=== PATIENT | male | born 1970 | race American Indian/Alaskan Native ===

== ENCOUNTER 2022-01-25 17:36 | Inpatient (IN) | payer MEDICAID ==
[2022-01-25 19:18] LABS: Basophils # (Auto) 0.1 K/mm3 (0.0-0.1); Basophils % (Auto) 0.8 % (0.0-1.8); Eosinophils # (Auto) 0.1 K/mm3 (0.0-0.4); Hematocrit 30.1 % (35.5-45.6); Hemoglobin 9.5 gm/dl (11.8-15.2); Lymphocytes # (Auto) 1.4 K/mm3 (1.2-5.4); Lymphocytes % (Auto) 15.9 % (13.4-35.0); Mean Corpuscular HGB Conc 32 % (32-34); Mean Corpuscular Volume 82 fl (84-94); Monocytes # (Auto) 0.5 K/mm3 (0.0-0.8); Monocytes % (Auto) 5.2 % (0.0-7.3); Platelet Count 281 K/mm3 (140-440); Red Blood Count 3.69 M/mm3 (3.65-5.03)
[2022-01-25 19:23] LABS: Calcium 8.6 mg/dL (8.4-10.2)
--- NOTE | 2022-01-25 20:51 | Emergency Department Report ---
- General Chief complaint: Weakness Stated complaint: EMERGENCY DIALYSIS TREATMENT PUI?: No Time Seen by Provider: 01/25/22 20:34 Source: patient Mode of arrival: Ambulatory Limitations: No Limitations - History of Present Illness Initial comments: Chief complaint: "I have not had dialysis in 5 days." HPI: This is a 51-year-old male with history of hypertension, insulin-dependent diabetes, CVA, end-stage renal disease on hemodialysis who presents with request for dialysis. He has missed dialysis for the past 8 days. His last dialysis occurred on at [facility]. He came to [place] because he felt that "they were playing with my life." He recently started hemodialysis 1 month ago. He was unable to obtain access to a hemodialysis facility. MD Complaint: generalized weakness (Patient requires hemodialysis) -: days(s) (Last hemodialysis session occurred 8 days ago on last week at [facility] in [place]) Location: other (Request dialysis) Severity scale (0 -10): 0 Consistency: other (Patient requests dialysis) Improves with: other (Dialysis) Worsens with: other (Asymptomatic) Context: recent illness (Started dialysis 1 month ago) Associated Symptoms: denies other symptoms, other (Denies shortness of breath denies chest pain denies fever denies cough) - Related Data Allergies Allergy/AdvReac Type Severity Reaction Status Date / Time No Known Allergies Allergy Verified 01/25/22 20:57 ED Review of Systems ROS: Stated complaint: EMERGENCY DIALYSIS TREATMENT Other details as noted in HPI Comment: All other systems reviewed and negative Constitutional: denies: chills, fever, malaise Respiratory: denies: cough, shortness of breath Cardiovascular: denies: chest pain Gastrointestinal: denies: abdominal pain, nausea, vomiting Neurological: denies: headache Psychiatric: denies: anxiety ED Past Medical Hx - Past Medical History Previous Medical History?: Yes Hx Hypertension: Yes Hx CVA: Yes Hx Diabetes: Yes Hx Renal Disease: Yes (End-stage renal disease on hemodialysis) - Surgical History Past Surgical History?: Yes Additional Surgical History: Open heart surgery for aortic repair, laser surgery for diabetic retinopathy - Family History Family history: hypertension, renal disease - Social History Smoking Status: Never Smoker Substance Use Type: None ED Physical Exam - General Limitations: No Limitations General appearance: alert, in no apparent distress - Head Head exam: Present: atraumatic, normocephalic - Eye Eye exam: Present: normal appearance - ENT ENT exam: Present: mucous membranes moist - Neck Neck exam: Present: normal inspection, full ROM - Respiratory Respiratory exam: Present: normal lung sounds bilaterally, other (Right chest permacath: Bandage clean dry intact). Absent: respiratory distress, wheezes, rales, rhonchi - Cardiovascular Cardiovascular Exam: Present: regular rate, normal rhythm. Absent: systolic murmur, diastolic murmur, rubs, gallop - GI/Abdominal GI/Abdominal exam: Present: soft, normal bowel sounds. Absent: distended, tenderness, guarding, rebound - Rectal Rectal exam: Present: deferred - Extremities Exam Extremities exam: Present: normal inspection - Neurological Exam Neurological exam: Present: alert, oriented X3 - Psychiatric Psychiatric exam: Present: normal affect, normal mood - Skin Skin exam: Present: warm, dry, intact, normal color. Absent: rash ED Course Vital Signs 01/25/22 01/25/22 18:10 20:45 Temperature 98 F Pulse Rate 70 69 Respiratory 16 11 L Rate Blood Pressure 182/128 Blood Pressure 187/126 182/128 [Left] O2 Sat by Pulse 98 100 Oximetry ED Medical Decision Making - Lab Data Result diagrams: 01/25/22 18:54 01/25/22 18:54 - EKG Data -: EKG Interpreted by Me EKG shows normal: sinus rhythm Rate: normal - EKG Data Interpretation: nonspecific ST-T wave glenn 01/25/22 20:50 EKG obtained 1820 EKG interpreted by vt Normal sinus rhythm rate 70 bpm abnormal axis normal intervals no ST elevation nonspecific T wave pattern - Medical Decision Making End-stage renal disease on hemodialysis without access to care. Patient has hyperkalemia 5.8 with significant uremia BUN mild acidosis bicarbonate 18, pseudohyponatremia presents with acute hyper glycemia I have consulted coat joiner lockstitch on-call Dr. Bueno who requested Kayexalate. I have treated patient with sodium bicarbonate, calcium gluconate, regular insulin without dextrose , albuterol. Patient admitted to hospital service in stable condition. Hypertensive urgency addressed with home medications carvedilol and isosorbide Critical care attestation.: If time is entered above; I have spent that time in minutes in the direct care of this critically ill patient, excluding procedure time. ED Disposition Clinical Impression: End stage renal disease on dialysis, Hyperkalemia, Uremia of renal origin, Hypertensive urgency Disposition: 09 ADMITTED INPATIENT Is pt being admited?: Yes Does the pt Need Aspirin: No Condition: Stable
[2022-01-25] MEDS ORDERED: CALCIUM GLUCONATE 1,000 MG in SODIUM CHLORIDE 0.9% 100 ML IV ONE (20:53)
[2022-01-25] MEDS ORDERED: SODIUM BICARB 8.4% 50 MEQ/50 ML SYRINGE IV ONE (20:53)
[2022-01-25] MEDS ORDERED: ALBUTEROL 2.5 MG/3 ML NEBU IH ONE (20:53)
[2022-01-25] MEDS ORDERED: INSULIN REGULAR, HUMAN 100 UNITS/1 ML IV STA (20:54)
[2022-01-25] MEDS ORDERED: SODIUM POLYSTYRENE 15 GM/60 ML ORAL LIQD PO ONE (20:56)
[2022-01-25] MEDS ORDERED: carvediloL 6.25 MG TAB PO ONE (22:15)
[2022-01-25] MEDS ORDERED: carvediloL 6.25 MG TAB PO STA (22:16)
[2022-01-25] MEDS ORDERED: ISOSORBIDE DINITRATE 10 MG TAB PO ONE (22:16)
[2022-01-25] MEDS ORDERED: ONDANSETRON 4 MG/2 ML INJ IV PRN (23:17)
[2022-01-25] MEDS ORDERED: MORPHINE 2 MG/1 ML INJ IV PRN (23:17)
[2022-01-25] MEDS ORDERED: MORPHINE 4 MG/1 ML INJ IV PRN (23:17)
[2022-01-25] MEDS ORDERED: MAGNESIUM HYDROXIDE (MOM) ORAL LIQD UDC PO PRN (23:17)
[2022-01-25] MEDS ORDERED: DEXTROSE 10% *Hypoglycemia IV PRN (23:25)
--- NOTE | 2022-01-25 23:26 | History and Physical Report ---
History of Present Illness Date of examination: 01/25/22 Date of admission: 01/25/2022 Chief complaint: End-stage renal disease requesting dialysis History of present illness: To 1-year-old male with known history of hypertension, CVA, insulin-dependent diabetes mellitus and end-stage renal disease who presents to the emergency room today requesting for dialysis. Patient states he has not had dialysis for the past 8 days. Was having dialysis at [facility] and eventually came to [place] for dialysis. Patient has not been able to get established at the dialysis facility. He denies any complaints today. Work-up in the emergency room today significant findings were that of hyperkalemia of 5.8. BUN of 99 creatinine of 9.2. Patient has had insulin and glucose, sodium bicarb and Kayexalate in the emergency room for the hyperkalemia. Signs Sales Representative on-call has been notified by the ER physician for possible dialysis. Past History Past Medical History: diabetes, dialysis, ESRD, hypertension, stroke Past Surgical History: Other (Open heart surgery for aortic repair, laser surgery for diabetic retinopathy) Social history: no significant social history Family history: hypertension, other (Kidney disease) Medications and Allergies Allergies Allergy/AdvReac Type Severity Reaction Status Date / Time No Known Allergies Allergy Verified 01/25/22 20:57 Active Meds: Active Medications Acetaminophen (Acetaminophen 325 Mg Tab) 650 mg PO Q4H PRN PRN Reason: Pain MILD(1-3)/Fever >100.5/CLARK Dextrose (Dextrose 50% In Water (25gm) 50 Ml Syringe) 50 ml IV Q30MIN PRN; Protocol PRN Reason: Hypoglycemia Heparin Sodium (Porcine) (Heparin 5,000 Unit/1 Ml Vial) 5,000 unit SUB-Q Q8HR [facility] Insulin Human Lispro (Insulin Lispro 100 Unit/Ml) 0 unit SUB-Q [facility]; Pro tocol Magnesium Hydroxide (Magnesium Hydroxide (Mom) Oral Liqd Udc) 30 ml PO Q4H PRN PRN Reason: Constipation Morphine Sulfate (Morphine 2 Mg/1 Ml Inj) 2 mg IV Q4H PRN PRN Reason: Pain, Moderate (4-6) Morphine Sulfate (Morphine 4 Mg/1 Ml Inj) 4 mg IV Q4H PRN PRN Reason: Pain , Severe (7-10) Ondansetron HCl (Ondansetron 4 Mg/2 Ml Inj) 4 mg IV Q8H PRN PRN Reason: Nausea And Vomiting Sodium Chloride (Sodium Chloride 0.9% 10 Ml Flush Syringe) 10 ml IV BID KRISTINA Sodium Chloride (Sodium Chloride 0.9% 10 Ml Flush Syringe) 10 ml IV PRN PRN PRN Reason: LINE FLUSH Review of Systems Constitutional: no fever, no chills Ears, nose, mouth and throat: no nasal congestion, no sore throat Cardiovascular: no chest pain, no palpitations Respiratory: no cough, no shortness of breath Gastrointestinal: no abdominal pain, no nausea, no vomiting, no diarrhea Genitourinary Male: no dysuria, no hematuria, no flank pain, no nocturia Musculoskeletal: no neck pain, no low back pain Integumentary: no rash, no pruritis Neurological: no headaches, no confusion Psychiatric: no anxiety, no depression Endocrine: no polyphagia, no polydipsia, no polyuria, no nocturia Exam - Constitutional Vitals: Temp Pulse Resp BP Pulse Ox 98 F 68 14 184/120 100 01/25/22 18:10 01/25/22 23:01 01/25/22 23:01 01/25/22 23:01 01/25/22 23:01 General appearance: Present: no acute distress, well-nourished - EENT Eyes: Present: PERRL, EOM intact. Absent: scleral icterus ENT: hearing intact, clear oral mucosa, dentition normal - Neck Neck: Present: supple, normal ROM - Respiratory Respiratory effort: normal Respiratory: bilateral: CTA - Cardiovascular Rhythm: regular Heart Sounds: Present: S1 & S2. Absent: gallop, systolic murmur, diastolic murmur, rub, click - Extremities Extremities: no ischemia, pulses intact, pulses symmetrical, No edema, normal temperature, normal color, Full ROM Peripheral Pulses: within normal limits - Abdominal General gastrointestinal: Present: soft, non-tender, non-distended, normal bowel sounds. Absent: mass - Integumentary Integumentary: Present: clear, dry, normal turgor. Absent: rash - Musculoskeletal Musculoskeletal: strength equal bilaterally - Psychiatric Psychiatric: appropriate mood/affect, intact judgment & insight, memory intact, cooperative - Neurologic Neurologic: CNII-XII intact, no focal deficits, moves all extremities Results - Labs CBC & Chem 7: 01/25/22 18:54 01/25/22 18:54 Labs: Abnormal lab results 01/25/22 01/25/22 Range/Units 18:54 18:54 Hgb 9.5 L (11.8-15.2) gm/dl Hct 30.1 L (35.5-45.6) % MCV 82 L (84-94) fl MCH 26 L (28-32) pg RDW 20.0 H (13.2-15.2) % Seg Neutrophils % 77.1 H (40.0-70.0) % Sodium 130 L (137-145) mmol/L Potassium 5.8 H (3.6-5.0) mmol/L Chloride 92.7 L (98-107) mmol/L Carbon Dioxide 18 L (22-30) mmol/L BUN 99 H (9-20) mg/dL Creatinine 9.2 H (0.8-1.3) mg/dL Glucose 429 H (75-100) mg/dL Assessment and Plan - Patient Problems (1) End stage renal disease on dialysis Current Visit: Yes Status: Acute Plan to address problem: Consult placed to nephrology for evaluation for possible dialysis. (2) Diabetes mellitus Current Visit: Yes Status: Acute Plan to address problem: Patient placed on sliding scale insulin. We will monitor Accu-Cheks. (3) Hyperkalemia Current Visit: Yes Status: Acute Plan to address problem: Patient has had insulin and glucose, sodium bicarb and Kayexalate in the emergency room. Will monitor potassium levels. We will also monitor on telemetry. (4) Hypertensive urgency Current Visit: Yes Status: Acute Plan to address problem: Resume routine home medications and monitor vital signs closely. Patient will also be placed on IV hydralazine as needed for optimal blood pressure control. (5) DVT prophylaxis Current Visit: Yes Status: Acute Plan to address problem: Patient placed on subcutaneous heparin. (6) Full code status Current Visit: Yes Status: Acute Plan to address problem: Patient is full code.
[2022-01-26] MEDS ORDERED: HEPARIN 10,000 UNITS/10 ML VIAL IV PRN (00:07)
[2022-01-26] MEDS ORDERED: SODIUM CHLORIDE 0.9% 100 ML IV PRN ×2 (00:07→17:44)
[2022-01-26] MEDS ORDERED: FUROSEMIDE 100 MG/10 ML INJ IV ONE (00:30)
[2022-01-26 05:35] LABS: Basophils # (Auto) 0.1 K/mm3 (0.0-0.1); Basophils % (Auto) 0.9 % (0.0-1.8); Eosinophils # (Auto) 0.1 K/mm3 (0.0-0.4); Eosinophils % (Auto) 1.2 % (0.0-4.3); Hematocrit 26.2 % (35.5-45.6); Hemoglobin 8.5 gm/dl (11.8-15.2); Lymphocytes # (Auto) 1.3 K/mm3 (1.2-5.4); Lymphocytes % (Auto) 15.9 % (13.4-35.0); Mean Corpuscular HGB Conc 32 % (32-34); Mean Corpuscular Volume 80 fl (84-94); Monocytes # (Auto) 0.4 K/mm3 (0.0-0.8); Platelet Count 264 K/mm3 (140-440); Red Blood Count 3.29 M/mm3 (3.65-5.03)
[2022-01-26 05:38] LABS: Red Cell Distribution Width 20.4 % (13.2-15.2)
[2022-01-26] MEDS: HEPARIN 5,000 UNIT/1 ML VIAL SUB-Q SCH ×4 (05:47→22:00)
[2022-01-26 05:56] LABS: Calcium 8.7 mg/dL (8.4-10.2)
[2022-01-26] MEDS: ACETAMINOPHEN 325 MG TAB PO PRN (07:58)
[2022-01-26] MEDS: EPOETIN ALFA-EPBX 10,000 UNIT/1 ML VIAL SUB-Q PRN (10:00)
[2022-01-26] MEDS: INSULIN LISPRO 100 UNIT/ML SUB-Q SCH ×4 (10:03→22:31)
--- NOTE | 2022-01-26 11:03 | Consultation ---
History of Present Illness - Reason for Consult Consult date: 01/26/22 end stage renal disease, hyperkalemia - History of Present Illness The patient is a 51 YO male with history of Hypertension, DM, CVA, Anemia and ESRD on HD who presented to [facility] ED 01/26 for hemodialysis riki. Patient states that he recently moved from [place]. He was started on hemodialysis about a month ago and was last dialyzed on 01/18. He denies any complaints at this time. Work-up in the ED; K 5.8, BUN 99, Bicarb 18 and Creatinine 9.2. Patient received meds for hyperkalemia. Nephrology consulted for ESRD management. Past History Past Medical History: diabetes, dialysis, ESRD, hypertension, stroke Past Surgical History: Other (Open heart surgery for aortic repair, laser surgery for diabetic retinopathy) Social history: no significant social history Family history: hypertension, other (Kidney disease) Medications and Allergies Allergies Allergy/AdvReac Type Severity Reaction Status Date / Time No Known Allergies Allergy Verified 01/25/22 20:57 Home Medications Medication Instructions Recorded Confirmed Last Taken Type Citalopram [Celexa] 40 mg PO DAILY 01/26/22 01/26/22 Unknown History ISOSORBIDE MONOnitrate [Imdur ER] 129 mg PO DAILY 01/26/22 01/26/22 Unknown History Spironolactone [Aldactone] 100 mg PO QDAY 01/26/22 01/26/22 Unknown History carvediloL [Coreg] 25 mg PO BID 01/26/22 01/26/22 Unknown History hydrALAZINE [Apresoline] 50 mg PO Q8HR 01/26/22 01/26/22 Unknown History Active Meds: Active Medications Acetaminophen (Acetaminophen 325 Mg Tab) 650 mg PO Q4H PRN PRN Reason: Pain MILD(1-3)/Fever >100.5/CLARK Last Admin: 01/26/22 07:58 Dose: 650 mg Dextrose (Dextrose 10% *Hypoglycemia) 0 ml IV DIRECT PRN; Protocol PRN Reason: Hypoglycemia Epoetin Jb-epbx (Epoetin Jb-Epbx 10,000 Unit/1 Ml Vial) 10,000 unit SUB-Q EVELINA PRN PRN Reason: hemodialysis Heparin Sodium (Porcine) (Heparin 5,000 Unit/1 Ml Vial) 5,000 unit SUB-Q Q8HR KRISTINA Last Admin: 01/26/22 05:47 Dose: 5,000 unit Heparin Sodium (Porcine) (Heparin 10,000 Units/10 Ml Vial) 3,000 unit IV EVELINA PRN PRN Reason: hemodialysis Sodium Chloride (Nacl 0.9%) 100 mls @ 999 mls/hr IV EVELINA PRN PRN Reason: Hypotension Insulin Human Lispro (Insulin Lispro 100 Unit/Ml) 0 unit SUB-Q ACHS [facility]; Protocol Last Admin: 01/26/22 10:03 Dose: 3 unit Magnesium Hydroxide (Magnesium Hydroxide (Mom) Oral Liqd Udc) 30 ml PO Q4H PRN PRN Reason: Constipation Morphine Sulfate (Morphine 2 Mg/1 Ml Inj) 2 mg IV Q4H PRN PRN Reason: Pain, Moderate (4-6) Morphine Sulfate (Morphine 4 Mg/1 Ml Inj) 4 mg IV Q4H PRN PRN Reason: Pain , Severe (7-10) Ondansetron HCl (Ondansetron 4 Mg/2 Ml Inj) 4 mg IV Q8H PRN PRN Reason: Nausea And Vomiting Sodium Chloride (Sodium Chloride 0.9% 10 Ml Flush Syringe) 10 ml IV BID [facility] Last Admin: 01/26/22 10:03 Dose: 10 ml Sodium Chloride (Sodium Chloride 0.9% 10 Ml Flush Syringe) 10 ml IV PRN PRN PRN Reason: LINE FLUSH Review of Systems All systems: negative Exam - Vital Signs Vital signs: Vital Signs Temp Pulse Resp BP Pulse Ox 98 F 70 16 187/126 98 01/25/22 18:10 01/25/22 18:10 01/25/22 18:10 01/25/22 18:10 01/25/22 18:10 Results - Lab Results 01/26/22 05:12 01/26/22 05:12 Most recent lab results Calcium 8.7 mg/dL (8.4-10.2) 01/26/22 05:12 Assessment and Plan 1. ESRD: Patient is on maintenance hemodialysis. Currently not established with any outpatient HD unit. Meds dosage based on GFR. Hemodialysis: 01/27. 2. FEN: Hyperkalemia, improved, on HD,monitor. Monitor lytes and volume status. 3. Uncontrolled HTN: Volume control thru HD. Continue home meds. Monitor BP. Advised to limit salt and fluid intake. 4. DM-2: Monitor. 5. Anemia, POA: 2/2 ESRD. Epogen with HD as needed. Subjective: Patient was seen and examined at the bedside. General Appearance: General appearance: well-developed, thin built, appears stated age, no distress EENT: ATNC, SAM, hearing intact, vision intact Neck: neck supple, trachea midline Respiratory: ctab Heart: regular, S1S2, no murmur Abdomen: soft, NT, BS heard Integumentary: no rash, warm and dry Neurologic: alert, no focal deficit, no asterixis Ext: no edema noted Hemodialysis access: R IJ tunnel catheter
--- NOTE | 2022-01-26 11:05 | Progress Note ---
Assessment and Plan Assessment and plan: 51-year-old male with known history of hypertension, CVA, insulin-dependent diabetes mellitus and end-stage renal disease who presents to the emergency room requesting for dialysis. 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 The patient was having dialysis at [facility] and eventually came to [place] for dialysis. Patient has not been able to get established at the dialysis facility. Work-up in the emergency room today significant findings were that of hyperkalemia of 5.8. BUN of 99 creatinine of 9.2. Patient received insulin and glucose, sodium bicarb and Kayexalate in the emergency room for the hyperkalemia. ESRD Diabetes mellitus type 2 Hyperkalemia Accelerated hypertension 01/26/2022. Patient to continue with hemodialysis per nephrology recommendation s. Case management consultation to arrange for outpatient hemodialysis. Follow-up BMP History Interval history: No new issues overnight Hospitalist Physical - Constitutional Vitals: Temp Pulse Resp BP Pulse Ox 98.6 F 72 16 182/116 98 01/26/22 08:35 01/26/22 10:00 01/26/22 08:35 01/26/22 08:35 01/26/22 10:00 General appearance: Present: no acute distress, well-nourished - EENT Eyes: Present: PERRL, EOM intact ENT: hearing intact, clear oral mucosa, dentition normal - Neck Neck: Present: supple, normal ROM - Respiratory Respiratory effort: normal Respiratory: bilateral: CTA - Cardiovascular Rhythm: regular Heart Sounds: Present: S1 & S2. Absent: gallop, rub - Extremities Extremities: no ischemia, No edema, Full ROM - Abdominal General gastrointestinal: soft, non-tender, non-distended, normal bowel sounds - Integumentary Integumentary: Present: clear, warm, dry - Neurologic Neurologic: CNII-XII intact, moves all extremities Results - Labs CBC & Chem 7: 01/26/22 05:12 01/26/22 05:12 Labs: Laboratory Last Values WBC 8.3 K/mm3 (4.5-11.0) 01/26/22 05:12 RBC 3.29 M/mm3 (3.65-5.03) L 01/26/22 05:12 Hgb 8.5 gm/dl (11.8-15.2) L 01/26/22 05:12 Hct 26.2 % (35.5-45.6) L 01/26/22 05:12 MCV 80 fl (84-94) L 01/26/22 05:12 MCH 26 pg (28-32) L 01/26/22 05:12 MCHC 32 % (32-34) 01/26/22 05:12 RDW 20.4 % (13.2-15.2) H 01/26/22 05:12 Plt Count 264 K/mm3 (140-440) 01/26/22 05:12 Lymph % (Auto) 15.9 % (13.4-35.0) 01/26/22 05:12 Lewis % (Auto) 5.0 % (0.0-7.3) 01/26/22 05:12 Eos % (Auto) 1.2 % (0.0-4.3) 01/26/22 05:12 Baso % (Auto) 0.9 % (0.0-1.8) 01/26/22 05:12 Lymph # (Auto) 1.3 K/mm3 (1.2-5.4) 01/26/22 05:12 Lewis # (Auto) 0.4 K/mm3 (0.0-0.8) 01/26/22 05:12 Eos # (Auto) 0.1 K/mm3 (0.0-0.4) 01/26/22 05:12 Baso # (Auto) 0.1 K/mm3 (0.0-0.1) 01/26/22 05:12 Seg Neutrophils % 77.0 % (40.0-70.0) H 01/26/22 05:12 Seg Neutrophils # 6.4 K/mm3 (1.8-7.7) 01/26/22 05:12 Sodium 137 mmol/L (137-145) D 01/26/22 05:12 Potassium 4.5 mmol/L (3.6-5.0) D 01/26/22 05:12 Chloride 99.6 mmol/L (98-107) 01/26/22 05:12 Carbon Dioxide 18 mmol/L (22-30) L 01/26/22 05:12 Anion Gap 24 mmol/L 01/26/22 05:12 BUN 101 mg/dL (9-20) H 01/26/22 05:12 Creatinine 9.3 mg/dL (0.8-1.3) H 01/26/22 05:12 Estimated GFR 7 ml/min 01/26/22 05:12 BUN/Creatinine Ratio 11 % 01/26/22 05:12 Glucose 226 mg/dL (75-100) H 01/26/22 05:12 POC Glucose 233 mg/dL (70-105) H 01/26/22 08:30 Calcium 8.7 mg/dL (8.4-10.2) 01/26/22 05:12 He/IV: Voiding Method Urinal Active Medications - Current Medications Current Medications: Generic Name Dose Route Start Last Admin Trade Name Freq PRN Reason Stop Dose Admin Acetaminophen 650 mg 01/25/22 23:17 01/26/22 07:58 Acetaminophen 325 Mg Tab PO 650 mg Q4H PRN Administration Pain MILD(1-3)/Fever >100.5/CLARK Dextrose 0 ml 01/25/22 23:25 Dextrose 10% *Hypoglycemia IV DIRECT PRN Hypoglycemia Protocol Epoetin Jb-epbx 10,000 unit 01/26/22 00:07 Epoetin Jb-Epbx 10,000 Unit/1 Ml Vial SUB-Q EVELINA PRN hemodialysis Heparin Sodium (Porcine) 5,000 unit 01/26/22 06:00 01/26/22 05:47 Heparin 5,000 Unit/1 Ml Vial SUB-Q 5,000 unit Q8HR KRISTINA Administration Heparin Sodium (Porcine) 3,000 unit 01/26/22 00:07 Heparin 10,000 Units/10 Ml Vial IV EVELINA PRN hemodialysis Sodium Chloride 100 mls @ 999 mls/hr 01/26/22 00:07 Nacl 0.9% IV EVELINA PRN Hypotension Insulin Human Lispro 0 unit 01/26/22 07:30 01/26/22 10:03 Insulin Lispro 100 Unit/Ml SUB-Q 3 unit ACHS KRISTINA Administration Protocol Magnesium Hydroxide 30 ml 01/25/22 23:17 Magnesium Hydroxide (Mom) Oral Liqd Udc PO Q4H PRN Constipation Morphine Sulfate 2 mg 01/25/22 23:17 Morphine 2 Mg/1 Ml Inj IV Q4H PRN Pain, Moderate (4-6) Morphine Sulfate 4 mg 01/25/22 23:17 Morphine 4 Mg/1 Ml Inj IV Q4H PRN Pain , Severe (7-10) Ondansetron HCl 4 mg 01/25/22 23:17 Ondansetron 4 Mg/2 Ml Inj IV Q8H PRN Nausea And Vomiting Sodium Chloride 10 ml 01/26/22 10:00 01/26/22 10:03 Sodium Chloride 0.9% 10 Ml Flush Syringe IV 10 ml BID KRISTINA Administration Sodium Chloride 10 ml 01/25/22 23:17 Sodium Chloride 0.9% 10 Ml Flush Syringe IV PRN PRN LINE FLUSH
[2022-01-26 15:34] LABS: Hepatitis B Surface Antigen Non-Reactive (Negative); Hepatitis C Virus Antibody Non-Reactive (NonReactive)
[2022-01-26] MEDS: cloNIDine 0.1 MG TAB PO PRN ×3 (17:45→18:45)
[2022-01-26] MEDS: NIFEdipine XL 90 MG TAB PO SCH (19:51)
[2022-01-26] MEDS: CITALOPRAM 20 MG TAB PO SCH (21:40)
[2022-01-26] MEDS: hydrALAZINE 25 MG TAB PO SCH (21:40)
[2022-01-26] MEDS: SPIRONOLACTONE 50 MG TAB PO SCH (21:41)
[2022-01-26] MEDS: carvediloL 25 MG TAB PO SCH (21:47)
[2022-01-27] MEDS: HEPARIN 5,000 UNIT/1 ML VIAL SUB-Q SCH ×3 (05:02→21:14)
[2022-01-27] MEDS: hydrALAZINE 25 MG TAB PO SCH ×3 (05:03→21:14)
[2022-01-27 05:39] LABS: Basophils % (Auto) 0.5 % (0.0-1.8); Eosinophils # (Auto) 0.1 K/mm3 (0.0-0.4); Eosinophils % (Auto) 0.9 % (0.0-4.3); Hematocrit 27.6 % (35.5-45.6); Hemoglobin 8.8 gm/dl (11.8-15.2); Lymphocytes # (Auto) 1.2 K/mm3 (1.2-5.4); Lymphocytes % (Auto) 14.1 % (13.4-35.0); Mean Corpuscular HGB Conc 32 % (32-34); Mean Corpuscular Volume 81 fl (84-94); Monocytes # (Auto) 0.5 K/mm3 (0.0-0.8); Monocytes % (Auto) 5.3 % (0.0-7.3); Platelet Count 284 K/mm3 (140-440); Red Blood Count 3.42 M/mm3 (3.65-5.03); Red Cell Distribution Width 19.8 % (13.2-15.2)
[2022-01-27 06:00] LABS: Calcium 8.2 mg/dL (8.4-10.2)
[2022-01-27] MEDS: carvediloL 25 MG TAB PO SCH ×2 (08:00→17:16)
[2022-01-27] MEDS: INSULIN LISPRO 100 UNIT/ML SUB-Q SCH ×4 (08:00→21:37)
[2022-01-27] MEDS: ACETAMINOPHEN 325 MG TAB PO PRN (09:23)
[2022-01-27] MEDS: CITALOPRAM 20 MG TAB PO SCH (11:11)
[2022-01-27] MEDS: NIFEdipine XL 90 MG TAB PO SCH (11:11)
[2022-01-27] MEDS: SPIRONOLACTONE 50 MG TAB PO SCH (11:11)
--- NOTE | 2022-01-27 11:16 | Discharge Summary ---
Providers - Providers Date of Admission: 01/25/22 23:17 Date of discharge: 01/27/22 Attending physician: FRANK JOHNSON 01/25/22 22:05 Consult to Physician [CONS] Stat Comment: Consulting Provider: MARCELINA HANSEN Physician Instructions: Reason For Exam: ESRD on HD 01/25/22 23:17 Consult to Dietitian/Nutrition [CONS] Routine Physician Instructions: Reason For Exam: Reason for Consult: Diet education [facility] Reason for admission: Missed hemodialysis Condition: Stable Hospital course: 51 YO male with history of Hypertension, DM, CVA, Anemia and ESRD on HD who presented to [facility] ED 01/26 for hemodialysis. Patient stated that he recently moved from [place]. He was started on hemodialysis about a month ago and was last dialyzed on 01/18. He denied any complaints at this time. Work-up in the ED; K 5.8, BUN 99, Bicarb 18 and Creatinine 9.2. Patient received meds for hyperkalemia. Nephrology consulted for ESRD management. The patient received hemodialysis with stabilization of potassium and volume status. Patient is felt to have received maximal hospital benefit and will be discharged home. Dedicated discharge time 35 minutes Disposition: 01 HOME / SELF CARE / HOMELESS Final Discharge Diagnosis (Prints w/discharge instructions): ESRD with missed HD, hypertension, diabetes mellitus type 2, anemia of chronic disease. Core Measure Documentation - Palliative Care Palliative Care/ Comfort Measures: Not Applicable - Core Measures Any of the following diagnoses?: none Exam - Constitutional Vitals: Temp Pulse Resp BP Pulse Ox 98.4 F 68 16 108/59 100 01/27/22 07:59 01/27/22 07:59 01/27/22 07:59 01/27/22 07:59 01/27/22 07:59 General appearance: Present: no acute distress, well-nourished - EENT Eyes: Present: PERRL ENT: hearing intact, clear oral mucosa - Neck Neck: Present: supple, normal ROM - Respiratory Respiratory effort: normal Respiratory: bilateral: CTA - Cardiovascular Heart Sounds: Present: S1 & S2. Absent: rub, click - Extremities Extremities: pulses symmetrical, No edema Peripheral Pulses: within normal limits - Abdominal General gastrointestinal: Present: soft, non-tender, non-distended, normal bowel sounds Male genitourinary: Present: normal - Integumentary Integumentary: Present: clear, warm, dry - Musculoskeletal Musculoskeletal: gait normal, strength equal bilaterally - Psychiatric Psychiatric: appropriate mood/affect, intact judgment & insight - Neurologic Neurologic: CNII-XII intact, moves all extremities Plan Activity: advance as tolerated Weight Bearing Status: Weight Bear as Tolerated Diet: renal Follow up with: CHAVO HERNANDEZ MD [Primary Care Provider] - 3-5 Days Prescriptions: Spironolactone [Aldactone] 100 mg PO QDAY #30 hydrALAZINE [Apresoline TAB] 50 mg PO Q8HR #90 Citalopram [Celexa] 40 mg PO DAILY #30 carvediloL [Coreg] 25 mg PO BID #60 ISOSORBIDE MONOnitrate [Imdur ER] 129 mg PO DAILY #30 NIFEdipine XL [Procardia Xl] 90 mg PO QDAY #30 tablet
--- NOTE | 2022-01-27 13:35 | Progress Note ---
Assessment and Plan 1. ESRD: Patient is on maintenance hemodialysis. Currently not established with any outpatient HD unit. Meds dosage based on GFR. Hemodialysis: 01/27. 2. FEN: Hyperkalemia, improved, on HD,monitor. Monitor lytes and volume status. 3. Uncontrolled HTN: Volume control thru HD. Continue home meds. Monitor BP, controlled now. Advised to limit salt and fluid intake. 4. DM-2: Monitor. 5. Anemia, POA: 2/2 ESRD. Epogen with HD as needed. Need outpatient HD chair. Subjective: Patient was seen and examined at the bedside. Doing ok. General Appearance: General appearance: well-developed, thin built, appears stated age, no distress EENT: ATNC, SAM, hearing intact, vision intact Neck: neck supple, trachea midline Respiratory: ctab Heart: regular, S1S2, no murmur Abdomen: soft, NT, BS heard Integumentary: no rash, warm and dry Neurologic: alert, no focal deficit, no asterixis Ext: no edema noted Hemodialysis access: R IJ tunnel catheter Subjective Date of service: 01/27/22 Objective - Vital Signs Vital signs: Vital Signs - 12hr 01/27/22 01/27/22 01/27/22 04:42 05:03 07:59 Temperature 98.1 F 98.4 F Pulse Rate 73 68 Respiratory 18 16 Rate Blood Pressure 130/71 130/71 108/59 O2 Sat by Pulse 98 100 Oximetry 01/27/22 11:55 Temperature 98.0 F Pulse Rate 69 Respiratory 16 Rate Blood Pressure 111/62 O2 Sat by Pulse 100 Oximetry - Lab 01/27/22 05:02 01/27/22 05:02 Most recent lab results Calcium 8.2 mg/dL (8.4-10.2) L 01/27/22 05:02 Medications & Allergies - Medications Allergies/Adverse Reactions: Allergies No Known Allergies Allergy (Verified 01/25/22 20:57) Home Medications: Home Medications Medication Instructions Recorded Confirmed Last Taken Type Citalopram [Celexa] 40 mg PO DAILY #30 01/27/22 Unknown Rx ISOSORBIDE MONOnitrate [Imdur ER] 129 mg PO DAILY #30 01/27/22 Unknown Rx NIFEdipine XL [Procardia Xl] 90 mg PO QDAY #30 tablet 01/27/22 Unknown Rx Spironolactone [Aldactone] 100 mg PO QDAY #30 01/27/22 Unknown Rx carvediloL [Coreg] 25 mg PO BID #60 01/27/22 Unknown Rx hydrALAZINE [Apresoline TAB] 50 mg PO Q8HR #90 01/27/22 Unknown Rx Active Medications: Generic Name Dose Route Start Last Admin Trade Name Freq PRN Reason Stop Dose Admin Acetaminophen 650 mg 01/25/22 23:17 01/27/22 09:23 Acetaminophen 325 Mg Tab PO 650 mg Q4H PRN Administration Pain MILD(1-3)/Fever >100.5/CLARK Carvedilol 25 mg 01/26/22 22:00 01/27/22 08:00 Carvedilol 25 Mg Tab PO 25 mg BID@0800,1700 KRISTINA Administration Citalopram Hydrobromide 40 mg 01/26/22 22:00 01/27/22 11:11 Citalopram 20 Mg Tab PO 40 mg QDAY KRISTINA Administration Clonidine HCl 0.1 mg 01/26/22 17:44 01/26/22 18:45 Clonidine 0.1 Mg Tab PO 0.1 mg EVELINA PRN Administration Hypertension Dextrose 0 ml 01/25/22 23:25 Dextrose 10% *Hypoglycemia IV DIRECT PRN Hypoglycemia Protocol Epoetin Jb-epbx 10,000 unit 01/26/22 00:07 Epoetin Jb-Epbx 10,000 Unit/1 Ml Vial SUB-Q EVELINA PRN hemodialysis Heparin Sodium (Porcine) 5,000 unit 01/26/22 06:00 01/27/22 05:02 Heparin 5,000 Unit/1 Ml Vial SUB-Q Not Given Q8HR KRISTINA Heparin Sodium (Porcine) 3,000 unit 01/26/22 00:07 Heparin 10,000 Units/10 Ml Vial IV EVELINA PRN hemodialysis Hydralazine HCl 50 mg 01/26/22 22:00 01/27/22 05:03 Hydralazine 25 Mg Tab PO 50 mg Q8HR KRISTINA Administration Sodium Chloride 100 mls @ 999 mls/hr 01/26/22 17:44 Nacl 0.9% IV EVELINA PRN Hypotension Insulin Human Lispro 0 unit 01/26/22 07:30 01/27/22 12:47 Insulin Lispro 100 Unit/Ml SUB-Q 4 unit ACHS KRISTINA Administration Protocol Isosorbide Mononitrate 120 mg 01/26/22 22:00 01/27/22 11:11 Isosorbide Mononitrate Er 60 Mg Tab PO 120 mg QDAY KRISTINA Administration Magnesium Hydroxide 30 ml 01/25/22 23:17 Magnesium Hydroxide (Mom) Oral Liqd Udc PO Q4H PRN Constipation Morphine Sulfate 2 mg 01/25/22 23:17 Morphine 2 Mg/1 Ml Inj IV Q4H PRN Pain, Moderate (4-6) Morphine Sulfate 4 mg 01/25/22 23:17 Morphine 4 Mg/1 Ml Inj IV Q4H PRN Pain , Severe (7-10) Nifedipine 90 mg 01/26/22 19:00 01/27/22 11:11 Nifedipine Xl 90 Mg Tab PO 90 mg QDAY KRISTINA Administration Ondansetron HCl 4 mg 01/25/22 23:17 Ondansetron 4 Mg/2 Ml Inj IV Q8H PRN Nausea And Vomiting Sodium Chloride 10 ml 01/26/22 10:00 01/27/22 11:12 Sodium Chloride 0.9% 10 Ml Flush Syringe IV 10 ml BID KRISTINA Administration Sodium Chloride 10 ml 01/25/22 23:17 Sodium Chloride 0.9% 10 Ml Flush Syringe IV PRN PRN LINE FLUSH Spironolactone 100 mg 01/26/22 22:00 01/27/22 11:11 Spironolactone 50 Mg Tab PO 100 mg QDAY KRISTINA Administration
[2022-01-28] MEDS: ACETAMINOPHEN 325 MG TAB PO PRN ×2 (03:56→23:40)
[2022-01-28] MEDS: hydrALAZINE 25 MG TAB PO SCH ×3 (06:01→21:40)
[2022-01-28] MEDS: HEPARIN 5,000 UNIT/1 ML VIAL SUB-Q SCH ×3 (06:24→23:36)
--- NOTE | 2022-01-28 08:36 | Electrocardiograph Report ---
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
[2022-01-28] MEDS: INSULIN LISPRO 100 UNIT/ML SUB-Q SCH ×4 (08:46→23:40)
[2022-01-28] MEDS: carvediloL 25 MG TAB PO SCH ×2 (08:47→17:19)
--- NOTE | 2022-01-28 08:54 | Progress Note ---
Assessment and Plan Assessment and plan: 51-year-old male with known history of hypertension, CVA, insulin-dependent diabetes mellitus and end-stage renal disease who presents to the emergency room requesting for dialysis. 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 The patient was having dialysis at [facility] and eventually came to [place] for dialysis. Patient has not been able to get established at the dialysis facility. Work-up in the emergency room today significant findings were that of hyperkalemia of 5.8. BUN of 99 creatinine of 9.2. Patient received insulin and glucose, sodium bicarb and Kayexalate in the emergency room for the hyperkalemia. ESRD Diabetes mellitus type 2 Hyperkalemia Accelerated hypertension 01/26/2022. Patient to continue with hemodialysis per nephrology recommendation s. Case management consultation to arrange for outpatient hemodialysis. Follow-up BMP 01/27/2022. Patient to continue with hemodialysis per nephrology recommendations. Await case management follow-up with regards to outpatient hemodialysis History Interval history: No new issues overnight Hospitalist Physical - Constitutional Vitals: Temp Pulse Resp BP Pulse Ox 97.8 F 77 19 135/75 100 01/28/22 08:34 01/28/22 08:47 01/28/22 03:24 01/28/22 08:34 01/28/22 08:34 General appearance: Present: no acute distress, well-nourished - EENT Eyes: Present: PERRL, EOM intact ENT: hearing intact, clear oral mucosa, dentition normal - Neck Neck: Present: supple, normal ROM - Respiratory Respiratory effort: normal Respiratory: bilateral: CTA - Cardiovascular Rhythm: regular Heart Sounds: Present: S1 & S2. Absent: gallop, rub - Extremities Extremities: no ischemia, No edema, Full ROM - Abdominal General gastrointestinal: soft, non-tender, non-distended, normal bowel sounds - Integumentary Integumentary: Present: clear, warm, dry - Neurologic Neurologic: CNII-XII intact, moves all extremities Results - Labs CBC & Chem 7: 01/27/22 05:02 01/27/22 05:02 Labs: Laboratory Last Values WBC 8.7 K/mm3 (4.5-11.0) 01/27/22 05:02 RBC 3.42 M/mm3 (3.65-5.03) L 01/27/22 05:02 Hgb 8.8 gm/dl (11.8-15.2) L 01/27/22 05:02 Hct 27.6 % (35.5-45.6) L 01/27/22 05:02 MCV 81 fl (84-94) L 01/27/22 05:02 MCH 26 pg (28-32) L 01/27/22 05:02 MCHC 32 % (32-34) 01/27/22 05:02 RDW 19.8 % (13.2-15.2) H 01/27/22 05:02 Plt Count 284 K/mm3 (140-440) 01/27/22 05:02 Lymph % (Auto) 14.1 % (13.4-35.0) 01/27/22 05:02 [place] % (Auto) 5.3 % (0.0-7.3) 01/27/22 05:02 Eos % (Auto) 0.9 % (0.0-4.3) 01/27/22 05:02 Baso % (Auto) 0.5 % (0.0-1.8) 01/27/22 05:02 Lymph # (Auto) 1.2 K/mm3 (1.2-5.4) 01/27/22 05:02 [place] # (Auto) 0.5 K/mm3 (0.0-0.8) 01/27/22 05:02 Eos # (Auto) 0.1 K/mm3 (0.0-0.4) 01/27/22 05:02 Baso # (Auto) 0.0 K/mm3 (0.0-0.1) 01/27/22 05:02 Seg Neutrophils % 79.2 % (40.0-70.0) H 01/27/22 05:02 Seg Neutrophils # 6.9 K/mm3 (1.8-7.7) 01/27/22 05:02 Sodium 134 mmol/L (137-145) L 01/27/22 05:02 Potassium 3.7 mmol/L (3.6-5.0) 01/27/22 05:02 Chloride 96.1 mmol/L (98-107) L 01/27/22 05:02 Carbon Dioxide 23 mmol/L (22-30) 01/27/22 05:02 Anion Gap 19 mmol/L 01/27/22 05:02 BUN 45 mg/dL (9-20) H 01/27/22 05:02 Creatinine 5.3 mg/dL (0.8-1.3) H 01/27/22 05:02 Estimated GFR 14 ml/min 01/27/22 05:02 BUN/Creatinine Ratio 8 % 01/27/22 05:02 Glucose 229 mg/dL (75-100) H 01/27/22 05:02 POC Glucose 169 mg/dL (70-105) H 01/28/22 08:28 Calcium 8.2 mg/dL (8.4-10.2) L 01/27/22 05:02 Hepatitis A IgM Ab Non-reactive (NonReactive) 01/26/22 14:22 Hep Bs Antigen Non-reactive (Negative) 01/26/22 14:22 Hep B Core IgM Ab Non-reactive (NonReactive) 01/26/22 14:22 Hepatitis C Antibody Non-reactive (NonReactive) 01/26/22 14:22 He/IV: Voiding Method Urinal Active Medications - Current Medications Current Medications: Generic Name Dose Route Start Last Admin Trade Name Freq PRN Reason Stop Dose Admin Acetaminophen 650 mg 01/25/22 23:17 01/28/22 03:56 Acetaminophen 325 Mg Tab PO 650 mg Q4H PRN Administration Pain MILD(1-3)/Fever >100.5/CLARK Carvedilol 25 mg 01/26/22 22:00 01/28/22 08:47 Carvedilol 25 Mg Tab PO 25 mg BID@0800,1700 KRISTINA Administration Citalopram Hydrobromide 40 mg 01/26/22 22:00 01/27/22 11:11 Citalopram 20 Mg Tab PO 40 mg QDAY KRISTINA Administration Clonidine HCl 0.1 mg 01/26/22 17:44 01/26/22 18:45 Clonidine 0.1 Mg Tab PO 0.1 mg EVELINA PRN Administration Hypertension Dextrose 0 ml 01/25/22 23:25 Dextrose 10% *Hypoglycemia IV DIRECT PRN Hypoglycemia Protocol Epoetin Jb-epbx 10,000 unit 01/26/22 00:07 Epoetin Jb-Epbx 10,000 Unit/1 Ml Vial SUB-Q EVELINA PRN hemodialysis Heparin Sodium (Porcine) 5,000 unit 01/26/22 06:00 01/28/22 06:24 Heparin 5,000 Unit/1 Ml Vial SUB-Q Not Given Q8HR [facility] Heparin Sodium (Porcine) 3,000 unit 01/26/22 00:07 Heparin 10,000 Units/10 Ml Vial IV EVELINA PRN hemodialysis Hydralazine HCl 50 mg 01/26/22 22:00 01/28/22 06:01 Hydralazine 25 Mg Tab PO 50 mg Q8HR [facility] Administration Sodium Chloride 100 mls @ 999 mls/hr 01/26/22 17:44 Nacl 0.9% IV EVELINA PRN Hypotension Insulin Human Lispro 0 unit 01/26/22 07:30 01/28/22 08:46 Insulin Lispro 100 Unit/Ml SUB-Q 2 unit ACHS [facility] Administration Protocol Isosorbide Mononitrate 120 mg 01/26/22 22:00 01/27/22 11:11 Isosorbide Mononitrate Er 60 Mg Tab PO 120 mg QDAY [facility] Administration Magnesium Hydroxide 30 ml 01/25/22 23:17 Magnesium Hydroxide (Mom) Oral Liqd Udc PO Q4H PRN Constipation Morphine Sulfate 2 mg 01/25/22 23:17 Morphine 2 Mg/1 Ml Inj IV Q4H PRN Pain, Moderate (4-6) Morphine Sulfate 4 mg 01/25/22 23:17 Morphine 4 Mg/1 Ml Inj IV Q4H PRN Pain , Severe (7-10) Nifedipine 90 mg 01/26/22 19:00 01/27/22 11:11 Nifedipine Xl 90 Mg Tab PO 90 mg QDAY [facility] Administration Ondansetron HCl 4 mg 01/25/22 23:17 Ondansetron 4 Mg/2 Ml Inj IV Q8H PRN Nausea And Vomiting Sodium Chloride 10 ml 01/26/22 10:00 01/27/22 21:15 Sodium Chloride 0.9% 10 Ml Flush Syringe IV 10 ml BID KRISTINA Administration Sodium Chloride 10 ml 01/25/22 23:17 Sodium Chloride 0.9% 10 Ml Flush Syringe IV PRN PRN LINE FLUSH Spironolactone 100 mg 01/26/22 22:00 01/27/22 11:11 Spironolactone 50 Mg Tab PO 100 mg QDAY [facility] Administration Nutrition/Malnutrition Assess - Dietary Evaluation Nutrition/Malnutrition Findings: Nutrition Notes Start: 01/27/22 14:53 Freq: Status: Active Protocol: Document 01/27/22 14:53 RS (Rec: 01/27/22 15:06 RS [id number]) Nutrition Notes Need for Assessment generated from: MD Order Initial or Follow up Assessment Current Diagnosis CKD (stage V CKD),Diabetes, Hypertension Other Pertinent Diagnosis CVA Current Diet Cardiac/Consistent CHO diet Labs/Tests Na:134 Cl: 96.1 BUN:45 Cr: 5.3 GLU:229 Ca: 8.2 Pertinent Medications reviewed Subjective/Other Information MD Consult for diet education. Pt does not have outpatient HD facility and must dialyze in hospital. RD provided education on renal diet. RD reviewed importance of HBV protein in relation to medical condition. RD reviewed high/ low potassium foods. RD reviewed sodium/fluid restrictions 2g/1L restriction . RD reviewed foods high in dietary PO4 and advised pt to avoid/limit high PO4 foods. Pt reports good appetite, eating well, and consumes meals BID. No GI or digestive concerns noted. Will sign off. #1 Nutrition Diagnosis Food and nutrition-related knowledge deficit Etiology ESRD renal diet As Evidenced by Signs and Symptoms pt verbalizing not having dialysis diet education before and pt does not belong to an outpatient HD clinic Diagnosis Progress(for reassessment Resolved documentation) Nutrition Intervention Learning Readiness Good Teaching Methods Discussion Anticipated Discharge Needs: Renal diet Revisit per MD consult or patient Sign Off request:
--- NOTE | 2022-01-28 08:55 | Progress Note ---
Assessment and Plan Assessment and plan: 51-year-old male with known history of hypertension, CVA, insulin-dependent diabetes mellitus and end-stage renal disease who presents to the emergency room requesting for dialysis. 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 Patient has not been able to get established at the dialysis facility. Work-up in the emergency room today significant findings were that of hyperkalemia of 5.8. BUN of 99 creatinine of 9.2. Patient received insulin and glucose, sodium bicarb and Kayexalate in the emergency room for the hyperkalemia. ESRD Diabetes mellitus type 2 Hyperkalemia Accelerated hypertension 01/26/2022. Patient to continue with hemodialysis per nephrology recommendation s. Case management consultation to arrange for outpatient hemodialysis. Follow-up BMP 01/27/2022. Patient to continue with hemodialysis per nephrology recommendations. Await case management follow-up with regards to outpatient hemodialysis 01/28/2022. Continue hemodialysis per nephrology recommendations. I discussed with nephrology the need for arrangements around outpatient hemodialysis. Await case management follow-up History Interval history: No new issues overnight Hospitalist Physical - Constitutional Vitals: Temp Pulse Resp BP Pulse Ox 97.8 F 77 19 135/75 100 01/28/22 08:34 01/28/22 08:47 01/28/22 03:24 01/28/22 08:34 01/28/22 08:34 General appearance: Present: no acute distress, well-nourished - EENT Eyes: Present: PERRL, EOM intact ENT: hearing intact, clear oral mucosa, dentition normal - Neck Neck: Present: supple, normal ROM - Respiratory Respiratory effort: normal Respiratory: bilateral: CTA - Cardiovascular Rhythm: regular Heart Sounds: Present: S1 & S2. Absent: gallop, rub - Extremities Extremities: no ischemia, No edema, Full ROM - Abdominal General gastrointestinal: soft, non-tender, non-distended, normal bowel sounds - Integumentary Integumentary: Present: clear, warm, dry - Neurologic Neurologic: CNII-XII intact, moves all extremities Results - Labs CBC & Chem 7: 01/27/22 05:02 01/27/22 05:02 Labs: Laboratory Last Values WBC 8.7 K/mm3 (4.5-11.0) 01/27/22 05:02 RBC 3.42 M/mm3 (3.65-5.03) L 01/27/22 05:02 Hgb 8.8 gm/dl (11.8-15.2) L 01/27/22 05:02 Hct 27.6 % (35.5-45.6) L 01/27/22 05:02 MCV 81 fl (84-94) L 01/27/22 05:02 MCH 26 pg (28-32) L 01/27/22 05:02 MCHC 32 % (32-34) 01/27/22 05:02 RDW 19.8 % (13.2-15.2) H 01/27/22 05:02 Plt Count 284 K/mm3 (140-440) 01/27/22 05:02 Lymph % (Auto) 14.1 % (13.4-35.0) 01/27/22 05:02 [place] % (Auto) 5.3 % (0.0-7.3) 01/27/22 05:02 Eos % (Auto) 0.9 % (0.0-4.3) 01/27/22 05:02 Baso % (Auto) 0.5 % (0.0-1.8) 01/27/22 05:02 Lymph # (Auto) 1.2 K/mm3 (1.2-5.4) 01/27/22 05:02 [place] # (Auto) 0.5 K/mm3 (0.0-0.8) 01/27/22 05:02 Eos # (Auto) 0.1 K/mm3 (0.0-0.4) 01/27/22 05:02 Baso # (Auto) 0.0 K/mm3 (0.0-0.1) 01/27/22 05:02 Seg Neutrophils % 79.2 % (40.0-70.0) H 01/27/22 05:02 Seg Neutrophils # 6.9 K/mm3 (1.8-7.7) 01/27/22 05:02 Sodium 134 mmol/L (137-145) L 01/27/22 05:02 Potassium 3.7 mmol/L (3.6-5.0) 01/27/22 05:02 Chloride 96.1 mmol/L (98-107) L 01/27/22 05:02 Carbon Dioxide 23 mmol/L (22-30) 01/27/22 05:02 Anion Gap 19 mmol/L 01/27/22 05:02 BUN 45 mg/dL (9-20) H 01/27/22 05:02 Creatinine 5.3 mg/dL (0.8-1.3) H 01/27/22 05:02 Estimated GFR 14 ml/min 01/27/22 05:02 BUN/Creatinine Ratio 8 % 01/27/22 05:02 Glucose 229 mg/dL (75-100) H 01/27/22 05:02 POC Glucose 169 mg/dL (70-105) H 01/28/22 08:28 Calcium 8.2 mg/dL (8.4-10.2) L 01/27/22 05:02 Hepatitis A IgM Ab Non-reactive (NonReactive) 01/26/22 14:22 Hep Bs Antigen Non-reactive (Negative) 01/26/22 14:22 Hep B Core IgM Ab Non-reactive (NonReactive) 01/26/22 14:22 Hepatitis C Antibody Non-reactive (NonReactive) 01/26/22 14:22 He/IV: Voiding Method Urinal Active Medications - Current Medications Current Medications: Generic Name Dose Route Start Last Admin Trade Name Freq PRN Reason Stop Dose Admin Acetaminophen 650 mg 01/25/22 23:17 01/28/22 03:56 Acetaminophen 325 Mg Tab PO 650 mg Q4H PRN Administration Pain MILD(1-3)/Fever >100.5/CLARK Carvedilol 25 mg 01/26/22 22:00 01/28/22 08:47 Carvedilol 25 Mg Tab PO 25 mg BID@0800,1700 KRISTINA Administration Citalopram Hydrobromide 40 mg 01/26/22 22:00 01/27/22 11:11 Citalopram 20 Mg Tab PO 40 mg QDAY KRISTINA Administration Clonidine HCl 0.1 mg 01/26/22 17:44 01/26/22 18:45 Clonidine 0.1 Mg Tab PO 0.1 mg EVELINA PRN Administration Hypertension Dextrose 0 ml 01/25/22 23:25 Dextrose 10% *Hypoglycemia IV DIRECT PRN Hypoglycemia Protocol Epoetin Jb-epbx 10,000 unit 01/26/22 00:07 Epoetin Jb-Epbx 10,000 Unit/1 Ml Vial SUB-Q EVELINA PRN hemodialysis Heparin Sodium (Porcine) 5,000 unit 01/26/22 06:00 01/28/22 06:24 Heparin 5,000 Unit/1 Ml Vial SUB-Q Not Given Q8HR [facility] Heparin Sodium (Porcine) 3,000 unit 01/26/22 00:07 Heparin 10,000 Units/10 Ml Vial IV EVELINA PRN hemodialysis Hydralazine HCl 50 mg 01/26/22 22:00 01/28/22 06:01 Hydralazine 25 Mg Tab PO 50 mg Q8HR KRISTINA Administration Sodium Chloride 100 mls @ 999 mls/hr 01/26/22 17:44 Nacl 0.9% IV EVELINA PRN Hypotension Insulin Human Lispro 0 unit 01/26/22 07:30 01/28/22 08:46 Insulin Lispro 100 Unit/Ml SUB-Q 2 unit ACHS KRISTINA Administration Protocol Isosorbide Mononitrate 120 mg 01/26/22 22:00 01/27/22 11:11 Isosorbide Mononitrate Er 60 Mg Tab PO 120 mg QDAY [facility] Administration Magnesium Hydroxide 30 ml 01/25/22 23:17 Magnesium Hydroxide (Mom) Oral Liqd Udc PO Q4H PRN Constipation Morphine Sulfate 2 mg 01/25/22 23:17 Morphine 2 Mg/1 Ml Inj IV Q4H PRN Pain, Moderate (4-6) Morphine Sulfate 4 mg 01/25/22 23:17 Morphine 4 Mg/1 Ml Inj IV Q4H PRN Pain , Severe (7-10) Nifedipine 90 mg 01/26/22 19:00 01/27/22 11:11 Nifedipine Xl 90 Mg Tab PO 90 mg QDAY [facility] Administration Ondansetron HCl 4 mg 01/25/22 23:17 Ondansetron 4 Mg/2 Ml Inj IV Q8H PRN Nausea And Vomiting Sodium Chloride 10 ml 01/26/22 10:00 01/27/22 21:15 Sodium Chloride 0.9% 10 Ml Flush Syringe IV 10 ml BID KRISTINA Administration Sodium Chloride 10 ml 01/25/22 23:17 Sodium Chloride 0.9% 10 Ml Flush Syringe IV PRN PRN LINE FLUSH Spironolactone 100 mg 01/26/22 22:00 01/27/22 11:11 Spironolactone 50 Mg Tab PO 100 mg QDAY KRISTINA Administration Nutrition/Malnutrition Assess - Dietary Evaluation Nutrition/Malnutrition Findings: Nutrition Notes Start: 01/27/22 14:53 Freq: Status: Active Protocol: Document 01/27/22 14:53 RS (Rec: 01/27/22 15:06 RS [id number]) Nutrition Notes Need for Assessment generated from: MD Order Initial or Follow up Assessment Current Diagnosis CKD (stage V CKD),Diabetes, Hypertension Other Pertinent Diagnosis CVA Current Diet Cardiac/Consistent CHO diet Labs/Tests Na:134 Cl: 96.1 BUN:45 Cr: 5.3 GLU:229 Ca: 8.2 Pertinent Medications reviewed Subjective/Other Information MD Consult for diet education. Pt does not have outpatient HD facility and must dialyze in hospital. RD provided education on renal diet. RD reviewed importance of HBV protein in relation to medical condition. RD reviewed high/ low potassium foods. RD reviewed sodium/fluid restrictions 2g/1L restriction . RD reviewed foods high in dietary PO4 and advised pt to avoid/limit high PO4 foods. Pt reports good appetite, eating well, and consumes meals BID. No GI or digestive concerns noted. Will sign off. #1 Nutrition Diagnosis Food and nutrition-related knowledge deficit Etiology ESRD renal diet As Evidenced by Signs and Symptoms pt verbalizing not having dialysis diet education before and pt does not belong to an outpatient HD clinic Diagnosis Progress(for reassessment Resolved documentation) Nutrition Intervention Learning Readiness Good Teaching Methods Discussion Anticipated Discharge Needs: Renal diet Revisit per MD consult or patient Sign Off request:
--- NOTE | 2022-01-28 08:57 | Electrocardiograph Report ---
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
[2022-01-28] MEDS: CITALOPRAM 20 MG TAB PO SCH (09:17)
[2022-01-28] MEDS: NIFEdipine XL 90 MG TAB PO SCH (09:17)
[2022-01-28] MEDS: SPIRONOLACTONE 50 MG TAB PO SCH (09:17)
[2022-01-28] MEDS: EPOETIN ALFA-EPBX 10,000 UNIT/1 ML VIAL SUB-Q PRN (12:15)
--- NOTE | 2022-01-28 14:29 | Progress Note ---
Assessment and Plan 1. ESRD: Patient is on maintenance hemodialysis. Currently not established with any outpatient HD unit. Meds dosage based on GFR. Hemodialysis: 01/26, 01/28. 2. FEN: Hyperkalemia, improved, on HD,monitor. Monitor lytes and volume status. 3. Uncontrolled HTN: Volume control thru HD. Continue home meds. Monitor BP, controlled now. Advised to limit salt and fluid intake. 4. DM-2: Monitor. 5. Anemia, POA: 2/2 ESRD. Epogen with HD as needed. Need outpatient HD chair. Subjective: Patient was seen and examined at the bedside. Doing ok. General Appearance: General appearance: well-developed, thin built, appears stated age, no distress EENT: ATNC, SAM, hearing intact, vision intact Neck: neck supple, trachea midline Respiratory: ctab Heart: regular, S1S2, no murmur Abdomen: soft, NT, BS heard Integumentary: no rash, warm and dry Neurologic: alert, no focal deficit, no asterixis Ext: no edema noted Hemodialysis access: R IJ tunnel catheter Subjective Date of service: 01/28/22 Objective - Vital Signs Vital signs: Vital Signs - 12hr 01/28/22 01/28/22 01/28/22 03:24 04:00 06:01 Temperature 100.0 F H 98.8 F Pulse Rate 77 77 Pulse Rate [ Popliteal] Respiratory 19 Rate Blood Pressure 137/82 137/82 O2 Sat by Pulse 94 Oximetry 01/28/22 01/28/22 01/28/22 08:34 08:47 10:00 Temperature 97.8 F Pulse Rate 77 77 Pulse Rate [ 77 Popliteal] Respiratory Rate Blood Pressure 135/75 O2 Sat by Pulse 100 100 Oximetry 01/28/22 01/28/22 14:00 14:24 Temperature Pulse Rate 96 H 96 H Pulse Rate [ Popliteal] Respiratory Rate Blood Pressure O2 Sat by Pulse Oximetry - Lab 01/27/22 05:02 01/27/22 05:02 Most recent lab results Calcium 8.2 mg/dL (8.4-10.2) L 01/27/22 05:02 Medications & Allergies - Medications Allergies/Adverse Reactions: Allergies No Known Allergies Allergy (Verified 01/25/22 20:57) Home Medications: Home Medications Medication Instructions Recorded Confirmed Last Taken Type Citalopram [Celexa] 40 mg PO DAILY #30 01/27/22 Unknown Rx ISOSORBIDE MONOnitrate [Imdur ER] 129 mg PO DAILY #30 01/27/22 Unknown Rx NIFEdipine XL [Procardia Xl] 90 mg PO QDAY #30 tablet 01/27/22 Unknown Rx Spironolactone [Aldactone] 100 mg PO QDAY #30 01/27/22 Unknown Rx carvediloL [Coreg] 25 mg PO BID #60 01/27/22 Unknown Rx hydrALAZINE [Apresoline TAB] 50 mg PO Q8HR #90 01/27/22 Unknown Rx Active Medications: Generic Name Dose Route Start Last Admin Trade Name Freq PRN Reason Stop Dose Admin Acetaminophen 650 mg 01/25/22 23:17 01/28/22 03:56 Acetaminophen 325 Mg Tab PO 650 mg Q4H PRN Administration Pain MILD(1-3)/Fever >100.5/CLARK Carvedilol 25 mg 01/26/22 22:00 01/28/22 08:47 Carvedilol 25 Mg Tab PO 25 mg BID@0800,1700 KRISTINA Administration Citalopram Hydrobromide 40 mg 01/26/22 22:00 01/28/22 09:17 Citalopram 20 Mg Tab PO Not Given QDAY KRISTINA Clonidine HCl 0.1 mg 01/26/22 17:44 01/26/22 18:45 Clonidine 0.1 Mg Tab PO 0.1 mg EVELINA PRN Administration Hypertension Dextrose 0 ml 01/25/22 23:25 Dextrose 10% *Hypoglycemia IV DIRECT PRN Hypoglycemia Protocol Epoetin Jb-epbx 10,000 unit 01/26/22 00:07 Epoetin Jb-Epbx 10,000 Unit/1 Ml Vial SUB-Q EVELINA PRN hemodialysis Heparin Sodium (Porcine) 5,000 unit 01/26/22 06:00 01/28/22 14:24 Heparin 5,000 Unit/1 Ml Vial SUB-Q Not Given Q8HR KRISTINA Heparin Sodium (Porcine) 3,000 unit 01/26/22 00:07 Heparin 10,000 Units/10 Ml Vial IV EVELINA PRN hemodialysis Hydralazine HCl 50 mg 01/26/22 22:00 01/28/22 14:24 Hydralazine 25 Mg Tab PO 50 mg Q8HR KRISTINA Administration Sodium Chloride 100 mls @ 999 mls/hr 01/26/22 17:44 Nacl 0.9% IV EVELINA PRN Hypotension Insulin Human Lispro 0 unit 01/26/22 07:30 01/28/22 14:15 Insulin Lispro 100 Unit/Ml SUB-Q Not Given [facility] Protocol Isosorbide Mononitrate 120 mg 01/26/22 22:00 01/28/22 09:17 Isosorbide Mononitrate Er 60 Mg Tab PO Not Given QDAY [facility] Magnesium Hydroxide 30 ml 01/25/22 23:17 Magnesium Hydroxide (Mom) Oral Liqd Udc PO Q4H PRN Constipation Morphine Sulfate 2 mg 01/25/22 23:17 Morphine 2 Mg/1 Ml Inj IV Q4H PRN Pain, Moderate (4-6) Morphine Sulfate 4 mg 01/25/22 23:17 Morphine 4 Mg/1 Ml Inj IV Q4H PRN Pain , Severe (7-10) Nifedipine 90 mg 01/26/22 19:00 01/28/22 09:17 Nifedipine Xl 90 Mg Tab PO Not Given QDAY [facility] Ondansetron HCl 4 mg 01/25/22 23:17 Ondansetron 4 Mg/2 Ml Inj IV Q8H PRN Nausea And Vomiting Sodium Chloride 10 ml 01/26/22 10:00 01/28/22 09:18 Sodium Chloride 0.9% 10 Ml Flush Syringe IV 10 ml BID [facility] Administration Sodium Chloride 10 ml 01/25/22 23:17 Sodium Chloride 0.9% 10 Ml Flush Syringe IV PRN PRN LINE FLUSH Spironolactone 100 mg 01/26/22 22:00 01/28/22 09:17 Spironolactone 50 Mg Tab PO Not Given QDAY [facility]
--- NOTE | 2022-01-28 16:42 | XRay Report ---
CHEST 1 VIEW 01/28/2022 2:16 PM INDICATION / CLINICAL INFORMATION: To r/o TB, required for outpatient hemodialysis.. COMPARISON: None available. FINDINGS: SUPPORT DEVICES: Right IJ dialysis catheter has its tip over the distal superior vena cava. HEART / MEDIASTINUM: Mild cardiomegaly status post previous median sternotomy. LUNGS / PLEURA: No significant pulmonary or pleural abnormality. No pneumothorax. ADDITIONAL FINDINGS: No significant additional findings. IMPRESSION: No acute abnormality. Signer Name: Ad Guerrero MD Signed: 01/28/2022 4:38 PM Workstation Name: [id number]
[2022-01-29] MEDS: hydrALAZINE 25 MG TAB PO SCH ×3 (05:03→21:17)
[2022-01-29] MEDS ORDERED: hydrALAZINE 20 MG/1 ML INJ IV ONE ×2 (05:54→10:00)
[2022-01-29] MEDS: HEPARIN 5,000 UNIT/1 ML VIAL SUB-Q SCH ×3 (07:41→21:18)
[2022-01-29] MEDS: INSULIN LISPRO 100 UNIT/ML SUB-Q SCH ×4 (08:48→21:18)
[2022-01-29] MEDS: CITALOPRAM 20 MG TAB PO SCH (09:27)
[2022-01-29] MEDS: carvediloL 25 MG TAB PO SCH ×2 (09:28→17:02)
[2022-01-29] MEDS: SPIRONOLACTONE 50 MG TAB PO SCH (09:28)
[2022-01-29] MEDS: NIFEdipine XL 90 MG TAB PO SCH (09:28)
--- NOTE | 2022-01-29 09:55 | Progress Note ---
Assessment and Plan Assessment and plan: 51-year-old male with known history of hypertension, CVA, insulin-dependent diabetes mellitus and end-stage renal disease who presents to the emergency room requesting for dialysis. Patient stated he had not had dialysis for the past 8 days [employer]. The patient was having dialysis at [place] and eventually came to [place] for dialysis. Patient has not been able to get established at the dialysis facility. Work-up in the emergency room today significant findings were that of hyperkalemia of 5.8. BUN of 99 creatinine of 9.2. Patient received insulin and glucose, sodium bicarb and Kayexalate in the emergency room for the hyperkalemia. ESRD; hemodialysis Nephrology following HD per schedule Outpatient HD chair placement Diabetes mellitus type 2 Accu-Chek sliding scale coverage ADA diet Hyperkalemia; Resolved post dialysis Accelerated hypertension Resume home antihypertensives As needed hydralazine DVT prophylaxis Subcu heparin renal dose DC planning. Per case management, outpatient HD placement Closely monitor the patient and adjust management as needed Plan of care reviewed with the patient and his nurse 01/26/2022. Patient to continue with hemodialysis per nephrology recommendations. Case management consultation to arrange for outpatient hemodialysis. Follow-up BMP 01/27/2022. Patient to continue with hemodialysis per nephrology recommendations. Await case management follow-up with regards to outpatient hemodialysis 01/28/2022. Continue hemodialysis per nephrology recommendations. I discussed with nephrology the need for arrangements around outpatient hemodialysis. Await case management follow-up 01/29/2022; awaiting outpatient HD placement, nephrology recommendations noted and appreciated Possible discharge in 1 to 2 days if stable History Interval history: I have seen and examined the patient at the bedside Patient's chart and medications reviewed End-stage renal disease on hemodialysis Awaiting outpatient HD placement Patient has no new complaints except for general weakness Vital signs noted Hospitalist Physical - Constitutional Vitals: Temp Pulse Resp BP Pulse Ox 96.5 F L 72 16 161/85 100 01/29/22 08:51 01/29/22 08:51 01/29/22 08:51 01/29/22 09:26 01/29/22 08:51 General appearance: Present: no acute distress, well-nourished - EENT Eyes: Present: PERRL, EOM intact - Neck Neck: Present: supple, normal ROM - Respiratory Respiratory effort: normal Respiratory: bilateral: diminished, negative: rales, rhonchi, wheezing - Cardiovascular Rhythm: regular Heart Sounds: Present: S1 & S2 - Extremities Extremities: no ischemia, No edema - Abdominal General gastrointestinal: soft, non-tender, non-distended, normal bowel sounds - Integumentary Integumentary: Present: clear, warm - Psychiatric Psychiatric: appropriate mood/affect, cooperative - Neurologic Neurologic: CNII-XII intact, moves all extremities Results - Labs CBC & Chem 7: 01/27/22 05:02 01/27/22 05:02 Labs: Laboratory Last Values WBC 8.7 K/mm3 (4.5-11.0) 01/27/22 05:02 RBC 3.42 M/mm3 (3.65-5.03) L 01/27/22 05:02 Hgb 8.8 gm/dl (11.8-15.2) L 01/27/22 05:02 Hct 27.6 % (35.5-45.6) L 01/27/22 05:02 MCV 81 fl (84-94) L 01/27/22 05:02 MCH 26 pg (28-32) L 01/27/22 05:02 MCHC 32 % (32-34) 01/27/22 05:02 RDW 19.8 % (13.2-15.2) H 01/27/22 05:02 Plt Count 284 K/mm3 (140-440) 01/27/22 05:02 Lymph % (Auto) 14.1 % (13.4-35.0) 01/27/22 05:02 [place] % (Auto) 5.3 % (0.0-7.3) 01/27/22 05:02 Eos % (Auto) 0.9 % (0.0-4.3) 01/27/22 05:02 Baso % (Auto) 0.5 % (0.0-1.8) 01/27/22 05:02 Lymph # (Auto) 1.2 K/mm3 (1.2-5.4) 01/27/22 05:02 [place] # (Auto) 0.5 K/mm3 (0.0-0.8) 01/27/22 05:02 Eos # (Auto) 0.1 K/mm3 (0.0-0.4) 01/27/22 05:02 Baso # (Auto) 0.0 K/mm3 (0.0-0.1) 01/27/22 05:02 Seg Neutrophils % 79.2 % (40.0-70.0) H 01/27/22 05:02 Seg Neutrophils # 6.9 K/mm3 (1.8-7.7) 01/27/22 05:02 Sodium 134 mmol/L (137-145) L 01/27/22 05:02 Potassium 3.7 mmol/L (3.6-5.0) 01/27/22 05:02 Chloride 96.1 mmol/L (98-107) L 01/27/22 05:02 Carbon Dioxide 23 mmol/L (22-30) 01/27/22 05:02 Anion Gap 19 mmol/L 01/27/22 05:02 BUN 45 mg/dL (9-20) H 01/27/22 05:02 Creatinine 5.3 mg/dL (0.8-1.3) H 01/27/22 05:02 Estimated GFR 14 ml/min 01/27/22 05:02 BUN/Creatinine Ratio 8 % 01/27/22 05:02 Glucose 229 mg/dL (75-100) H 01/27/22 05:02 POC Glucose 232 mg/dL (70-105) H 01/28/22 20:43 Calcium 8.2 mg/dL (8.4-10.2) L 01/27/22 05:02 SARS-CoV-2 (PCR) Negative (Negative) 01/28/22 13:59 Hepatitis A IgM Ab Non-reactive (NonReactive) 01/26/22 14:22 Hep Bs Antigen Non-reactive (Negative) 01/26/22 14:22 Hep B Core IgM Ab Non-reactive (NonReactive) 01/26/22 14:22 Hepatitis C Antibody Non-reactive (NonReactive) 01/26/22 14:22 He/IV: Voiding Method Urinal Active Medications - Current Medications Current Medications: Generic Name Dose Route Start Last Admin Trade Name Freq PRN Reason Stop Dose Admin Acetaminophen 650 mg 01/25/22 23:17 01/28/22 23:40 Acetaminophen 325 Mg Tab PO 650 mg Q4H PRN Administration Pain MILD(1-3)/Fever >100.5/CLARK Carvedilol 25 mg 03/19/22 22:00 01/29/22 09:28 Carvedilol 25 Mg Tab PO 25 mg BID@0800,1700 [facility] Administration Citalopram Hydrobromide 40 mg 01/26/22 22:00 01/29/22 09:27 Citalopram 20 Mg Tab PO 40 mg QDAY KRISTINA Administration Clonidine HCl 0.1 mg 01/26/22 17:44 01/26/22 18:45 Clonidine 0.1 Mg Tab PO 0.1 mg EVELINA PRN Administration Hypertension Dextrose 0 ml 01/25/22 23:25 Dextrose 10% *Hypoglycemia IV DIRECT PRN Hypoglycemia Protocol Epoetin Jb-epbx 10,000 unit 01/26/22 00:07 01/28/22 12:15 Epoetin Jb-Epbx 10,000 Unit/1 Ml Vial SUB-Q 10,000 unit EVELINA PRN Administration hemodialysis Heparin Sodium (Porcine) 5,000 unit 01/26/22 06:00 01/29/22 07:41 Heparin 5,000 Unit/1 Ml Vial SUB-Q Not Given Q8HR [facility] Heparin Sodium (Porcine) 3,000 unit 01/26/22 00:07 Heparin 10,000 Units/10 Ml Vial IV EVELINA PRN hemodialysis Hydralazine HCl 50 mg 01/26/22 22:00 01/29/22 05:03 Hydralazine 25 Mg Tab PO 50 mg Q8HR KRISTINA Administration Hydralazine HCl 10 mg 01/29/22 10:00 01/29/22 09:26 Hydralazine 20 Mg/1 Ml Inj IV 01/29/22 10:01 10 mg ONCE ONE Administration Sodium Chloride 100 mls @ 999 mls/hr 01/26/22 17:44 Nacl 0.9% IV EVELINA PRN Hypotension Insulin Human Lispro 0 unit 01/26/22 07:30 01/29/22 08:48 Insulin Lispro 100 Unit/Ml SUB-Q Not Given ACHS [facility] Protocol Isosorbide Mononitrate 120 mg 01/26/22 22:00 01/29/22 09:28 Isosorbide Mononitrate Er 60 Mg Tab PO Not Given QDAY KRISTINA Magnesium Hydroxide 30 ml 01/25/22 23:17 Magnesium Hydroxide (Mom) Oral Liqd Udc PO Q4H PRN Constipation Morphine Sulfate 2 mg 01/25/22 23:17 Morphine 2 Mg/1 Ml Inj IV Q4H PRN Pain, Moderate (4-6) Morphine Sulfate 4 mg 01/25/22 23:17 Morphine 4 Mg/1 Ml Inj IV Q4H PRN Pain , Severe (7-10) Nifedipine 90 mg 01/26/22 19:00 01/29/22 09:28 Nifedipine Xl 90 Mg Tab PO Not Given QDAY [facility] Ondansetron HCl 4 mg 01/25/22 23:17 Ondansetron 4 Mg/2 Ml Inj IV Q8H PRN Nausea And Vomiting Sodium Chloride 10 ml 01/26/22 10:00 01/29/22 09:28 Sodium Chloride 0.9% 10 Ml Flush Syringe IV 10 ml BID KRISTINA Administration Sodium Chloride 10 ml 01/25/22 23:17 Sodium Chloride 0.9% 10 Ml Flush Syringe IV PRN PRN LINE FLUSH Spironolactone 100 mg 01/26/22 22:00 01/29/22 09:28 Spironolactone 50 Mg Tab PO Not Given QDAY [facility] Nutrition/Malnutrition Assess - Dietary Evaluation Nutrition/Malnutrition Findings: Nutrition Notes Start: 01/27/22 14:53 Freq: Status: Active Protocol: Document 01/27/22 14:53 RS (Rec: 01/27/22 15:06 RS [id number]) Nutrition Notes Need for Assessment generated from: MD Order Initial or Follow up Assessment Current Diagnosis CKD (stage V CKD),Diabetes, Hypertension Other Pertinent Diagnosis CVA Current Diet Cardiac/Consistent CHO diet Labs/Tests Na:134 Cl: 96.1 BUN:45 Cr: 5.3 GLU:229 Ca: 8.2 Pertinent Medications reviewed Subjective/Other Information MD Consult for diet education. Pt does not have outpatient HD facility and must dialyze in hospital. RD provided education on renal diet. RD reviewed importance of HBV protein in relation to medical condition. RD reviewed high/ low potassium foods. RD reviewed sodium/fluid restrictions 2g/1L restriction . RD reviewed foods high in dietary PO4 and advised pt to avoid/limit high PO4 foods. Pt reports good appetite, eating well, and consumes meals BID. No GI or digestive concerns noted. Will sign off. #1 Nutrition Diagnosis Food and nutrition-related knowledge deficit Etiology ESRD renal diet As Evidenced by Signs and Symptoms pt verbalizing not having dialysis diet education before and pt does not belong to an outpatient HD clinic Diagnosis Progress(for reassessment Resolved documentation) Nutrition Intervention Learning Readiness Good Teaching Methods Discussion Anticipated Discharge Needs: Renal diet Revisit per MD consult or patient Sign Off request:
--- NOTE | 2022-01-29 11:40 | Progress Note ---
Assessment and Plan 1. ESRD: Patient is on maintenance hemodialysis. Currently not established with any outpatient HD unit. Meds dosage based on GFR. Hemodialysis: 01/26, 01/28. 2. FEN: Hyperkalemia, improved, on HD,monitor. Monitor lytes and volume status. 3. Uncontrolled HTN: Volume control thru HD. Continue home meds. Monitor BP, better now. Advised to limit salt and fluid intake. 4. DM-2: Monitor. 5. Anemia, POA: 2/2 ESRD. Epogen with HD as needed. Need outpatient HD chair. Subjective: Patient was seen and examined at the bedside. Doing ok. General Appearance: General appearance: well-developed, thin built, appears stated age, no distress EENT: ATNC, SAM, hearing intact, vision intact Neck: neck supple, trachea midline Respiratory: ctab Heart: regular, S1S2, no murmur Abdomen: soft, NT, BS heard Integumentary: no rash, warm and dry Neurologic: alert, no focal deficit, no asterixis Ext: no edema noted Hemodialysis access: R IJ tunnel catheter Subjective Date of service: 01/29/22 Objective - Vital Signs Vital signs: Vital Signs - 12hr 01/29/22 01/29/22 01/29/22 02:00 03:10 05:03 Temperature 98.5 F Pulse Rate 78 70 Pulse Rate [ Radial] Respiratory 16 Rate Blood Pressure 169/105 161/110 O2 Sat by Pulse 99 Oximetry 01/29/22 01/29/22 01/29/22 08:51 09:26 10:00 Temperature 96.5 F L Pulse Rate 72 Pulse Rate [ 70 Radial] Respiratory 16 18 Rate Blood Pressure 161/85 161/85 O2 Sat by Pulse 100 95 Oximetry - Lab 01/27/22 05:02 01/27/22 05:02 Most recent lab results Calcium 8.2 mg/dL (8.4-10.2) L 01/27/22 05:02 Medications & Allergies - Medications Allergies/Adverse Reactions: Allergies No Known Allergies Allergy (Verified 01/25/22 20:57) Home Medications: Home Medications Medication Instructions Recorded Confirmed Last Taken Type Citalopram [Celexa] 40 mg PO DAILY #30 01/27/22 Unknown Rx ISOSORBIDE MONOnitrate [Imdur ER] 129 mg PO DAILY #30 01/27/22 Unknown Rx NIFEdipine XL [Procardia Xl] 90 mg PO QDAY #30 tablet 01/27/22 Unknown Rx Spironolactone [Aldactone] 100 mg PO QDAY #30 01/27/22 Unknown Rx carvediloL [Coreg] 25 mg PO BID #60 01/27/22 Unknown Rx hydrALAZINE [Apresoline TAB] 50 mg PO Q8HR #90 01/27/22 Unknown Rx Active Medications: Generic Name Dose Route Start Last Admin Trade Name Freq PRN Reason Stop Dose Admin Acetaminophen 650 mg 01/25/22 23:17 01/28/22 23:40 Acetaminophen 325 Mg Tab PO 650 mg Q4H PRN Administration Pain MILD(1-3)/Fever >100.5/CLARK Carvedilol 25 mg 01/26/22 22:00 01/29/22 09:28 Carvedilol 25 Mg Tab PO 25 mg BID@0800,1700 KRISTINA Administration Citalopram Hydrobromide 40 mg 01/26/22 22:00 01/29/22 09:27 Citalopram 20 Mg Tab PO 40 mg QDAY KRISTINA Administration Clonidine HCl 0.1 mg 01/26/22 17:44 01/26/22 18:45 Clonidine 0.1 Mg Tab PO 0.1 mg EVELINA PRN Administration Hypertension Dextrose 0 ml 01/25/22 23:25 Dextrose 10% *Hypoglycemia IV DIRECT PRN Hypoglycemia Protocol Epoetin Jb-epbx 10,000 unit 01/26/22 00:07 01/28/22 12:15 Epoetin Jb-Epbx 10,000 Unit/1 Ml Vial SUB-Q 10,000 unit EVELINA PRN Administration hemodialysis Heparin Sodium (Porcine) 5,000 unit 01/26/22 06:00 01/29/22 07:41 Heparin 5,000 Unit/1 Ml Vial SUB-Q Not Given Q8HR KRISTINA Heparin Sodium (Porcine) 3,000 unit 01/26/22 00:07 Heparin 10,000 Units/10 Ml Vial IV EVELINA PRN hemodialysis Hydralazine HCl 50 mg 01/26/22 22:00 01/29/22 05:03 Hydralazine 25 Mg Tab PO 50 mg Q8HR KRISTINA Administration Sodium Chloride 100 mls @ 999 mls/hr 01/26/22 17:44 Nacl 0.9% IV EVELINA PRN Hypotension Insulin Human Lispro 0 unit 01/26/22 07:30 01/29/22 08:48 Insulin Lispro 100 Unit/Ml SUB-Q Not Given [facility] Protocol Isosorbide Mononitrate 120 mg 01/26/22 22:00 01/29/22 09:28 Isosorbide Mononitrate Er 60 Mg Tab PO Not Given QDAY [facility] Magnesium Hydroxide 30 ml 01/25/22 23:17 Magnesium Hydroxide (Mom) Oral Liqd Udc PO Q4H PRN Constipation Morphine Sulfate 2 mg 01/25/22 23:17 Morphine 2 Mg/1 Ml Inj IV Q4H PRN Pain, Moderate (4-6) Morphine Sulfate 4 mg 01/25/22 23:17 Morphine 4 Mg/1 Ml Inj IV Q4H PRN Pain , Severe (7-10) Nifedipine 90 mg 01/26/22 19:00 01/29/22 09:28 Nifedipine Xl 90 Mg Tab PO Not Given QDAY [facility] Ondansetron HCl 4 mg 01/25/22 23:17 Ondansetron 4 Mg/2 Ml Inj IV Q8H PRN Nausea And Vomiting Sodium Chloride 10 ml 01/26/22 10:00 01/29/22 09:28 Sodium Chloride 0.9% 10 Ml Flush Syringe IV 10 ml BID KRISTINA Administration Sodium Chloride 10 ml 01/25/22 23:17 Sodium Chloride 0.9% 10 Ml Flush Syringe IV PRN PRN LINE FLUSH Spironolactone 100 mg 01/26/22 22:00 01/29/22 09:28 Spironolactone 50 Mg Tab PO Not Given QDAY [facility]
[2022-01-30] MEDS ORDERED: hydrALAZINE 20 MG/1 ML INJ IV PRN (06:00)
[2022-01-30] MEDS: hydrALAZINE 25 MG TAB PO SCH ×2 (06:46→16:22)
[2022-01-30] MEDS: HEPARIN 5,000 UNIT/1 ML VIAL SUB-Q SCH ×2 (06:49→16:22)
[2022-01-30] MEDS: INSULIN LISPRO 100 UNIT/ML SUB-Q SCH ×3 (08:35→18:51)
[2022-01-30] MEDS: carvediloL 25 MG TAB PO SCH ×2 (11:00→18:51)
[2022-01-30] MEDS: EPOETIN ALFA-EPBX 10,000 UNIT/1 ML VIAL SUB-Q PRN (12:58)
--- NOTE | 2022-01-30 13:39 | Progress Note ---
Assessment and Plan 1. ESRD: Patient is on maintenance hemodialysis. Currently not established with any outpatient HD unit. Meds dosage based on GFR. Hemodialysis: 01/26, 01/28, 01/30. 2. FEN: Hyperkalemia, improved, on HD,monitor. Monitor lytes and volume status. 3. Uncontrolled HTN: Volume control thru HD. Continue home meds. Monitor BP, better now. Advised to limit salt and fluid intake. 4. DM-2: Monitor. 5. Anemia, POA: 2/2 ESRD. Epogen with HD as needed. Outpatient HD chair at [facility]. Subjective: Patient was seen and examined at the bedside. Doing ok. General Appearance: General appearance: well-developed, thin built, appears stated age, no distress EENT: ATNC, SAM, hearing intact, vision intact Neck: neck supple, trachea midline Respiratory: ctab Heart: regular, S1S2, no murmur Abdomen: soft, NT, BS heard Integumentary: no rash, warm and dry Neurologic: alert, no focal deficit, no asterixis Ext: no edema noted Hemodialysis access: R IJ tunnel catheter Subjective Date of service: 01/30/22 Objective - Vital Signs Vital signs: Vital Signs - 12hr 01/30/22 01/30/22 01/30/22 03:39 04:31 06:46 Temperature 98.6 F Pulse Rate 66 66 69 Respiratory 18 Rate Blood Pressure 184/107 184/107 172/101 O2 Sat by Pulse 95 Oximetry O2 Sat by Pulse Oximetry [ Bilateral Throughout] 01/30/22 01/30/22 01/30/22 08:35 09:50 10:00 Temperature 98.1 F 98.2 F Pulse Rate 68 70 67 Respiratory 18 18 Rate Blood Pressure 166/97 170/87 170/83 O2 Sat by Pulse 97 Oximetry O2 Sat by Pulse 100 Oximetry [ Bilateral Throughout] 01/30/22 01/30/22 01/30/22 10:15 10:30 10:45 Temperature Pulse Rate 98 H 68 69 Respiratory Rate Blood Pressure 164/97 156/91 155/86 O2 Sat by Pulse Oximetry O2 Sat by Pulse Oximetry [ Bilateral Throughout] 01/30/22 01/30/22 01/30/22 11:00 11:15 11:30 Temperature Pulse Rate 70 740 H 70 Respiratory Rate Blood Pressure 160/93 162/98 168/91 O2 Sat by Pulse Oximetry O2 Sat by Pulse Oximetry [ Bilateral Throughout] 01/30/22 01/30/22 01/30/22 11:45 12:00 12:15 Temperature Pulse Rate 68 69 68 Respiratory Rate Blood Pressure 161/96 168/103 177/105 O2 Sat by Pulse Oximetry O2 Sat by Pulse Oximetry [ Bilateral Throughout] 01/30/22 12:30 Temperature Pulse Rate 69 Respiratory Rate Blood Pressure 177/108 O2 Sat by Pulse Oximetry O2 Sat by Pulse Oximetry [ Bilateral Throughout] - Lab 01/27/22 05:02 01/27/22 05:02 Most recent lab results Calcium 8.2 mg/dL (8.4-10.2) L 01/27/22 05:02 Medications & Allergies - Medications Allergies/Adverse Reactions: Allergies No Known Allergies Allergy (Verified 01/25/22 20:57) Home Medications: Home Medications Medication Instructions Recorded Confirmed Last Taken Type Citalopram [Celexa] 40 mg PO DAILY #30 01/27/22 Unknown Rx ISOSORBIDE MONOnitrate [Imdur ER] 129 mg PO DAILY #30 01/27/22 Unknown Rx NIFEdipine XL [Procardia Xl] 90 mg PO QDAY #30 tablet 01/27/22 Unknown Rx Spironolactone [Aldactone] 100 mg PO QDAY #30 01/27/22 Unknown Rx carvediloL [Coreg] 25 mg PO BID #60 01/27/22 Unknown Rx hydrALAZINE [Apresoline TAB] 50 mg PO Q8HR #90 01/27/22 Unknown Rx Active Medications: Generic Name Dose Route Start Last Admin Trade Name Sandra PRN Reason Stop Dose Admin Acetaminophen 650 mg 01/25/22 23:17 01/28/22 23:40 Acetaminophen 325 Mg Tab PO 650 mg Q4H PRN Administration Pain MILD(1-3)/Fever >100.5/CLARK Carvedilol 25 mg 01/26/22 22:00 01/30/22 11:00 Carvedilol 25 Mg Tab PO 25 mg BID@0800,1700 KRISTINA Administration Citalopram Hydrobromide 40 mg 01/26/22 22:00 01/29/22 09:27 Citalopram 20 Mg Tab PO 40 mg QDAY KRISTINA Administration Clonidine HCl 0.1 mg 01/26/22 17:44 01/26/22 18:45 Clonidine 0.1 Mg Tab PO 0.1 mg EVELINA PRN Administration Hypertension Dextrose 0 ml 01/25/22 23:25 Dextrose 10% *Hypoglycemia IV DIRECT PRN Hypoglycemia Protocol Epoetin Jb-epbx 10,000 unit 01/26/22 00:07 01/30/22 12:58 Epoetin Jb-Epbx 10,000 Unit/1 Ml Vial SUB-Q 10,000 unit EVELINA PRN Administration hemodialysis Heparin Sodium (Porcine) 5,000 unit 01/26/22 06:00 01/30/22 06:49 Heparin 5,000 Unit/1 Ml Vial SUB-Q Not Given Q8HR KRISTINA Heparin Sodium (Porcine) 3,000 unit 01/26/22 00:07 Heparin 10,000 Units/10 Ml Vial IV EVELINA PRN hemodialysis Hydralazine HCl 50 mg 01/26/22 22:00 01/30/22 06:46 Hydralazine 25 Mg Tab PO 50 mg Q8HR KRISTINA Administration Hydralazine HCl 10 mg 01/30/22 06:00 01/30/22 04:31 Hydralazine 20 Mg/1 Ml Inj IV 10 mg Q6H PRN Administration Hypertension Sodium Chloride 100 mls @ 999 mls/hr 01/26/22 17:44 Nacl 0.9% IV EVELINA PRN Hypotension Insulin Human Lispro 0 unit 01/26/22 07:30 01/30/22 08:35 Insulin Lispro 100 Unit/Ml SUB-Q 2 unit ACHS KRISTINA Administration Protocol Isosorbide Mononitrate 120 mg 01/26/22 22:00 01/30/22 11:30 Isosorbide Mononitrate Er 60 Mg Tab PO 120 mg QDAY KRISTINA Administration Magnesium Hydroxide 30 ml 01/25/22 23:17 Magnesium Hydroxide (Mom) Oral Liqd Udc PO Q4H PRN Constipation Morphine Sulfate 2 mg 01/25/22 23:17 Morphine 2 Mg/1 Ml Inj IV Q4H PRN Pain, Moderate (4-6) Morphine Sulfate 4 mg 01/25/22 23:17 Morphine 4 Mg/1 Ml Inj IV Q4H PRN Pain , Severe (7-10) Nifedipine 90 mg 01/26/22 19:00 01/29/22 09:28 Nifedipine Xl 90 Mg Tab PO Not Given QDAY [facility] Ondansetron HCl 4 mg 01/25/22 23:17 Ondansetron 4 Mg/2 Ml Inj IV Q8H PRN Nausea And Vomiting Sodium Chloride 10 ml 01/26/22 10:00 01/29/22 21:19 Sodium Chloride 0.9% 10 Ml Flush Syringe IV 10 ml BID KRISTINA Administration Sodium Chloride 10 ml 01/25/22 23:17 Sodium Chloride 0.9% 10 Ml Flush Syringe IV PRN PRN LINE FLUSH Spironolactone 100 mg 01/26/22 22:00 01/29/22 09:28 Spironolactone 50 Mg Tab PO Not Given QDAY KRISTINA
--- NOTE | 2022-01-30 14:19 | Discharge Summary ---
Providers - Providers Date of Admission: 01/25/22 23:17 Date of discharge: 01/30/22 Attending physician: DEVIKA PHILIP 01/25/22 22:05 Consult to Physician [CONS] Stat Comment: Consulting Provider: MARCELINA HANSEN Physician Instructions: Reason For Exam: ESRD on HD 01/25/22 23:17 Consult to Dietitian/Nutrition [CONS] Routine Physician Instructions: Reason For Exam: Reason for Consult: Diet education [facility] Condition: Stable Hospital course: 51-year-old -[place] male patient with significant past medical history of Hypertension, DM, CVA, Anemia and ESRD on HD who presented to [facility] ED 01/26 for hemodialysis. Patient stated that he recently moved from [place]. He was started on hemodialysis about a month ago and was last dialyzed on 01/18. He denied any complaints at this time. Work-up in the ED; K 5.8, BUN 99, Bicarb 18 and Creatinine 9.2. Patient received meds for hyperkalemia. Nephrology consulted for ESRD management. The patient received hemodialysis with stabilization of potassium and volume status. Patient received hemodialysis per schedule, nephrology recommended long-term hemodialysis, case management has evaluated and set up outpatient HD chair scheduling. Patient is scheduled for Friday, the first outpatient dialysis will be on 02/01/2022. Details were given to the patient. Today patient received his routine hemodialysis tolerated the procedure well Feels better no new complaints Vital signs reviewed stable Physical examination prior to discharge did not show any new changes Patient is hemodynamically and clinically stable at discharge Pain outpatient hemodialysis scheduled for Friday, next dialysis 02/01/2022 Disposition: 30 STILL A PATIENT Core Measure Documentation - Palliative Care Palliative Care/ Comfort Measures: Not Applicable Exam - Constitutional Vitals: Temp Pulse Resp BP Pulse Ox 98.2 F 69 18 177/108 100 01/30/22 09:50 01/30/22 12:30 01/30/22 09:50 01/30/22 12:30 01/30/22 09:50 Plan Additional Instructions: Hemodialysis every Friday,Friday,Friday at 2:30pm,. 1st treatment is set for Friday at 2:15pm. DCP gave copy for patient, and copy for patients chart. Patient will need to bring ID,insurance cards. will continue to follow. If you have worsening symptoms contact MD or go to the nearest emergency room. Strongly advised to comply with medications, diet, follow-up visits, hemodialysis per schedule. Advised to see primary care physician within 5 to 7 days. Advised to see junior project manager per schedule Follow up with: CHAVO HERNANDEZ MD [Primary Care Provider] - 3-5 Days SHARMILA COLEMAN MD [Staff Physician] - 7 Days Prescriptions: Spironolactone [Aldactone] 100 mg PO QDAY #30 hydrALAZINE [Apresoline TAB] 50 mg PO Q8HR #90 Citalopram [Celexa] 40 mg PO DAILY #30 carvediloL [Coreg] 25 mg PO BID #60 ISOSORBIDE MONOnitrate [Imdur ER] 129 mg PO DAILY #30 NIFEdipine XL [Procardia Xl] 90 mg PO QDAY #30 tablet
[2022-01-30] MEDS: CITALOPRAM 20 MG TAB PO SCH (16:21)
[2022-01-30] MEDS: NIFEdipine XL 90 MG TAB PO SCH (16:22)
[2022-01-30] MEDS: SPIRONOLACTONE 50 MG TAB PO SCH (16:22)
[2022-01-30 17:39] VITALS: BP 156/96
== END 2022-01-30 19:15 | disposition home or self-care (01) | DRG 640 ==
LOC: ED 17:36 → 4A 23:17
PROVIDERS: ADMIT Internal Medicine Geriatric Medicine; ATTEND Internal Medicine
PROC: 5A1D70Z Performance of Urinary Filtration, Intermittent, Less than 6 Hours Per Day (ICD-10-PCS; principal; 2022-01-26)
PROC: 5A1D70Z Performance of Urinary Filtration, Intermittent, Less than 6 Hours Per Day (ICD-10-PCS; 2022-01-28)
PROC: 5A1D70Z Performance of Urinary Filtration, Intermittent, Less than 6 Hours Per Day (ICD-10-PCS; 2022-01-30)
DX: E87.5 Hyperkalemia (principal); N18.6 End stage renal disease; I16.0 Hypertensive urgency; I12.0 Hypertensive chronic kidney disease with stage 5 chronic kidney disease or end stage renal disease; D63.1 Anemia in chronic kidney disease; E11.319 Type 2 diabetes mellitus with unspecified diabetic retinopathy without macular edema; E11.22 Type 2 diabetes mellitus with diabetic chronic kidney disease; Z20.822 Contact with and (suspected) exposure to COVID-19; Z99.2 Dependence on renal dialysis; Z86.73 Personal history of transient ischemic attack (TIA), and cerebral infarction without residual deficits; Z82.49 Family history of ischemic heart disease and other diseases of the circulatory system; Z84.1 Family history of disorders of kidney and ureter
CPT/HCPCS: 36415; 71045; 80048; 80074; 82962; 85025; 93005; 94644; G0378; J3490; Q9967; J0360; J0610; J0885; J1644; J1815; U0003

== ENCOUNTER 2022-02-01 10:37 | Emergency (ER) | payer MEDICAID ==
[2022-02-01 11:14] VITALS: BP 191/115
--- NOTE | 2022-02-01 11:16 | Event Note ---
ED Screening Note ED Screening Note: HAS NO HD CLINIC HERE FOR HD LAST HD WED This initial assessment/diagnostic orders/clinical plan/treatment(s) is/are subject to change based on patients health status, clinical progression and re- assessment by fellow clinical providers in the ED. Further treatment and workup at subsequent clinical providers discretion. Patient/guardian urged not to elope from the ED as their condition may be serious if not clinically assessed and managed. Initial orders include: LABS/EKG
[2022-02-01 12:06] LABS: Calcium 9.4 mg/dL (8.4-10.2)
[2022-02-01 13:50] LABS: Hemoglobin 9.7 gm/dl (11.8-15.2); Mean Corpuscular HGB Conc 31 % (32-34); Mean Corpuscular Volume 82 fl (84-94); Platelet Count 352 K/mm3 (140-440); Red Blood Count 3.76 M/mm3 (3.65-5.03); Red Cell Distribution Width 20.9 % (13.2-15.2)
--- NOTE | 2022-02-05 09:02 | Electrocardiograph Report ---
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
== END 2022-02-03 04:53 | disposition left against medical advice (07) ==
LOC: ED 10:37
DX: Z00.00 Encounter for general adult medical examination without abnormal findings (principal); Z53.21 Procedure and treatment not carried out due to patient leaving prior to being seen by health care provider
CPT/HCPCS: 36415; 80048; 83735; 83880; 84100; 85027; 93005

== ENCOUNTER 2022-05-29 12:04 | Inpatient (IN) | payer MEDICAID ==
--- NOTE | 2022-05-29 14:27 | Emergency Department Report ---
<EDILMA ORTIZ - Last Filed: 05/29/22 14:24> - General Chief complaint: Weakness Stated complaint: GENERAL WEAKNESS Time Seen by Provider: 05/29/22 14:22 Source: patient, EMS Mode of arrival: Stretcher Limitations: No Limitations - History of Present Illness Initial comments: 51-year-old with end-stage renal disease currently on dialysis Friday and Friday who reports that he has not had dialysis since last week about 6 days ago. Patient is presenting with generalized weakness and muscle discomfort. Patient also reported some shortness of breath but no chest pain. No other modifying or associated factors reported. MD Complaint: generalized weakness - Related Data Home Medications Medication Instructions Recorded Confirmed Last Taken AtorvaSTATin [Lipitor] 40 mg PO QHS 05/11/22 05/11/22 Unknown Bumetanide [Bumex 1 mg tab] 1 mg PO BID 05/11/22 05/11/22 Unknown Insulin Glargine,Hum.rec.anlog 10 unit SQ QAM 05/11/22 05/11/22 Unknown [Lantus Solostar] Previous Rx's Medication Instructions Recorded Last Taken Type Citalopram [Celexa] 40 mg PO DAILY #30 01/27/22 Unknown Rx Insulin Glargine,Hum.rec.anlog 20 unit SQ QAM 30 Days #1 box 05/12/22 Unknown Rx [Lantus Solostar] Insulin Regular, Human [Novolin R 5 unit SQ AC 30 Days #1 box 05/12/22 Unknown Rx Flexpen] Isosorbide Mononitrate [Isosorbide 120 mg PO DAILY 30 Days #30 tab 05/12/22 Unknown Rx Mononitrate ER] NIFEdipine XL [Procardia Xl] 90 mg PO QDAY 30 Days #30 tablet 05/12/22 Unknown Rx Spironolactone [Aldactone] 100 mg PO QDAY 30 Days #30 tab 05/12/22 Unknown Rx carvediloL [Coreg] 25 mg PO BID 30 Days #60 tab 05/12/22 Unknown Rx hydrALAZINE [Apresoline TAB] 50 mg PO Q8HR 30 Days #90 tab 05/12/22 Unknown Rx Allergies Allergy/AdvReac Type Severity Reaction Status Date / Time No Known Allergies Allergy Verified 02/01/22 11:04 ED Review of Systems Comment: All other systems reviewed and negative Respiratory: shortness of breath Cardiovascular: dyspnea on exertion. denies: chest pain, palpitations ED Past Medical Hx - Past Medical History Hx Hypertension: Yes Hx CVA: Yes Hx Congestive Heart Failure: Yes Hx Diabetes: Yes Hx Renal Disease: Yes (End-stage renal disease on hemodialysis) Hx Asthma: No Hx COPD: No - Surgical History Additional Surgical History: Open heart surgery for aortic repair, laser surgery for diabetic retinopathy - Social History Smoking Status: Never Smoker - Medications Home Medications: Home Medications Medication Instructions Recorded Confirmed Last Taken Type Citalopram [Celexa] 40 mg PO DAILY #30 01/27/22 05/11/22 Unknown Rx AtorvaSTATin [Lipitor] 40 mg PO QHS 05/11/22 05/11/22 Unknown History Bumetanide [Bumex 1 mg tab] 1 mg PO BID 05/11/22 05/11/22 Unknown History Insulin Glargine,Hum.rec.anlog 10 unit SQ QAM 05/11/22 05/11/22 Unknown History [Lantus Solostar] Insulin Glargine,Hum.rec.anlog 20 unit SQ QAM 30 Days #1 box 05/12/22 Unknown Rx [Lantus Solostar] Insulin Regular, Human [Novolin R 5 unit SQ AC 30 Days #1 box 05/12/22 Unknown Rx Flexpen] Isosorbide Mononitrate [Isosorbide 120 mg PO DAILY 30 Days #30 tab 05/12/22 Unknown Rx Mononitrate ER] NIFEdipine XL [Procardia Xl] 90 mg PO QDAY 30 Days #30 tablet 05/12/22 Unknown Rx Spironolactone [Aldactone] 100 mg PO QDAY 30 Days #30 tab 05/12/22 Unknown Rx carvediloL [Coreg] 25 mg PO BID 30 Days #60 tab 05/12/22 Unknown Rx hydrALAZINE [Apresoline TAB] 50 mg PO Q8HR 30 Days #90 tab 05/12/22 Unknown Rx ED Physical Exam - General Limitations: No Limitations General appearance: alert, in no apparent distress - Head Head exam: Present: normal inspection - Eye Eye exam: Present: normal appearance Pupils: Present: normal accommodation - ENT ENT exam: Present: normal exam, normal orophraynx, mucous membranes moist - Neck Neck exam: Present: normal inspection, full ROM. Absent: tenderness - Respiratory Respiratory exam: Present: normal lung sounds bilaterally. Absent: respiratory distress, accessory muscle use - Cardiovascular Cardiovascular Exam: Present: regular rate, normal rhythm - GI/Abdominal GI/Abdominal exam: Present: soft, normal bowel sounds. Absent: distended, tenderness - Extremities Exam Extremities exam: Present: normal inspection, normal capillary refill. Absent: full ROM, tenderness - Back Exam Back exam: Present: normal inspection - Neurological Exam Neurological exam: Present: alert, oriented X3 - Psychiatric Psychiatric exam: Present: normal affect, normal mood - Skin Skin exam: Present: warm, normal color ED Course - Reevaluation(s) Reevaluation #1: 05/29/22 14:26 Patient signed out to Dr. Saini while waiting for labs--this patient is likely going to need dialysis considering that he has a history of end-stage renal disease and has missed dialysis the last 2 section. Please follow-up on the labs for consideration for admission and dialysis. ED Medical Decision Making - Medical Decision Making Here with generalized muscle weakness and discomfort likely as a result of missing dialysis--we will go ahead and check routine labs including CBC, CMP, UA for any infectious process or electrolyte abnormality. ED Disposition Clinical Impression: ESRD needing dialysis Disposition: 01 HOME / SELF CARE / HOMELESS Does the pt Need Aspirin: No Condition: Stable Referrals: PRIMARY CARE, [Primary Care Provider] - 3-5 Days <NAINA SAINI - Last Filed: 05/29/22 18:47> ED Review of Systems ROS: Stated complaint: GENERAL WEAKNESS Other details as noted in HPI ED Course Vital Signs 05/29/22 12:27 Temperature 98 F Pulse Rate 63 Respiratory 18 Rate Blood Pressure 200/121 [Left] O2 Sat by Pulse 100 Oximetry ED Medical Decision Making - Lab Data Result diagrams: 05/29/22 17:24 05/29/22 17:24 - Radiology Data Radiology results: report reviewed, image reviewed - Medical Decision Making handed out from dr Rothman , labs were not back and x ray were not back , results was unremarkabl e, x ray clear vss no distress Critical care attestation.: If time is entered above; I have spent that time in minutes in the direct care of this critically ill patient, excluding procedure time. ED Disposition Is pt being admited?: No Does the pt Need Aspirin: No
--- NOTE | 2022-05-29 16:57 | XRay Report ---
CHEST 1 VIEW 05/29/2022 2:29 PM INDICATION / CLINICAL INFORMATION: weakness. COMPARISON: One view of the chest from 05/11/2022. FINDINGS: SUPPORT DEVICES: Unchanged right PermCath. HEART / MEDIASTINUM: Stable. LUNGS / PLEURA: No significant pulmonary abnormality. No significant pleural effusion. No pneumothora x. ADDITIONAL FINDINGS: No significant additional findings. IMPRESSION: 1. No acute abnormality of the chest. No significant interval changes. Signer Name: Dariusz Gómez MD Signed: 05/29/2022 4:53 PM Workstation Name: [id number]
[2022-05-29 17:53] LABS: Basophils % (Auto) 0.6 % (0.0-1.8); Eosinophils # (Auto) 0.1 K/mm3 (0.0-0.4); Eosinophils % (Auto) 2.2 % (0.0-4.3); Hematocrit 32.4 % (35.5-45.6); Hemoglobin 10.3 gm/dl (11.8-15.2); Lymphocytes # (Auto) 1.3 K/mm3 (1.2-5.4); Lymphocytes % (Auto) 26.1 % (13.4-35.0); Mean Corpuscular HGB Conc 32 % (32-34); Mean Corpuscular Volume 89 fl (84-94); Monocytes # (Auto) 0.3 K/mm3 (0.0-0.8); Monocytes % (Auto) 5.5 % (0.0-7.3); Platelet Count 137 K/mm3 (140-440); Red Blood Count 3.65 M/mm3 (3.65-5.03); Red Cell Distribution Width 15.8 % (13.2-15.2)
[2022-05-29 18:08] LABS: Albumin 4.3 g/dL (3.9-5); Calcium 8.7 mg/dL (8.4-10.2)
[2022-05-29 18:55] LABS: Bacteria,Urine 4+ /HPF (Negative)
[2022-05-29 18:57] LABS: Color,Urine Yellow (Yellow)
[2022-05-29 18:58] LABS: Bilirubin,Urine Negative (Negative); Blood,Urine Large (Negative); Protein,Urine >500 mg/dL (Negative); Urobilinogen,Urine < 2.0 mg/dL (<2.0)
[2022-05-29 19:01] LABS: WBC,Urine > 182.0 /HPF (0.0-6.0)
[2022-05-30] MEDS ORDERED: hydrALAZINE 20 MG/1 ML INJ IV ONE (05:09)
[2022-05-30] MEDS ORDERED: cefTRIAXone/NS 1 GM/50 ML 1 GM/50 ML BAG IV ONE (05:22)
--- NOTE | 2022-05-30 05:22 | Event Note ---
Date: 05/30/22 This patient was discharged by my colleague. This patient was not signed out to me. The details of his care and specifics of care were not discussed with me. The patient is brought to my attention by the nurse who is about to discharge the patient. She has reviewed his laboratory studies and vital signs, and expresses concern over the aforementioned. Patient is found to have evidence of hypertensive urgency, with azotemia, uremia, and metabolic acidosis. His forest aide is Dr. Silke Glez I am recommending admission for hemodialysis. I contacted the aforementioned forest aide, and discussed the patient's history, physical, laboratory studies and clinical impression. He is in agreement with the plan of care, and will arrange for hemodialysis. The patient is agreeable to admission for hemodialysis. Currently awaiting callback from hospital physician to arrange admission for hemodialysis. Care team is instructed to not discharge this patient to Vital Signs 05/29/22 05/30/22 12:27 05:03 Temperature 98 F Pulse Rate 63 85 Respiratory 18 14 Rate Blood Pressure 200/121 195/131 [Left] O2 Sat by Pulse 100 97 Oximetry Lab Results 05/29/22 05/29/22 05/29/22 Range/Units 17:24 17:24 18:39 WBC 4.9 (4.5-11.0) K/mm3 RBC 3.65 (3.65-5.03) M/mm3 Hgb 10.3 L (11.8-15.2) gm/dl Hct 32.4 L (35.5-45.6) % MCV 89 (84-94) fl MCH 28 (28-32) pg MCHC 32 (32-34) % RDW 15.8 H (13.2-15.2) % Plt Count 137 L (140-440) K/mm3 Lymph % (Auto) 26.1 (13.4-35.0) % [place] % (Auto) 5.5 (0.0-7.3) % Eos % (Auto) 2.2 (0.0-4.3) % Baso % (Auto) 0.6 (0.0-1.8) % Lymph # (Auto) 1.3 (1.2-5.4) K/mm3 [place] # (Auto) 0.3 (0.0-0.8) K/mm3 Eos # (Auto) 0.1 (0.0-0.4) K/mm3 Baso # (Auto) 0.0 (0.0-0.1) K/mm3 Seg Neutrophils % 65.6 (40.0-70.0) % Seg Neutrophils # 3.2 (1.8-7.7) K/mm3 Sodium 139 (137-145) mmol/L Potassium 5.3 H (3.6-5.0) mmol/L Chloride 108.3 H (98-107) mmol/L Carbon Dioxide 11 L (22-30) mmol/L Anion Gap 25 mmol/L BUN 113 H (9-20) mg/dL Creatinine 10.8 H (0.8-1.3) mg/dL Estimated GFR 6 ml/min BUN/Creatinine Ratio 10 % Glucose 233 H (75-100) mg/dL Calcium 8.7 (8.4-10.2) mg/dL Total Bilirubin 0.50 (0.1-1.2) mg/dL AST 20 (5-40) units/L ALT 19 (7-56) units/L Alkaline Phosphatase 86 (35-129) units/L Total Protein 8.2 (6.3-8.2) g/dL Albumin 4.3 (3.9-5) g/dL Albumin/Globulin Ratio 1.1 % Urine Color Yellow (Yellow) Urine Turbidity Hazy (Clear) Urine pH 6.0 (5.0-7.0) Ur Specific [place] 1.025 (1.003-1.030) Urine Protein >500 (Negative) mg/dL Urine Glucose (UA) Trace (Negative) mg/dL Urine Ketones Negative (Negative) mg/dL Urine Blood Large A (Negative) Urine Nitrite Negative (Negative) Ur Reducing Substances Not Reportable Urine Bilirubin Negative (Negative) Urine Ictotest Not Reportable Urine Urobilinogen < 2.0 (<2.0) mg/dL Ur Leukocyte Esterase Moderate (Negative) Urine WBC (Auto) > 182.0 H (0.0-6.0) /HPF Urine RBC (Auto) 115.0 (0.0-6.0) /HPF U Epithel Cells (Auto) 2.0 (0-13.0) /HPF Urine Bacteria (Auto) 4+ (Negative) /HPF Urine WBC Clumps 3+ /HPF Urine Yeast (Budding) 3+ /HPF CHEST 1 VIEW 05/29/2022 2:29 PM INDICATION / CLINICAL INFORMATION: weakness. COMPARISON: One view of the chest from 05/11/2022. FINDINGS: SUPPORT DEVICES: Unchanged right PermCath. HEART / MEDIASTINUM: Stable. LUNGS / PLEURA: No significant pulmonary abnormality. No significant pleural effusion. No pneumothorax. ADDITIONAL FINDINGS: No significant additional findings. IMPRESSION: 1. No acute abnormality of the chest. No significant interval changes. Signer Name: Dariusz Gómez MD Signed: 05/29/2022 3:53 PM Workstation Name: [id number] Dr Reggie Jorgensen to admit to [facility]
[2022-05-30] MEDS ORDERED: MORPHINE 2 MG/1 ML INJ IV PRN (05:37)
[2022-05-30] MEDS ORDERED: DEXTROSE 50% IN WATER (25GM) 50 ML SYRINGE IV PRN (05:37)
[2022-05-30] MEDS ORDERED: MAGNESIUM HYDROXIDE (MOM) ORAL LIQD UDC PO PRN (05:37)
[2022-05-30] MEDS ORDERED: ACETAMINOPHEN 325 MG TAB PO PRN (05:37)
[2022-05-30] MEDS ORDERED: MORPHINE 4 MG/1 ML INJ IV PRN (05:37)
[2022-05-30] MEDS ORDERED: ONDANSETRON 4 MG/2 ML INJ IV PRN (05:37)
[2022-05-30] MEDS ORDERED: hydrALAZINE 20 MG/1 ML INJ IV PRN (05:39)
--- NOTE | 2022-05-30 05:47 | History and Physical Report ---
History of Present Illness Date of examination: 05/30/22 Date of admission: 05/30/2022 Chief complaint: Generalized weakness Muscle cramps History of present illness: 51-year-old -[place] male with known history of end-stage renal disease on dialysisMondays, Wednesdays and Fridays, hypertension and diabetes mellitus presenting to the emergency room today complaining of generalized body weakness and muscle cramps. Patient states he has not had his dialysis in 6 days. He denies any chest pain but has had some mild shortness of breath. Denies any cough, no nausea or vomiting and no abdominal pain. Patient denies any headache or dizziness and denies any diaphoresis. Denies any hematuria or dysuria. Patient follows up with Dr. Jenningsphrologist. Blood pressure was quite elevated while in the emergency room. He was given a dose of IV hydralazine which minimal improvement. Patient states he has not had his blood pressure medications today. Work-up in the emergency room today, significant findings on the labs were that of potassium of 5.3, BUN of 139 creatinine of 10.8, glucose of 233, Urinalysis is reveals a UTI. Chest x-ray shows no acute abnormality. Patient is being admitted for dialysis, UTI and hypertensive urgency. Past History Past Medical History: diabetes, dialysis, ESRD, hypertension, stroke Past Surgical History: Other (Open heart surgery for aortic repair, laser surgery for diabetic retinopathy) Social history: no significant social history Family history: no significant family history Medications and Allergies Allergies Allergy/AdvReac Type Severity Reaction Status Date / Time No Known Allergies Allergy Verified 02/01/22 11:04 Home Medications Medication Instructions Recorded Confirmed Last Taken Type Citalopram [Celexa] 40 mg PO DAILY #30 01/27/22 05/11/22 Unknown Rx AtorvaSTATin [Lipitor] 40 mg PO QHS 05/11/22 05/11/22 Unknown History Bumetanide [Bumex 1 mg tab] 1 mg PO BID 05/11/22 05/11/22 Unknown History Insulin Glargine,Hum.rec.anlog 10 unit SQ QAM 05/11/22 05/11/22 Unknown History [Lantus Solostar] Insulin Glargine,Hum.rec.anlog 20 unit SQ QAM 30 Days #1 box 05/12/22 Unknown Rx [Lantus Solostar] Insulin Regular, Human [Novolin R 5 unit SQ AC 30 Days #1 box 05/12/22 Unknown Rx Flexpen] Isosorbide Mononitrate [Isosorbide 120 mg PO DAILY 30 Days #30 tab 05/12/22 Unknown Rx Mononitrate ER] NIFEdipine XL [Procardia Xl] 90 mg PO QDAY 30 Days #30 tablet 05/12/22 Unknown Rx Spironolactone [Aldactone] 100 mg PO QDAY 30 Days #30 tab 05/12/22 Unknown Rx carvediloL [Coreg] 25 mg PO BID 30 Days #60 tab 05/12/22 Unknown Rx hydrALAZINE [Apresoline TAB] 50 mg PO Q8HR 30 Days #90 tab 05/12/22 Unknown Rx Active Meds: Active Medications Acetaminophen (Acetaminophen 325 Mg Tab) 650 mg PO Q4H PRN PRN Reason: Pain MILD(1-3)/Fever >100.5/CLARK Dextrose (Dextrose 50% In Water (25gm) 50 Ml Syringe) 50 ml IV Q30MIN PRN; Pr otocol PRN Reason: Hypoglycemia Dextrose (Dextrose 50% In Water (25gm) 50 Ml Syringe) 50 ml IV Q30MIN PRN; Protocol PRN Reason: Hypoglycemia Heparin Sodium (Porcine) (Heparin 5,000 Unit/1 Ml Vial) 5,000 unit SUB-Q Q8HR KRISTINA Hydralazine HCl (Hydralazine 20 Mg/1 Ml Inj) 10 mg IV Q4HR PRN PRN Reason: Blood Pressure Ceftriaxone Sodium (Rocephin/Ns 1 Gm/50 Ml) 1 gm in 50 mls @ 100 mls/hr IV ONCE ONE; Protocol Stop: 05/30/22 05:51 Insulin Human Lispro (Insulin Lispro 100 Unit/Ml) 0 unit SUB-Q ACHS KRISTINA; Protocol Magnesium Hydroxide (Magnesium Hydroxide (Mom) Oral Liqd Udc) 30 ml PO Q4H PRN PRN Reason: Constipation Morphine Sulfate (Morphine 2 Mg/1 Ml Inj) 2 mg IV Q4H PRN PRN Reason: Pain, Moderate (4-6) Morphine Sulfate (Morphine 4 Mg/1 Ml Inj) 4 mg IV Q4H PRN PRN Reason: Pain , Severe (7-10) Ondansetron HCl (Ondansetron 4 Mg/2 Ml Inj) 4 mg IV Q8H PRN PRN Reason: Nausea And Vomiting Sodium Chloride (Sodium Chloride 0.9% 10 Ml Flush Syringe) 10 ml IV BID KRISTINA Sodium Chloride (Sodium Chloride 0.9% 10 Ml Flush Syringe) 10 ml IV PRN PRN PRN Reason: LINE FLUSH Review of Systems Constitutional: weakness, no fever, no chills Ears, nose, mouth and throat: no nasal congestion, no sore throat Cardiovascular: no chest pain, no palpitations Respiratory: no cough, no shortness of breath Gastrointestinal: no abdominal pain, no nausea, no vomiting, no diarrhea Genitourinary Male: no dysuria, no hematuria, no flank pain Musculoskeletal: muscle cramps, no neck pain, no low back pain Integumentary: no rash, no pruritis Neurological: no headaches, no confusion Psychiatric: no anxiety, no depression Endocrine: no polyphagia, no polydipsia, no polyuria, no nocturia Exam - Constitutional Vitals: Temp Pulse Resp BP Pulse Ox 98 F 85 14 195/131 97 05/29/22 12:27 05/30/22 05:03 05/30/22 05:03 05/30/22 05:03 05/30/22 05:03 General appearance: Present: no acute distress, well-nourished - EENT Eyes: Present: PERRL, EOM intact. Absent: scleral icterus ENT: hearing intact, clear oral mucosa, dentition normal - Neck Neck: Present: supple, normal ROM - Respiratory Respiratory effort: normal Respiratory: bilateral: CTA - Cardiovascular Rhythm: regular Heart Sounds: Present: S1 & S2, gallop, systolic murmur (Soft systolic murmur). Absent: diastolic murmur, rub, click Details: Vas-Cath on right anterior chest wall. - Extremities Extremities: no ischemia, pulses intact, pulses symmetrical, normal temperature, normal color, Full ROM Extremity abnormal: edema (1+ bilateral lower extremity edema) Peripheral Pulses: within normal limits - Abdominal General gastrointestinal: Present: soft, non-tender, non-distended, normal bowel sounds. Absent: mass - Integumentary Integumentary: Present: clear, warm, dry, normal turgor. Absent: rash - Musculoskeletal Musculoskeletal: strength equal bilaterally - Psychiatric Psychiatric: appropriate mood/affect, intact judgment & insight, memory intact, cooperative - Neurologic Neurologic: CNII-XII intact, no focal deficits, moves all extremities Results - Labs CBC & Chem 7: 05/29/22 17:24 05/29/22 17:24 Labs: Abnormal lab results 05/29/22 05/29/22 05/29/22 Range/Units 17:24 17:24 18:39 Hgb 10.3 L (11.8-15.2) gm/dl Hct 32.4 L (35.5-45.6) % RDW 15.8 H (13.2-15.2) % Plt Count 137 L (140-440) K/mm3 Potassium 5.3 H (3.6-5.0) mmol/L Chloride 108.3 H (98-107) mmol/L Carbon Dioxide 11 L (22-30) mmol/L BUN 113 H (9-20) mg/dL Creatinine 10.8 H (0.8-1.3) mg/dL Glucose 233 H (75-100) mg/dL Urine Blood Large A (Negative) Urine WBC (Auto) > 182.0 H (0.0-6.0) /HPF Assessment and Plan Assessment: 1. End-stage renal diseaseneeding dialysis 2. Hypertensive urgency 3. UTI 4. Hyperkalemia 5. Diabetes mellitus 6. Noncompliance with dialysis Plan: 1. Patient admitted to medical floor 2. Consult to block setter gypsum has been done by ER physician 3. We will place on routine home medications and also place on as needed antihypertensive medication. 4. Patient placed on sliding scale insulin. We will monitor Accu-Cheks closely. 5. Compliance with dialysis and medications encouraged DVT prophylaxis: Subcutaneous heparin CODE STATUS: Full code
[2022-05-30] MEDS: HEPARIN 5,000 UNIT/1 ML VIAL SUB-Q SCH ×3 (06:38→21:05)
--- NOTE | 2022-05-30 08:49 | Event Note ---
Date: 05/30/22 This is a follow-up from an admission earlier this morning. Patient seen and examined. We will continue to plan as outlined in H&P. Patient counseled on medical noncompliance. Discussed the case with nephrology who plans for hemodialysis today and potentially discharging if BP stable later today or in a.m. Total visit time equals 32 minutes with greater than 50% spent on coordination of care and counseling
[2022-05-30] MEDS ORDERED: SODIUM CHLORIDE 0.9% 100 ML IV PRN (09:00)
[2022-05-30] MEDS ORDERED: HEPARIN 10,000 UNITS/10 ML VIAL IV PRN (09:00)
--- NOTE | 2022-05-30 10:02 | Consultation ---
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 Patient missed several hemodialysis treatment and he was advised to go to ER for further evaluation. He reports some generalized body weakness. He denies any CLARK, dizziness, syncope, fever, chills, N, V, D, abd pain, cp, sob, cough, leg swelling or rash. Initial BP was around 200/130. Labs notable for 5.3, BUN 113, Bicarb 11 and Creatinine 10.8. Nephrology consulted for ESRD management. Past History Past Medical History: anemia, diabetes, dialysis, ESRD, hypertension, stroke Past Surgical History: Other (Open heart surgery for aortic repair, laser surgery for diabetic retinopathy) Social history: no significant social history Family history: no significant family history Medications and Allergies Allergies Allergy/AdvReac Type Severity Reaction Status Date / Time No Known Allergies Allergy Verified 05/30/22 15:01 Home Medications Medication Instructions Recorded Confirmed Last Taken Type AtorvaSTATin [Lipitor] 40 mg PO QHS 05/11/22 05/30/22 05/16/22 History Bumetanide [Bumex 1 mg tab] 1 mg PO BID 05/11/22 05/30/22 05/16/22 History Insulin Glargine,Hum.rec.anlog 20 unit SQ QAM 30 Days #1 box 05/12/22 05/30/22 05/16/22 Rx [Lantus Solostar] Insulin Regular, Human [Novolin R 5 unit SQ AC 30 Days #1 box 05/12/22 05/30/22 05/16/22 Rx Flexpen] NIFEdipine XL [Procardia Xl] 90 mg PO QDAY 30 Days #30 tablet 05/12/22 05/30/22 05/16/22 Rx carvediloL [Coreg] 25 mg PO BID 30 Days #60 tab 05/12/22 05/30/22 05/16/22 Rx Furosemide [Lasix] 40 mg PO BID 05/30/22 05/30/22 05/16/22 History Sevelamer Carbonate [Renvela] 1,600 mg PO TIDWM 05/30/22 05/30/22 05/16/22 History Spironolactone [Aldactone] 25 mg PO QDAY 05/30/22 05/30/22 05/16/22 History hydrALAZINE [Apresoline] 25 mg PO Q8HR 05/30/22 05/30/22 05/16/22 History Active Meds: Active Medications Acetaminophen (Acetaminophen 325 Mg Tab) 650 mg PO Q4H PRN PRN Reason: Pain MILD(1-3)/Fever >100.5/CLARK Dextrose (Dextrose 50% In Water (25gm) 50 Ml Syringe) 0 ml IV Q30MIN PRN; Protocol PRN Reason: Hypoglycemia Heparin Sodium (Porcine) (Heparin 5,000 Unit/1 Ml Vial) 5,000 unit SUB-Q Q8HR KRISTINA Last Admin: 05/30/22 06:38 Dose: 5,000 unit Heparin Sodium (Porcine) (Heparin 10,000 Units/10 Ml Vial) 3,000 unit IV EVELINA PRN PRN Reason: hemodialysis Hydralazine HCl (Hydralazine 20 Mg/1 Ml Inj) 10 mg IV Q4H PRN PRN Reason: Blood Pressure Ceftriaxone Sodium (Rocephin/Ns 1 Gm/50 Ml) 1 gm in 50 mls @ 100 mls/hr IV Q24H KRISTINA; Protocol Sodium Chloride (Nacl 0.9%) 100 mls @ 999 mls/hr IV EVELINA PRN PRN Reason: Hypotension Insulin Human Lispro (Insulin Lispro 100 Unit/Ml) 0 unit SUB-Q ACHS KRISTINA; Protocol Magnesium Hydroxide (Magnesium Hydroxide (Mom) Oral Liqd Udc) 30 ml PO Q4H PRN PRN Reason: Constipation Morphine Sulfate (Morphine 2 Mg/1 Ml Inj) 2 mg IV Q4H PRN PRN Reason: Pain, Moderate (4-6) Morphine Sulfate (Morphine 4 Mg/1 Ml Inj) 4 mg IV Q4H PRN PRN Reason: Pain , Severe (7-10) Ondansetron HCl (Ondansetron 4 Mg/2 Ml Inj) 4 mg IV Q8H PRN PRN Reason: Nausea And Vomiting Sodium Chloride (Sodium Chloride 0.9% 10 Ml Flush Syringe) 10 ml IV BID KRISTINA Sodium Chloride (Sodium Chloride 0.9% 10 Ml Flush Syringe) 10 ml IV PRN PRN PRN Reason: LINE FLUSH Review of Systems All systems: negative Exam - Vital Signs Vital signs: Vital Signs Temp Pulse Resp BP Pulse Ox 98 F 63 18 200/121 100 05/29/22 12:27 05/29/22 12:27 05/29/22 12:27 05/29/22 12:27 05/29/22 12:27 Results - Lab Results 05/29/22 17:24 05/29/22 17:24 Most recent lab results Calcium 8.7 mg/dL (8.4-10.2) 05/29/22 17:24 Assessment and Plan 1. ESRD: Patient is on maintenance hemodialysis, TTS schedule. Last outpatient HD 05/17. Hemodialysis: 05/30. 2. FEN: Hyperkalemia, HD today. Anion-gap metabolic acidosis, 2/2 missed HD, HD today, monitor. UF with HD as tolerated. Monitor lytes and volume status. 3. Uncontrolled Hypertension: 2/2 medication non-compliance. Patient still has meds filled in 2019. Counseled to take meds as prescribed. Resume home meds. Monitor BP. 4. DM-2: Monitor. 5. Normochromic Anemia, POA: 2/2 ESRD. Epogen with HD as needed. Outpatient HD chair at [facility]. Subjective: Patient was seen and examined at the bedside. Examination: General appearance: well-developed, appears stated age, no distress HEENT: atraumatic, SAM Neck: trachea midline Respiratory: ctab Heart: S1S2, regular, no murmur Abdomen: soft, bowel sounds heard, NT Integumentary: no obvious rash Neurologic: AO, able to move extremities Ext: no edema Hemodialysis access: R IJ tunnel catheter
[2022-05-30] MEDS ORDERED: NIFEdipine XL 90 MG TAB PO SCH ×2 (11:00→11:30)
[2022-05-30] MEDS ORDERED: carvediloL 25 MG TAB PO SCH (11:00)
[2022-05-30 12:03] LABS: Hepatitis B Surface Antigen Non-Reactive (Negative); Hepatitis C Virus Antibody Non-Reactive (NonReactive)
[2022-05-30] MEDS ORDERED: ONDANSETRON 4 MG/2 ML INJ IV ONE (12:28)
[2022-05-30] MEDS: carvediloL 25 MG TAB PO SCH ×2 (12:46→21:02)
[2022-05-30] MEDS ORDERED: niCARdipine 50 MG in SODIUM CHLORIDE 0.9% 250ML 230 ML IV SCH (13:00)
[2022-05-30] MEDS: INSULIN LISPRO 100 UNIT/ML SUB-Q SCH ×4 (13:00→21:09)
[2022-05-30] MEDS: cefTRIAXone/NS 1 GM/50 ML 1 GM/50 ML BAG IV SCH (13:03)
[2022-05-30] MEDS: hydrALAZINE 25 MG TAB PO SCH ×2 (13:06→21:03)
--- NOTE | 2022-05-30 13:18 | Event Note ---
Date: 05/30/22 [facility] re code met. Patient was undergoing dialysis and noted to suddenly become unresponsive with accelerated hypertension. Nurse reports that patient never lost pulse and unresponsiveness was momentary/transient with return of consciousness after physical stimulation. However, patient's blood pressure was noted to be 210/100. Upon my arrival, patient noted to be alert and oriented x3 and responsive to all questions. The patient is transferred to ICU and started on Cardene drip for accelerated hypertension/hypertensive emergency. I discussed the case with seafood fisherman, Dr. Guzman. Patient only had 1.5 L removed during hemodialysis. He will likely need further hemodialysis in a.m. once stabilized. The high probability of a clinically significant, sudden or life threatening deterioration of the [respiratory, neurologic] system(s) required my full and direct attention, intervention and personal management. The aggregate critical care time was [33] minutes. This time is in addition to time spent performing reported procedures but includes the following: [x] Data Review and interpretation [x] Patient assessment and monitoring of vital signs [x] Documentation [x] Medication orders and management
[2022-05-30] MEDS ORDERED: hydrALAZINE 25 MG TAB PO SCH (14:00)
--- NOTE | 2022-05-30 16:52 | Consultation ---
History of Present Illness Consult date: 05/30/22 Requesting physician: FRANK JOHNSON History of present illness: PULMONARY/CCM CONSULT NOTE (Full dictation # [id number]) Please see dictated notes for full details Past History Past Medical History: diabetes, dialysis, ESRD, hypertension, stroke Past Surgical History: Other (Open heart surgery for aortic repair, laser surgery for diabetic retinopathy) Social history: no significant social history Family history: no significant family history Medications and Allergies Allergies Allergy/AdvReac Type Severity Reaction Status Date / Time No Known Allergies Allergy Verified 05/30/22 15:01 Home Medications Medication Instructions Recorded Confirmed Last Taken Type AtorvaSTATin [Lipitor] 40 mg PO QHS 05/11/22 05/30/22 05/16/22 History Bumetanide [Bumex 1 mg tab] 1 mg PO BID 05/11/22 05/30/22 05/16/22 History Insulin Glargine,Hum.rec.anlog 20 unit SQ QAM 30 Days #1 box 05/12/22 05/30/22 05/16/22 Rx [Lantus Solostar] Insulin Regular, Human [Novolin R 5 unit SQ AC 30 Days #1 box 05/12/22 05/30/22 05/16/22 Rx Flexpen] NIFEdipine XL [Procardia Xl] 90 mg PO QDAY 30 Days #30 tablet 05/12/22 05/30/22 05/16/22 Rx carvediloL [Coreg] 25 mg PO BID 30 Days #60 tab 05/12/22 05/30/22 05/16/22 Rx Furosemide [Lasix] 40 mg PO BID 05/30/22 05/30/22 05/16/22 History Sevelamer Carbonate [Renvela] 1,600 mg PO TIDWM 05/30/22 05/30/22 05/16/22 History Spironolactone [Aldactone] 25 mg PO QDAY 05/30/22 05/30/22 05/16/22 History hydrALAZINE [Apresoline] 25 mg PO Q8HR 05/30/22 05/30/22 05/16/22 History Active Meds: Active Medications Acetaminophen (Acetaminophen 325 Mg Tab) 650 mg PO Q4H PRN PRN Reason: Pain MILD(1-3)/Fever >100.5/CLARK Atorvastatin Calcium (Atorvastatin 40 Mg Tab) 40 mg PO QHS [facility] Bumetanide (Bumetanide 1 Mg Tab) 1 mg PO BID [facility] Carvedilol (Carvedilol 25 Mg Tab) 25 mg PO BID [facility] Last Admin: 05/30/22 12:46 Dose: 25 mg Citalopram Hydrobromide (Citalopram 20 Mg Tab) 40 mg PO DAILY [facility] Dextrose (Dextrose 50% In Water (25gm) 50 Ml Syringe) 0 ml IV Q30MIN PRN; Protocol PRN Reason: Hypoglycemia Heparin Sodium (Porcine) (Heparin 5,000 Unit/1 Ml Vial) 5,000 unit SUB-Q Q8HR [facility] Last Admin: 05/30/22 13:06 Dose: Not Given Heparin Sodium (Porcine) (Heparin 10,000 Units/10 Ml Vial) 3,000 unit IV EVELINA PRN PRN Reason: hemodialysis Hydralazine HCl (Hydralazine 20 Mg/1 Ml Inj) 10 mg IV Q4H PRN PRN Reason: Blood Pressure Last Admin: 05/30/22 11:01 Dose: 10 mg Hydralazine HCl (Hydralazine 25 Mg Tab) 50 mg PO Q8HR [facility] Last Admin: 05/30/22 13:06 Dose: 50 mg Ceftriaxone Sodium (Rocephin/Ns 1 Gm/50 Ml) 1 gm in 50 mls @ 100 mls/hr IV Q24H [facility]; Protocol Last Admin: 05/30/22 13:03 Dose: Not Given Sodium Chloride (Nacl 0.9%) 100 mls @ 999 mls/hr IV EVELINA PRN PRN Reason: Hypotension Nicardipine HCl 50 mg/ Sodium (Chloride) 250 mls @ 25 mls/hr IV TITR [facility]; Protocol Last Titration: 05/30/22 14:02 Dose: 0 mg/hr, 0 mls/hr Insulin Glargine (Insulin Glargine 100 Units/Ml) 20 units SUB-Q QAM [facility] Insulin Human Lispro (Insulin Lispro 100 Unit/Ml) 0 unit SUB-Q ACHS [facility]; Protocol Last Admin: 05/30/22 16:43 Dose: Not Given Isosorbide Mononitrate (Isosorbide Mononitrate Er 60 Mg Tab) 120 mg PO QDAY [facility] Magnesium Hydroxide (Magnesium Hydroxide (Mom) Oral Liqd Udc) 30 ml PO Q4H PRN PRN Reason: Constipation Morphine Sulfate (Morphine 2 Mg/1 Ml Inj) 2 mg IV Q4H PRN PRN Reason: Pain, Moderate (4-6) Morphine Sulfate (Morphine 4 Mg/1 Ml Inj) 4 mg IV Q4H PRN PRN Reason: Pain , Severe (7-10) Nifedipine (Nifedipine Xl 90 Mg Tab) 90 mg PO QDAY [facility] Ondansetron HCl (Ondansetron 4 Mg/2 Ml Inj) 4 mg IV Q8H PRN PRN Reason: Nausea And Vomiting Sodium Chloride (Sodium Chloride 0.9% 10 Ml Flush Syringe) 10 ml IV BID [facility] Last Admin: 05/30/22 13:15 Dose: 10 ml Sodium Chloride (Sodium Chloride 0.9% 10 Ml Flush Syringe) 10 ml IV PRN PRN PRN Reason: LINE FLUSH Spironolactone (Spironolactone 50 Mg Tab) 100 mg PO QDAY [facility] Physical Examination Vital signs: Vital Signs Temp Pulse Resp BP Pulse Ox 98 F 63 18 200/121 100 05/29/22 12:27 05/29/22 12:27 05/29/22 12:27 05/29/22 12:27 05/29/22 12:27 Results - Laboratory Findings CBC and BMP: 05/29/22 17:24 05/29/22 17:24 Abnormal lab findings: Abnormal Labs 05/29/22 05/29/22 05/29/22 17:24 17:24 18:39 Hgb 10.3 L Hct 32.4 L RDW 15.8 H Plt Count 137 L Potassium 5.3 H Chloride 108.3 H Carbon Dioxide 11 L BUN 113 H Creatinine 10.8 H Glucose 233 H POC Glucose Urine Blood Large A Urine WBC (Auto) > 182.0 H 05/30/22 05/30/22 12:09 12:51 Hgb Hct RDW Plt Count Potassium Chloride Carbon Dioxide BUN Creatinine Glucose POC Glucose 160 H 128 H Urine Blood Urine WBC (Auto)
[2022-05-30] MEDS: FAMOTIDINE 20 MG TAB PO SCH ×2 (17:18→21:03)
[2022-05-30] MEDS: BUMETANIDE 1 MG TAB PO SCH (21:06)
--- NOTE | 2022-05-30 22:25 | Cat Scan Report ---
CT head/brain wo con INDICATION / CLINICAL INFORMATION: 51 years Male; Encephalopathy. TECHNIQUE: Routine CT head without contrast. All CT scans at this location are performed using CT dos e reduction for ALARA by means of automated exposure control. COMPARISON: None. FINDINGS: BRAIN / INTRACRANIAL CONTENTS: Area of encephalomalacia is seen in the right parietal-occipital regio n some component of cystic type change suggested as well. Branch infarct or posttraumatic change woul d be the most likely etiologies. Please clinically correlate. Small, age-indeterminate lacunar infarcts seen in the anterior thalamic region on the left. Follow-up with diffusion imaging by MRI, as clinically warranted. Otherwise, no acute hemorrhage, mass effect, midline shift, hydrocephalus, or acute, large territori al infarct. Mild to moderate degree of hippocampal atrophy suggested bilaterally. There are moderate areas of decreased attenuation in the white matter of the cerebral hemispheres. Th tacos are nonspecific findings and may be related to microangiopathy (hypertension, diabetes, atheroscl erosis), given the patient's age. It might be difficult to evaluate for small areas of ischemia witho ut diffusion imaging by MRI. CRANIOCERVICAL JUNCTION: No significant abnormality. ORBITS: No significant abnormality of visualized orbits. SINUSES / MASTOIDS: Mild mucosal thickening in the ethmoids, as well as the mastoids. Mucous retentio n cyst/polyps seen in the maxillary antra. ADDITIONAL FINDINGS: Atherosclerotic disease is seen in the anterior and posterior circulation. IMPRESSION: 1. No focal mass, hemorrhage, hydrocephalus, or acute, large territorial infarct. Follow-up with diff usion imaging by MRI, as clinically warranted. Signer Name: Aldair Mckenzie MD, III Signed: 05/30/2022 10:21 PM Workstation Name: [id number]
[2022-05-31 04:53] LABS: Basophils % (Auto) 0.5 % (0.0-1.8); Eosinophils # (Auto) 0.1 K/mm3 (0.0-0.4); Eosinophils % (Auto) 2.4 % (0.0-4.3); Hematocrit 28.6 % (35.5-45.6); Hemoglobin 9.4 gm/dl (11.8-15.2); Lymphocytes # (Auto) 1.1 K/mm3 (1.2-5.4); Lymphocytes % (Auto) 22.2 % (13.4-35.0); Mean Corpuscular HGB Conc 33 % (32-34); Mean Corpuscular Volume 86 fl (84-94); Monocytes # (Auto) 0.4 K/mm3 (0.0-0.8); Monocytes % (Auto) 8.3 % (0.0-7.3); Platelet Count 139 K/mm3 (140-440); Red Blood Count 3.32 M/mm3 (3.65-5.03); Red Cell Distribution Width 15.7 % (13.2-15.2)
[2022-05-31 05:11] LABS: Calcium 8.2 mg/dL (8.4-10.2)
[2022-05-31] MEDS: hydrALAZINE 25 MG TAB PO SCH ×3 (07:57→22:02)
[2022-05-31] MEDS: cefTRIAXone/NS 1 GM/50 ML 1 GM/50 ML BAG IV SCH (07:58)
[2022-05-31] MEDS: HEPARIN 5,000 UNIT/1 ML VIAL SUB-Q SCH ×3 (08:20→22:00)
[2022-05-31] MEDS: INSULIN LISPRO 100 UNIT/ML SUB-Q SCH ×4 (08:21→22:54)
[2022-05-31] MEDS: BUMETANIDE 1 MG TAB PO SCH ×2 (09:26→22:57)
[2022-05-31] MEDS: SEVELAMER CARBONATE 800 MG TAB PO SCH ×3 (09:26→17:58)
[2022-05-31] MEDS: NIFEdipine XL 90 MG TAB PO SCH (09:27)
[2022-05-31] MEDS: CITALOPRAM 20 MG TAB PO SCH (09:27)
[2022-05-31] MEDS: carvediloL 25 MG TAB PO SCH ×2 (09:27→22:03)
--- NOTE | 2022-05-31 09:42 | Progress Note ---
Assessment and Plan 1. ESRD: Patient is on maintenance hemodialysis, MWF schedule. Last outpatient HD 05/17. Hemodialysis: 05/30. 2. FEN: Hyperkalemia, HD today. Anion-gap metabolic acidosis, 2/2 missed HD, on HD, monitor. UF with HD as tolerated. Monitor lytes and volume status. 3. Uncontrolled Hypertension: 2/2 medication non-compliance. Patient still has meds filled in 2019. Counseled to take meds as prescribed. Continue home meds and adjust as needed. Monitor BP. 4. DM-2: Monitor. 5. Normochromic Anemia, POA: 2/2 ESRD. Epogen with HD as needed. Outpatient HD chair at [facility]. Subjective: Patient was seen and examined at the bedside. Doing ok. Examination: General appearance: well-developed, appears stated age, no distress HEENT: atraumatic, SAM Neck: trachea midline Respiratory: ctab Heart: S1S2, regular, no murmur Abdomen: soft, bowel sounds heard, NT Integumentary: no obvious rash Neurologic: AO, able to move extremities Ext: no edema Hemodialysis access: R IJ tunnel catheter Subjective Date of service: 05/31/22 Objective - Vital Signs Vital signs: Vital Signs - 12hr 05/30/22 05/30/22 05/30/22 21:51 22:00 22:11 Temperature Pulse Rate 68 68 68 Pulse Rate [ From Monitor] Respiratory 20 22 Rate Blood Pressure 135/81 138/77 138/77 O2 Sat by Pulse 100 100 100 Oximetry 05/30/22 05/30/22 05/30/22 22:20 22:30 22:41 Temperature Pulse Rate 68 68 68 Pulse Rate [ From Monitor] Respiratory 21 20 18 Rate Blood Pressure 138/77 136/73 136/73 O2 Sat by Pulse 99 99 98 Oximetry 05/30/22 05/30/22 05/30/22 22:50 23:00 23:11 Temperature Pulse Rate 67 70 69 Pulse Rate [ From Monitor] Respiratory 24 16 21 Rate Blood Pressure 136/73 128/71 128/71 O2 Sat by Pulse 99 99 100 Oximetry 05/30/22 05/30/22 05/30/22 23:21 23:30 23:41 Temperature Pulse Rate 68 68 68 Pulse Rate [ From Monitor] Respiratory 21 21 23 Rate Blood Pressure 128/71 134/77 134/77 O2 Sat by Pulse 100 97 95 Oximetry 05/30/22 05/31/22 05/31/22 23:51 00:00 00:11 Temperature 98.4 F Pulse Rate 68 67 68 Pulse Rate [ 62 From Monitor] Respiratory Rate Blood Pressure 134/77 135/77 135/77 O2 Sat by Pulse 94 100 99 Oximetry 05/31/22 05/31/22 05/31/22 00:21 00:30 00:41 Temperature Pulse Rate 68 67 67 Pulse Rate [ From Monitor] Respiratory Rate Blood Pressure 135/77 127/76 127/76 O2 Sat by Pulse 98 97 96 Oximetry 05/31/22 05/31/22 05/31/22 00:51 01:00 01:11 Temperature Pulse Rate 68 68 68 Pulse Rate [ 62 From Monitor] Respiratory Rate Blood Pressure 127/76 133/81 133/81 O2 Sat by Pulse 94 99 100 Oximetry 05/31/22 05/31/22 05/31/22 01:21 01:31 01:41 Temperature Pulse Rate 69 69 68 Pulse Rate [ From Monitor] Respiratory 18 19 17 Rate Blood Pressure 133/81 116/68 116/68 O2 Sat by Pulse 98 99 98 Oximetry 05/31/22 05/31/22 05/31/22 01:51 02:00 02:11 Temperature Pulse Rate 68 68 69 Pulse Rate [ From Monitor] Respiratory 25 H Rate Blood Pressure 116/68 133/81 133/81 O2 Sat by Pulse 100 98 94 Oximetry 05/31/22 05/31/22 05/31/22 02:20 02:30 02:40 Temperature Pulse Rate 69 68 67 Pulse Rate [ From Monitor] Respiratory 7 L 19 12 Rate Blood Pressure 133/81 122/72 122/72 O2 Sat by Pulse 99 99 100 Oximetry 05/31/22 05/31/22 05/31/22 02:50 03:00 03:10 Temperature Pulse Rate 70 68 68 Pulse Rate [ From Monitor] Respiratory 11 L 18 14 Rate Blood Pressure 122/72 122/72 133/82 O2 Sat by Pulse 99 100 100 Oximetry 05/31/22 05/31/22 05/31/22 03:20 03:30 03:40 Temperature Pulse Rate 67 66 67 Pulse Rate [ From Monitor] Respiratory 24 22 20 Rate Blood Pressure 133/82 133/82 138/80 O2 Sat by Pulse 98 98 99 Oximetry 05/31/22 05/31/22 05/31/22 03:50 04:00 04:11 Temperature 98.4 F Pulse Rate 67 67 67 Pulse Rate [ 62 From Monitor] Respiratory Rate Blood Pressure 138/80 138/80 133/82 O2 Sat by Pulse 99 100 99 Oximetry 05/31/22 05/31/22 05/31/22 04:21 04:30 04:41 Temperature Pulse Rate 67 67 68 Pulse Rate [ From Monitor] Respiratory Rate Blood Pressure 137/78 147/87 147/87 O2 Sat by Pulse 99 97 97 Oximetry 05/31/22 05/31/22 05/31/22 04:51 05:00 05:11 Temperature Pulse Rate 68 68 69 Pulse Rate [ From Monitor] Respiratory Rate Blood Pressure 147/87 157/89 157/89 O2 Sat by Pulse 91 100 100 Oximetry 05/31/22 05/31/22 05/31/22 05:21 05:30 05:40 Temperature Pulse Rate 70 68 69 Pulse Rate [ From Monitor] Respiratory 27 H Rate Blood Pressure 157/89 160/94 160/94 O2 Sat by Pulse 97 100 95 Oximetry 05/31/22 05/31/22 05/31/22 05:51 06:00 06:11 Temperature Pulse Rate 69 69 70 Pulse Rate [ From Monitor] Respiratory 27 H Rate Blood Pressure 160/94 162/94 162/94 O2 Sat by Pulse 97 100 96 Oximetry 05/31/22 05/31/22 05/31/22 06:21 06:30 06:41 Temperature Pulse Rate 69 69 72 Pulse Rate [ From Monitor] Respiratory 21 17 13 Rate Blood Pressure 162/94 166/96 166/96 O2 Sat by Pulse 99 100 100 Oximetry 05/31/22 05/31/22 05/31/22 06:51 07:00 07:11 Temperature Pulse Rate 70 70 69 Pulse Rate [ From Monitor] Respiratory 22 Rate Blood Pressure 166/96 157/91 157/91 O2 Sat by Pulse 100 99 100 Oximetry 05/31/22 05/31/22 05/31/22 07:14 07:21 07:30 Temperature 99.3 F Pulse Rate 69 69 Pulse Rate [ From Monitor] Respiratory 25 H 23 Rate Blood Pressure 157/91 162/95 O2 Sat by Pulse 97 98 Oximetry 05/31/22 05/31/22 05/31/22 07:41 07:51 07:57 Temperature Pulse Rate 68 69 Pulse Rate [ From Monitor] Respiratory 17 15 Rate Blood Pressure 162/95 162/95 162/95 O2 Sat by Pulse 98 100 Oximetry 05/31/22 05/31/22 05/31/22 08:00 08:01 09:27 Temperature Pulse Rate 70 71 69 Pulse Rate [ 70 From Monitor] Respiratory 11 L 15 Rate Blood Pressure 173/102 150/88 O2 Sat by Pulse 99 99 Oximetry - Lab 06/01/22 03:57 06/01/22 03:57 Most recent lab results Calcium 8.2 mg/dL (8.4-10.2) L 05/31/22 04:18 Medications & Allergies - Medications Allergies/Adverse Reactions: Allergies No Known Allergies Allergy (Verified 05/30/22 15:01) Home Medications: Home Medications Medication Instructions Recorded Confirmed Last Taken Type AtorvaSTATin [Lipitor] 40 mg PO QHS 05/11/22 05/30/22 05/16/22 History Bumetanide [Bumex 1 mg tab] 1 mg PO BID 05/11/22 05/30/22 05/16/22 History Insulin Glargine,Hum.rec.anlog 20 unit SQ QAM 30 Days #1 box 05/12/22 05/30/22 05/16/22 Rx [Lantus Solostar] Insulin Regular, Human [Novolin R 5 unit SQ AC 30 Days #1 box 05/12/22 05/30/22 05/16/22 Rx Flexpen] NIFEdipine XL [Procardia Xl] 90 mg PO QDAY 30 Days #30 tablet 05/12/22 05/30/22 05/16/22 Rx carvediloL [Coreg] 25 mg PO BID 30 Days #60 tab 05/12/22 05/30/22 05/16/22 Rx Sevelamer Carbonate [Renvela] 1,600 mg PO TIDWM 05/30/22 05/30/22 05/16/22 History Citalopram [Celexa] 40 mg PO DAILY tablet 06/01/22 Unknown Rx ISOSORBIDE MONOnitrate [Imdur ER] 120 mg PO QDAY tablet 06/01/22 Unknown Rx Spironolactone [Aldactone] 100 mg PO QDAY tablet 06/01/22 Unknown Rx hydrALAZINE [Apresoline TAB] 50 mg PO Q8HR tablet 06/01/22 Unknown Rx Active Medications: Generic Name Dose Route Start Last Admin Trade Name Freq PRN Reason Stop Dose Admin Acetaminophen 650 mg 05/30/22 05:37 Acetaminophen 325 Mg Tab PO Q4H PRN Pain MILD(1-3)/Fever >100.5/CLARK Atorvastatin Calcium 40 mg 05/30/22 22:00 05/30/22 21:03 Atorvastatin 40 Mg Tab PO 40 mg QHS KRISTINA Administration Bumetanide 1 mg 05/30/22 22:00 05/31/22 09:26 Bumetanide 1 Mg Tab PO 1 mg BID KRISTINA Administration Carvedilol 25 mg 05/30/22 11:30 05/31/22 09:27 Carvedilol 25 Mg Tab PO 25 mg BID KRISTINA Administration Citalopram Hydrobromide 40 mg 05/31/22 10:00 05/31/22 09:27 Citalopram 20 Mg Tab PO 40 mg DAILY KRISTINA Administration Dextrose 0 ml 05/30/22 05:37 Dextrose 50% In Water (25gm) 50 Ml Syringe IV Q30MIN PRN Hypoglycemia Protocol Famotidine 20 mg 05/30/22 18:00 05/30/22 21:03 Famotidine 20 Mg Tab PO 20 mg QHS KRISTINA Administration Heparin Sodium (Porcine) 5,000 unit 05/30/22 06:00 05/31/22 08:20 Heparin 5,000 Unit/1 Ml Vial SUB-Q Not Given Q8HR KRISTINA Heparin Sodium (Porcine) 3,000 unit 05/30/22 09:00 Heparin 10,000 Units/10 Ml Vial IV EVELINA PRN hemodialysis Hydralazine HCl 10 mg 05/30/22 05:39 05/30/22 11:01 Hydralazine 20 Mg/1 Ml Inj IV 10 mg Q4H PRN Administration Blood Pressure Hydralazine HCl 50 mg 05/30/22 14:00 05/31/22 07:57 Hydralazine 25 Mg Tab PO 50 mg Q8HR KRISTINA Administration Ceftriaxone Sodium 1 gm in 50 mls @ 100 mls/hr 05/30/22 06:00 05/31/22 07:58 Rocephin/Ns 1 Gm/50 Ml IV 05/31/22 10:00 100 mls/hr Q24H KRISTINA Administration Protocol Sodium Chloride 100 mls @ 999 mls/hr 05/30/22 09:00 Nacl 0.9% IV EVELINA PRN Hypotension Nicardipine HCl 50 mg/ Sodium 250 mls @ 25 mls/hr 05/30/22 13:00 05/30/22 14:02 Chloride IV 0 mg/hr TITR KRISTINA 0 mls/hr Titration Protocol 5 MG/HR Insulin Glargine 20 units 05/31/22 10:00 05/31/22 09:25 Insulin Glargine 100 Units/Ml SUB-Q 20 units QAM [facility] Administration Insulin Human Lispro 0 unit 05/30/22 07:30 05/31/22 08:21 Insulin Lispro 100 Unit/Ml SUB-Q Not Given ACHS [facility] Protocol Isosorbide Mononitrate 120 mg 05/31/22 10:00 Isosorbide Mononitrate Er 60 Mg Tab PO QDAY [facility] Magnesium Hydroxide 30 ml 05/30/22 05:37 Magnesium Hydroxide (Mom) Oral Liqd Udc PO Q4H PRN Constipation Morphine Sulfate 2 mg 05/30/22 05:37 Morphine 2 Mg/1 Ml Inj IV Q4H PRN Pain, Moderate (4-6) Morphine Sulfate 4 mg 05/30/22 05:37 Morphine 4 Mg/1 Ml Inj IV Q4H PRN Pain , Severe (7-10) Nifedipine 90 mg 05/31/22 10:00 05/31/22 09:27 Nifedipine Xl 90 Mg Tab PO 90 mg QDAY [facility] Administration Ondansetron HCl 4 mg 05/30/22 05:37 Ondansetron 4 Mg/2 Ml Inj IV Q8H PRN Nausea And Vomiting Sevelamer Carbonate 1,600 mg 05/31/22 09:00 05/31/22 09:26 Sevelamer Carbonate 800 Mg Tab PO 1,600 mg TIDWM [facility] Administration Sodium Chloride 10 ml 05/30/22 10:00 05/31/22 09:33 Sodium Chloride 0.9% 10 Ml Flush Syringe IV 10 ml BID KRISTINA Administration Sodium Chloride 10 ml 05/30/22 05:37 Sodium Chloride 0.9% 10 Ml Flush Syringe IV PRN PRN LINE FLUSH Spironolactone 100 mg 05/31/22 10:00 Spironolactone 50 Mg Tab PO QDAY [facility]
[2022-05-31] MEDS ORDERED: ISOSORBIDE MONONITRATE 120 MG PO SCH (10:00)
[2022-05-31] MEDS ORDERED: NON-FORMULARY EACH (Insulin Glargine,Hum.Rec.Anlog [Lantus Solostar] 100 UNIT/ML Insuln.Pe SQ SCH (10:00)
[2022-05-31] MEDS ORDERED: INSULIN GLARGINE 100 UNITS/ML SUB-Q SCH ×2 (10:00→14:36)
[2022-05-31] MEDS ORDERED: NON-FORMULARY EACH (Spironolactone [Aldactone] 100 MG Tablet) PO SCH (10:00)
--- NOTE | 2022-05-31 10:22 | Progress Note ---
Assessment and Plan Acute toxic metabolic encephalopathy Hypertensive emergency End-stage renal disease, on dialysis DM II Hyperkalemia Urinary tract infection Medication noncompliance and medical treatment noncompliance Anemia that is normocytic Metabolic acidosis, normal anion gap - adjusting oral antihypertensives but off Cardene drip - prn supplemental oxygen to keep O2 sats > 90% - prn bronchodilators (ANUP & LABA) with pulm hygiene per RT - continue to avoid nephrotoxins, renally dose all medications - mobility protocols to prevent pressure ulcers - PT/OT as tolerated - Wound care per RN/WCT - continue accuchecks with glycemic control per SSI for target blood glucose < 180 mg/dL - tobacco abstinence strongly counseled at the bedside - home oxygen evaluation at discharge - GI & VTE prophylaxis - Flu & pneumovax per protocol - prn analgesia per pain score - continue other care per attending / other consultants .... ok to transfer to medical floor ... re-evaluate in am & prn Subjective Date of service: 05/31/22 Principal diagnosis: AMS; HTNsive emergency; ESRD on dialysis; DM II; UTI; Hyperkalemia Interval history: Patient is seen today for: Acute toxic metabolic encephalopathy; Hypertensive emergency; ESRD on dialysis; DM II; UTI; Hyperkalemia; Medication noncompliance and medical treatment noncompliance; Anemia; Metabolic acidosis Seen and examined at bedside; 24hour events reviewed; nursing and respiratory care staff consulted; no adverse overnight events reported to me; resting in bed; denies acute chest pain or SOB; BP's better; off Cardene; no N/V/F/C Objective Vital Signs - 12hr 05/30/22 05/30/22 05/30/22 22:30 22:41 22:50 Temperature Pulse Rate 68 68 67 Pulse Rate [ From Monitor] Respiratory 20 18 24 Rate Blood Pressure 136/73 136/73 136/73 O2 Sat by Pulse 99 98 99 Oximetry 05/30/22 05/30/22 05/30/22 23:00 23:11 23:21 Temperature Pulse Rate 70 69 68 Pulse Rate [ From Monitor] Respiratory 16 21 Rate Blood Pressure 128/71 128/71 128/71 O2 Sat by Pulse 99 100 100 Oximetry 05/30/22 05/30/22 05/30/22 23:30 23:41 23:51 Temperature Pulse Rate 68 68 68 Pulse Rate [ From Monitor] Respiratory 21 Rate Blood Pressure 134/77 134/77 134/77 O2 Sat by Pulse 97 95 94 Oximetry 05/31/22 05/31/22 05/31/22 00:00 00:11 00:21 Temperature 98.4 F Pulse Rate 67 68 68 Pulse Rate [ 62 From Monitor] Respiratory 24 Rate Blood Pressure 135/77 135/77 135/77 O2 Sat by Pulse 100 99 98 Oximetry 05/31/22 05/31/22 05/31/22 00:30 00:41 00:51 Temperature Pulse Rate 67 67 68 Pulse Rate [ From Monitor] Respiratory Rate Blood Pressure 127/76 127/76 127/76 O2 Sat by Pulse 97 96 94 Oximetry 05/31/22 05/31/22 05/31/22 01:00 01:11 01:21 Temperature Pulse Rate 68 68 69 Pulse Rate [ 62 From Monitor] Respiratory 22 20 18 Rate Blood Pressure 133/81 133/81 133/81 O2 Sat by Pulse 99 100 98 Oximetry 05/31/22 05/31/22 05/31/22 01:31 01:41 01:51 Temperature Pulse Rate 69 68 68 Pulse Rate [ From Monitor] Respiratory 19 17 20 Rate Blood Pressure 116/68 116/68 116/68 O2 Sat by Pulse 99 98 100 Oximetry 05/31/22 05/31/22 05/31/22 02:00 02:11 02:20 Temperature Pulse Rate 68 69 69 Pulse Rate [ From Monitor] Respiratory 22 25 H 7 L Rate Blood Pressure 133/81 133/81 133/81 O2 Sat by Pulse 98 94 99 Oximetry 05/31/22 05/31/22 05/31/22 02:30 02:40 02:50 Temperature Pulse Rate 68 67 70 Pulse Rate [ From Monitor] Respiratory 19 12 11 L Rate Blood Pressure 122/72 122/72 122/72 O2 Sat by Pulse 99 100 99 Oximetry 05/31/22 05/31/22 05/31/22 03:00 03:10 03:20 Temperature Pulse Rate 68 68 67 Pulse Rate [ From Monitor] Respiratory 18 14 24 Rate Blood Pressure 122/72 133/82 133/82 O2 Sat by Pulse 100 100 98 Oximetry 05/31/22 05/31/22 05/31/22 03:30 03:40 03:50 Temperature Pulse Rate 66 67 67 Pulse Rate [ From Monitor] Respiratory 22 20 16 Rate Blood Pressure 133/82 138/80 138/80 O2 Sat by Pulse 98 99 99 Oximetry 05/31/22 05/31/22 05/31/22 04:00 04:11 04:21 Temperature 98.4 F Pulse Rate 67 67 67 Pulse Rate [ 62 From Monitor] Respiratory Rate Blood Pressure 138/80 133/82 137/78 O2 Sat by Pulse 100 99 99 Oximetry 05/31/22 05/31/22 05/31/22 04:30 04:41 04:51 Temperature Pulse Rate 67 68 68 Pulse Rate [ From Monitor] Respiratory Rate Blood Pressure 147/87 147/87 147/87 O2 Sat by Pulse 97 97 91 Oximetry 05/31/22 05/31/22 05/31/22 05:00 05:11 05:21 Temperature Pulse Rate 68 69 70 Pulse Rate [ From Monitor] Respiratory Rate Blood Pressure 157/89 157/89 157/89 O2 Sat by Pulse 100 100 97 Oximetry 05/31/22 05/31/22 05/31/22 05:30 05:40 05:51 Temperature Pulse Rate 68 69 69 Pulse Rate [ From Monitor] Respiratory 27 H 24 Rate Blood Pressure 160/94 160/94 160/94 O2 Sat by Pulse 100 95 97 Oximetry 05/31/22 05/31/22 05/31/22 06:00 06:11 06:21 Temperature Pulse Rate 69 70 69 Pulse Rate [ From Monitor] Respiratory 24 27 H 21 Rate Blood Pressure 162/94 162/94 162/94 O2 Sat by Pulse 100 96 99 Oximetry 05/31/22 05/31/22 05/31/22 06:30 06:41 06:51 Temperature Pulse Rate 69 72 70 Pulse Rate [ From Monitor] Respiratory Rate Blood Pressure 166/96 166/96 166/96 O2 Sat by Pulse 100 100 100 Oximetry 05/31/22 05/31/22 05/31/22 07:00 07:11 07:14 Temperature 99.3 F Pulse Rate 70 69 Pulse Rate [ From Monitor] Respiratory Rate Blood Pressure 157/91 157/91 O2 Sat by Pulse 99 100 Oximetry 05/31/22 05/31/22 05/31/22 07:21 07:30 07:41 Temperature Pulse Rate 69 69 68 Pulse Rate [ From Monitor] Respiratory H 23 17 Rate Blood Pressure 157/91 162/95 162/95 O2 Sat by Pulse 97 98 98 Oximetry 05/31/22 05/31/22 05/31/22 07:51 07:57 08:00 Temperature Pulse Rate 69 70 Pulse Rate [ 70 From Monitor] Respiratory 15 11 L Rate Blood Pressure 162/95 162/95 O2 Sat by Pulse 100 99 Oximetry 05/31/22 05/31/22 05/31/22 08:01 08:11 08:21 Temperature Pulse Rate 71 70 67 Pulse Rate [ From Monitor] Respiratory 15 13 22 Rate Blood Pressure 173/102 173/102 173/102 O2 Sat by Pulse 99 97 98 Oximetry 05/31/22 05/31/22 05/31/22 08:31 08:41 08:51 Temperature Pulse Rate 67 68 69 Pulse Rate [ From Monitor] Respiratory 21 16 16 Rate Blood Pressure 173/102 165/100 165/100 O2 Sat by Pulse 99 100 99 Oximetry 05/31/22 05/31/22 05/31/22 09:00 09:11 09:21 Temperature Pulse Rate 68 67 69 Pulse Rate [ From Monitor] Respiratory 14 22 20 Rate Blood Pressure 150/88 150/88 150/88 O2 Sat by Pulse Oximetry 05/31/22 05/31/22 05/31/22 09:27 09:31 09:41 Temperature Pulse Rate 69 71 68 Pulse Rate [ From Monitor] Respiratory 8 L 22 Rate Blood Pressure 150/88 150/88 150/88 O2 Sat by Pulse 100 Oximetry 05/31/22 05/31/22 05/31/22 09:51 10:00 10:11 Temperature Pulse Rate 69 68 68 Pulse Rate [ From Monitor] Respiratory 23 13 20 Rate Blood Pressure 150/88 147/80 147/80 O2 Sat by Pulse 100 100 100 Oximetry Constitutional: no acute distress Eyes: non-icteric ENT: oropharynx moist Neck: supple, no lymphadenopathy, no JVD Effort: normal Ascultation: Right: rhonchi (scant in bases) Percussion: Bilateral: not dull Cardiovascular: regular rate and rhythm Gastrointestinal: normoactive bowel sounds, soft, non-tender, non-distended (protuberant) Integumentary: normal Extremities: no cyanosis, no edema, pulses normal, no ischemia or petechiae Neurologic: non-focal exam, pupils equal and round, CN II-XII normal, motor str ength normal and Psychiatric: mood appropriate, affect normal CBC and BMP: 06/01/22 03:57 06/01/22 03:57 Abnormal lab findings: Abnormal Labs 05/29/22 05/29/22 05/29/22 17:24 17:24 18:39 RBC Hgb 10.3 L Hct 32.4 L RDW 15.8 H Plt Count 137 L [place] % (Auto) Lymph # (Auto) Potassium 5.3 H Chloride 108.3 H Carbon Dioxide 11 L BUN 113 H Creatinine 10.8 H Glucose 233 H POC Glucose Calcium Urine Blood Large A Urine WBC (Auto) > 182.0 H 05/30/22 05/30/22 05/30/22 12:09 12:51 21:08 RBC Hgb Hct RDW Plt Count [place] % (Auto) Lymph # (Auto) Potassium Chloride Carbon Dioxide BUN Creatinine Glucose POC Glucose 160 H 128 H 148 H Calcium Urine Blood Urine WBC (Auto) 05/31/22 05/31/22 05/31/22 04:18 04:18 07:24 RBC 3.32 L Hgb 9.4 L Hct 28.6 L RDW 15.7 H Plt Count 139 L [place] % (Auto) 8.3 H Lymph # (Auto) 1.1 L Potassium Chloride Carbon Dioxide 19 L D BUN 73 H Creatinine 8.2 H Glucose 166 H POC Glucose 149 H Calcium 8.2 L Urine Blood Urine WBC (Auto) Allied health notes reviewed: nursing
--- NOTE | 2022-05-31 10:29 | Progress Note ---
<GORGE WRIGHT - Last Filed: 05/31/22 14:34> Assessment and Plan Assessment and plan: This is a 51-year-old male with known past medical history of ESRD on HD (M,W,F), HTN, DM, and medical noncompliance initially admitted to the floor for fluid overload requiring HD after he missed HD for a week. Patient was transferred to ICU for hypertensive emergency requiring cardene gtt. Hospital Course to Date: 05/31: Patient is off cardene gtt, VSS this am. Continue current antihypertensive therapy, PRN hydralazine to maintain SBP less than 160. Continue HD per Nephro. Patient is stable for transfer to the floor. Assessment and Plan #Hypertensive Emergency #Noncompliant with medications - Code met on the floor, SBP in the 200s during HD s/p cardene gtt - Per patient he stopped taking her medications 2 weeks ago, reason not reported - VSS this am - Continue current antihypertensive regimen - Continue blood pressure monitor per protocol - PRN Hydralazine to maintain SBP less than 160 - CCM is also following #Hypertensive Encephalopathy - Brief loss consciousness during code met - Most like due to high BP - CT head/brain reviewed with no acute abnormality. See report for details - s/p Cardene gtt, BP improved and mentation normalized - Tight BP control, maintain SBP less than 160 - Maintenance of sleep-wake cycle #End-Stage Renal Disease(ESRD) on HD #Hyperkalemia #Medical Noncompliance - Patient missed HD for a week, reason not reported - Nephrology on consult, appreciated recommendation - HD aborted yesterday due to hypertensive emergency - K improved this am - Continue HD per Nephro - Strict intake and output - Avoid nephrotoxic medications; Renally dose medications - Monitor and replace electrolytes as needed #Urinary Tract Infection(UTI) - UA with pyuria, afebrile, and wbcs wnr - Urine culture pending - s/p X2 dose of IV rocephin - F/U on cultures - Daily CBC monitor #Type 2 Diabetes Mellitus - Home insulin regimen resumed - BG check and SSI ACHS - Avoid hypoglycemia #GI/DVT Prophylaxis - PPI- Pepcid - Heparin SubQ - SCDs to bilateral lower extremities while in bed #Advance Care Planning - Disease education data, care plan, diagnoses, and prognosis were discussed w ith the patient at the bedside. Patient is a FULL code. Patient acknowledged understanding and agreed with current care plan. The high probability of a clinically significant, sudden or life threatening deterioration of the [multiple] system(s) required my full and direct attention, intervention and personal management. The aggregate critical care time was [60] minutes. This time is in addition to time spent performing reported procedures but includes the following: [x] Data Review and interpretation [x] Patient assessment and monitoring of vital signs [x] Documentation [x] Medication orders and management Disposition Plan: Transfer to Floor Total Time Spent with Patient (Minutes): 60 History Interval history: Patient seen and examined at the bedside. Awake, fully AAO, on RA, denied any pain nor any discomfort. off cardene gtt, VSS Hospitalist Physical - Constitutional Vitals: Temp Pulse Resp BP Pulse Ox 99.3 F 68 20 147/80 100 05/31/22 07:14 05/31/22 10:11 05/31/22 10:11 05/31/22 10:11 05/31/22 10:11 General appearance: Present: no acute distress, well-nourished - EENT Eyes: Present: PERRL, EOM intact ENT: hearing intact - Neck Neck: Present: normal ROM - Respiratory Respiratory effort: normal Respiratory: bilateral: diminished - Cardiovascular Rhythm: regular Heart Sounds: Present: S1 & S2 - Extremities Extremities: no ischemia, pulses intact, pulses symmetrical Peripheral Pulses: within normal limits - Abdominal General gastrointestinal: soft, non-distended, normal bowel sounds - Integumentary Integumentary: Present: warm, dry - Psychiatric Psychiatric: appropriate mood/affect, cooperative - Neurologic Neurologic: CNII-XII intact, moves all extremities - Allied Health Allied health notes reviewed: nursing, case management Results - Labs CBC & Chem 7: 05/31/22 04:18 05/31/22 04:18 Labs: Laboratory Last Values WBC 4.9 K/mm3 (4.5-11.0) 05/31/22 04:18 RBC 3.32 M/mm3 (3.65-5.03) L 05/31/22 04:18 Hgb 9.4 gm/dl (11.8-15.2) L 05/31/22 04:18 Hct 28.6 % (35.5-45.6) L 05/31/22 04:18 MCV 86 fl (84-94) 05/31/22 04:18 MCH 28 pg (28-32) 05/31/22 04:18 MCHC 33 % (32-34) 05/31/22 04:18 RDW 15.7 % (13.2-15.2) H 05/31/22 04:18 Plt Count 139 K/mm3 (140-440) L 05/31/22 04:18 Lymph % (Auto) 22.2 % (13.4-35.0) 05/31/22 04:18 Sanders % (Auto) 8.3 % (0.0-7.3) H 05/31/22 04:18 Eos % (Auto) 2.4 % (0.0-4.3) 05/31/22 04:18 Baso % (Auto) 0.5 % (0.0-1.8) 05/31/22 04:18 Lymph # (Auto) 1.1 K/mm3 (1.2-5.4) L 05/31/22 04:18 Sanders # (Auto) 0.4 K/mm3 (0.0-0.8) 05/31/22 04:18 Eos # (Auto) 0.1 K/mm3 (0.0-0.4) 05/31/22 04:18 Baso # (Auto) 0.0 K/mm3 (0.0-0.1) 05/31/22 04:18 Seg Neutrophils % 66.6 % (40.0-70.0) 05/31/22 04:18 Seg Neutrophils # 3.3 K/mm3 (1.8-7.7) 05/31/22 04:18 Sodium 140 mmol/L (137-145) 05/31/22 04:18 Potassium 4.0 mmol/L (3.6-5.0) D 05/31/22 04:18 Chloride 104.6 mmol/L (98-107) 05/31/22 04:18 Carbon Dioxide 19 mmol/L (22-30) L D 05/31/22 04:18 Anion Gap 20 mmol/L 05/31/22 04:18 BUN 73 mg/dL (9-20) H 05/31/22 04:18 Creatinine 8.2 mg/dL (0.8-1.3) H 05/31/22 04:18 Estimated GFR 8 ml/min 05/31/22 04:18 BUN/Creatinine Ratio 9 % 05/31/22 04:18 Glucose 166 mg/dL (75-100) H 05/31/22 04:18 POC Glucose 149 mg/dL (70-105) H 05/31/22 07:24 Calcium 8.2 mg/dL (8.4-10.2) L 05/31/22 04:18 Total Bilirubin 0.50 mg/dL (0.1-1.2) 05/29/22 17:24 AST 20 units/L (5-40) 05/29/22 17:24 ALT 19 units/L (7-56) 05/29/22 17:24 Alkaline Phosphatase 86 units/L (35-129) 05/29/22 17:24 Total Protein 8.2 g/dL (6.3-8.2) 05/29/22 17:24 Albumin 4.3 g/dL (3.9-5) 05/29/22 17:24 Albumin/Globulin Ratio 1.1 % 05/29/22 17:24 Urine Color Yellow (Yellow) 05/29/22 18:39 Urine Turbidity Hazy (Clear) 05/29/22 18:39 Urine pH 6.0 (5.0-7.0) 05/29/22 18:39 Ur Specific [place] 1.025 (1.003-1.030) 05/29/22 18:39 Urine Protein >500 mg/dL (Negative) 05/29/22 18:39 Urine Glucose (UA) Trace mg/dL (Negative) 05/29/22 18:39 Urine Ketones Negative mg/dL (Negative) 05/29/22 18:39 Urine Blood Large (Negative) A 05/29/22 18:39 Urine Nitrite Negative (Negative) 05/29/22 18:39 Ur Reducing Substances Not Reportable 05/29/22 18:39 Urine Bilirubin Negative (Negative) 05/29/22 18:39 Urine Ictotest Not Reportable 05/29/22 18:39 Urine Urobilinogen < 2.0 mg/dL (<2.0) 05/29/22 18:39 Ur Leukocyte Esterase Moderate (Negative) 05/29/22 18:39 Urine WBC (Auto) > 182.0 /HPF (0.0-6.0) H 05/29/22 18:39 Urine RBC (Auto) 115.0 /HPF (0.0-6.0) 05/29/22 18:39 U Epithel Cells (Auto) 2.0 /HPF (0-13.0) 05/29/22 18:39 Urine Bacteria (Auto) 4+ /HPF (Negative) 05/29/22 18:39 Urine WBC Clumps 3+ /HPF 05/29/22 18:39 Urine Yeast (Budding) 3+ /HPF 05/29/22 18:39 Hepatitis A IgM Ab Non-reactive (NonReactive) 05/30/22 10:46 Hep Bs Antigen Non-reactive (Negative) 05/30/22 10:46 Hep B Core IgM Ab Non-reactive (NonReactive) 05/30/22 10:46 Hepatitis C Antibody Non-reactive (NonReactive) 05/30/22 10:46 He/IV: Voiding Method Condom Catheter Active Medications - Current Medications Current Medications: Generic Name Dose Route Start Last Admin Trade Name Freq PRN Reason Stop Dose Admin Acetaminophen 650 mg 05/30/22 05:37 Acetaminophen 325 Mg Tab PO Q4H PRN Pain MILD(1-3)/Fever >100.5/CLARK Atorvastatin Calcium 40 mg 05/30/22 22:00 05/30/22 21:03 Atorvastatin 40 Mg Tab PO 40 mg QHS KRISTINA Administration Bumetanide 1 mg 05/30/22 22:00 05/31/22 09:26 Bumetanide 1 Mg Tab PO 1 mg BID KRISTINA Administration Carvedilol 25 mg 05/30/22 11:30 05/31/22 09:27 Carvedilol 25 Mg Tab PO 25 mg BID KRISTINA Administration Citalopram Hydrobromide 40 mg 05/31/22 10:00 05/31/22 09:27 Citalopram 20 Mg Tab PO 40 mg DAILY KRISTINA Administration Dextrose 0 ml 05/30/22 05:37 Dextrose 50% In Water (25gm) 50 Ml Syringe IV Q30MIN PRN Hypoglycemia Protocol Famotidine 20 mg 05/30/22 18:00 05/30/22 21:03 Famotidine 20 Mg Tab PO 20 mg QHS KRISTINA Administration Heparin Sodium (Porcine) 5,000 unit 05/30/22 06:00 05/31/22 08:20 Heparin 5,000 Unit/1 Ml Vial SUB-Q Not Given Q8HR [facility] Heparin Sodium (Porcine) 3,000 unit 05/30/22 09:00 Heparin 10,000 Units/10 Ml Vial IV EVELINA PRN hemodialysis Hydralazine HCl 10 mg 05/30/22 05:39 05/30/22 11:01 Hydralazine 20 Mg/1 Ml Inj IV 10 mg Q4H PRN Administration Blood Pressure Hydralazine HCl 50 mg 05/30/22 14:00 05/31/22 07:57 Hydralazine 25 Mg Tab PO 50 mg Q8HR [facility] Administration Sodium Chloride 100 mls @ 999 mls/hr 05/30/22 09:00 Nacl 0.9% IV EVELINA PRN Hypotension Nicardipine HCl 50 mg/ Sodium 250 mls @ 25 mls/hr 05/30/22 13:00 05/30/22 14:02 Chloride IV 0 mg/hr TITR KRISTINA 0 mls/hr Titration Protocol 5 MG/HR Insulin Glargine 20 units 05/31/22 10:00 05/31/22 09:25 Insulin Glargine 100 Units/Ml SUB-Q 20 units QAM [facility] Administration Insulin Human Lispro 0 unit 05/30/22 07:30 05/31/22 08:21 Insulin Lispro 100 Unit/Ml SUB-Q Not Given ACHS [facility] Protocol Isosorbide Mononitrate 120 mg 05/31/22 10:00 Isosorbide Mononitrate Er 60 Mg Tab PO QDAY [facility] Magnesium Hydroxide 30 ml 05/30/22 05:37 Magnesium Hydroxide (Mom) Oral Liqd Udc PO Q4H PRN Constipation Morphine Sulfate 2 mg 05/30/22 05:37 Morphine 2 Mg/1 Ml Inj IV Q4H PRN Pain, Moderate (4-6) Morphine Sulfate 4 mg 05/30/22 05:37 Morphine 4 Mg/1 Ml Inj IV Q4H PRN Pain , Severe (7-10) Nifedipine 90 mg 05/31/22 10:00 05/31/22 09:27 Nifedipine Xl 90 Mg Tab PO 90 mg QDAY [facility] Administration Ondansetron HCl 4 mg 05/30/22 05:37 Ondansetron 4 Mg/2 Ml Inj IV Q8H PRN Nausea And Vomiting Sevelamer Carbonate 1,600 mg 05/31/22 09:00 05/31/22 09:26 Sevelamer Carbonate 800 Mg Tab PO 1,600 mg TIDWM KRISTINA Administration Sodium Chloride 10 ml 05/30/22 10:00 05/31/22 09:33 Sodium Chloride 0.9% 10 Ml Flush Syringe IV 10 ml BID KRISTINA Administration Sodium Chloride 10 ml 05/30/22 05:37 Sodium Chloride 0.9% 10 Ml Flush Syringe IV PRN PRN LINE FLUSH Spironolactone 100 mg 05/31/22 10:00 Spironolactone 50 Mg Tab PO QDAY KRISTINA Nutrition/Malnutrition Assess - Dietary Evaluation Nutrition/Malnutrition Findings: Nutrition Notes Start: 05/30/22 15:09 Freq: Status: Active Protocol: Document 05/30/22 15:10 LIZETH (Rec: 05/30/22 15:21 LIZETH [id number]) Nutrition Notes Need for Assessment generated from: MD Order,dot etcher,MST, Education Initial or Follow up Assessment Current Diagnosis CKD (stage V CKD),Diabetes, Hypertension,Stroke Other Pertinent Diagnosis ESRD+HD, UTI, Hyperkalemia. Current Diet Cardiac/Consistent Carbohydrates Diet (since B ). Labs/Tests 05/30: K 5.3, Cl 108.3, CO2 11 , BUN 113, Crea 10.8, Glu 233. Pertinent Medications 05/30: Nutritionally unremarkable. Height 5 ft 6 in Weight 63.503 kg Matthews Body Weight (kg) 64.54 BMI 22.6 Intake Prior to Admission Good Weight change and time frame Pt states having, unintentionally, loss more than 34 lb recently. Weight Status Appropriate Subjective/Other Information RD consult for nutrition education dietary supplementation and risk of malnutrition assessments. No reports available on Pt's PO intake of meals at the time , will assess at F/U. Pt is on Room Air, O2 saturation @ 99%, according to Physical Assessment History notes. Pt has missing teeth, according to Physical Assessment History notes. Pt shows no signs of concern for risk of malnutrition at the time, according to Physical Assessment History notes. Pt still in critical condition , not a candidate for Nutrition Education at the time, will assess feasibility on F/U. Percent of energy/protein needs met: Prescribed Cardiac/Consistent Carbohydrates Diet provides for energy/protein needs (1, 977 Kcal/86 g) during LOS. Burn Absent Trauma Absent GI Symptoms Nausea Food Allergy No Skin Integrity/Comment Assessment WNL. 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 No Is Patient Ambulatory and/or Out of Bed Yes REE-([facility]-ambulatory/OOB) [ 1862.614 NUTR.MSJOOB] Kcal/Kg value to use for calculation 26 Approximate Energy Requirements Using 1651 kcal/Kg Calculation Used for Recommendations Kcal/kg Additional Notes Protein: 0.8-1 g/Kg ABW; 51-64 g/day. Fluids: 1 ml/Kcal, or as per MD. Nutrition Intervention Change Diet Order: Continue Cardiac/Consistent Carbohydrates Diet. Follow-Up By: 06/06/22 Additional Comments Nutrition education will be provided at F/U, if feasible. Continue monitoring food tolerance, %PO intake of meals , and BM. <EDI ARAGON - Last Filed: 06/01/22 07:29> Assessment and Plan Assessment and plan: I saw and evaluated the patient. I agree with the findings and the plan of care as documented in the Nurse Practitioner's~note, with the following corrections and additions. Hospitalist Physical - Constitutional Vitals: Temp Pulse Resp BP Pulse Ox 98.1 F 69 17 148/96 98 05/31/22 15:15 06/01/22 05:21 05/31/22 20:00 06/01/22 05:21 05/31/22 20:00 Results - Labs CBC & Chem 7: 06/01/22 03:57 06/01/22 03:57 Labs: Laboratory Last Values WBC 4.7 K/mm3 (4.5-11.0) 06/01/22 03:57 RBC 3.16 M/mm3 (3.65-5.03) L 06/01/22 03:57 Hgb 8.9 gm/dl (11.8-15.2) L 06/01/22 03:57 Hct 27.7 % (35.5-45.6) L 06/01/22 03:57 MCV 88 fl (84-94) 06/01/22 03:57 MCH 28 pg (28-32) 06/01/22 03:57 MCHC 32 % (32-34) 06/01/22 03:57 RDW 15.8 % (13.2-15.2) H 06/01/22 03:57 Plt Count 117 K/mm3 (140-440) L 06/01/22 03:57 Lymph % (Auto) 22.2 % (13.4-35.0) 05/31/22 04:18 Sanders % (Auto) 8.3 % (0.0-7.3) H 05/31/22 04:18 Eos % (Auto) 2.4 % (0.0-4.3) 05/31/22 04:18 Baso % (Auto) 0.5 % (0.0-1.8) 05/31/22 04:18 Lymph # (Auto) 1.1 K/mm3 (1.2-5.4) L 05/31/22 04:18 Sanders # (Auto) 0.4 K/mm3 (0.0-0.8) 05/31/22 04:18 Eos # (Auto) 0.1 K/mm3 (0.0-0.4) 05/31/22 04:18 Baso # (Auto) 0.0 K/mm3 (0.0-0.1) 05/31/22 04:18 Seg Neutrophils % 66.6 % (40.0-70.0) 05/31/22 04:18 Seg Neutrophils # 3.3 K/mm3 (1.8-7.7) 05/31/22 04:18 Sodium 141 mmol/L (137-145) 06/01/22 03:57 Potassium 4.3 mmol/L (3.6-5.0) 06/01/22 03:57 Chloride 106.9 mmol/L (98-107) 06/01/22 03:57 Carbon Dioxide 20 mmol/L (22-30) L 06/01/22 03:57 Anion Gap 18 mmol/L 06/01/22 03:57 BUN 80 mg/dL (9-20) H 06/01/22 03:57 Creatinine 9.2 mg/dL (0.8-1.3) H 06/01/22 03:57 Estimated GFR 7 ml/min 06/01/22 03:57 BUN/Creatinine Ratio 9 % 06/01/22 03:57 Glucose 163 mg/dL (75-100) H 06/01/22 03:57 POC Glucose 134 mg/dL (70-105) H 06/01/22 01:37 Calcium 8.1 mg/dL (8.4-10.2) L 06/01/22 03:57 Phosphorus 6.60 mg/dL (2.5-4.5) H 06/01/22 03:57 Total Bilirubin 0.50 mg/dL (0.1-1.2) 05/29/22 17:24 AST 20 units/L (5-40) 05/29/22 17:24 ALT 19 units/L (7-56) 05/29/22 17:24 Alkaline Phosphatase 86 units/L (35-129) 05/29/22 17:24 Total Protein 8.2 g/dL (6.3-8.2) 05/29/22 17:24 Albumin 4.3 g/dL (3.9-5) 05/29/22 17:24 Albumin/Globulin Ratio 1.1 % 05/29/22 17:24 Urine Color Yellow (Yellow) 05/29/22 18:39 Urine Turbidity Hazy (Clear) 05/29/22 18:39 Urine pH 6.0 (5.0-7.0) 05/29/22 18:39 Ur Specific [place] 1.025 (1.003-1.030) 05/29/22 18:39 Urine Protein >500 mg/dL (Negative) 05/29/22 18:39 Urine Glucose (UA) Trace mg/dL (Negative) 05/29/22 18:39 Urine Ketones Negative mg/dL (Negative) 05/29/22 18:39 Urine Blood Large (Negative) A 05/29/22 18:39 Urine Nitrite Negative (Negative) 05/29/22 18:39 Ur Reducing Substances Not Reportable 05/29/22 18:39 Urine Bilirubin Negative (Negative) 05/29/22 18:39 Urine Ictotest Not Reportable 05/29/22 18:39 Urine Urobilinogen < 2.0 mg/dL (<2.0) 05/29/22 18:39 Ur Leukocyte Esterase Moderate (Negative) 05/29/22 18:39 Urine WBC (Auto) > 182.0 /HPF (0.0-6.0) H 05/29/22 18:39 Urine RBC (Auto) 115.0 /HPF (0.0-6.0) 05/29/22 18:39 U Epithel Cells (Auto) 2.0 /HPF (0-13.0) 05/29/22 18:39 Urine Bacteria (Auto) 4+ /HPF (Negative) 05/29/22 18:39 Urine WBC Clumps 3+ /HPF 05/29/22 18:39 Urine Yeast (Budding) 3+ /HPF 05/29/22 18:39 Hepatitis A IgM Ab Non-reactive (NonReactive) 05/30/22 10:46 Hep Bs Antigen Non-reactive (Negative) 05/30/22 10:46 Hep B Core IgM Ab Non-reactive (NonReactive) 05/30/22 10:46 Hepatitis C Antibody Non-reactive (NonReactive) 05/30/22 10:46 He/IV: Voiding Method Condom Catheter Active Medications - Current Medications Current Medications: Generic Name Dose Route Start Last Admin Trade Name Freq PRN Reason Stop Dose Admin Acetaminophen 650 mg 05/30/22 05:37 Acetaminophen 325 Mg Tab PO Q4H PRN Pain MILD(1-3)/Fever >100.5/CLARK Atorvastatin Calcium 40 mg 05/30/22 22:00 05/31/22 22:56 Atorvastatin 40 Mg Tab PO 40 mg QHS KRISTINA Administration Bumetanide 1 mg 05/30/22 22:00 05/31/22 22:57 Bumetanide 1 Mg Tab PO Not Given BID KRISTINA Carvedilol 25 mg 05/30/22 11:30 05/31/22 22:03 Carvedilol 25 Mg Tab PO Not Given BID KRISTINA Citalopram Hydrobromide 40 mg 05/31/22 10:00 05/31/22 09:27 Citalopram 20 Mg Tab PO 40 mg DAILY KRISTINA Administration Dextrose 0 ml 05/30/22 05:37 Dextrose 50% In Water (25gm) 50 Ml Syringe IV Q30MIN PRN Hypoglycemia Protocol Epoetin Jb-epbx 10,000 unit 06/01/22 00:30 Epoetin Jb-Epbx 10,000 Unit/1 Ml Vial SUB-Q EVELINA PRN hemodialysis Famotidine 20 mg 05/30/22 18:00 05/31/22 22:56 Famotidine 20 Mg Tab PO 20 mg QHS KRISTINA Administration Heparin Sodium (Porcine) 5,000 unit 05/30/22 06:00 06/01/22 05:48 Heparin 5,000 Unit/1 Ml Vial SUB-Q Not Given Q8HR [facility] Heparin Sodium (Porcine) 3,000 unit 05/30/22 09:00 Heparin 10,000 Units/10 Ml Vial IV EVELINA PRN hemodialysis Hydralazine HCl 10 mg 05/30/22 05:39 05/30/22 11:01 Hydralazine 20 Mg/1 Ml Inj IV 10 mg Q4H PRN Administration Blood Pressure Hydralazine HCl 50 mg 05/30/22 14:00 06/01/22 05:21 Hydralazine 25 Mg Tab PO 50 mg Q8HR [facility] Administration Sodium Chloride 100 mls @ 999 mls/hr 05/30/22 09:00 Nacl 0.9% IV EVELINA PRN Hypotension Sodium Chloride 100 mls @ 999 mls/hr 06/01/22 00:30 Nacl 0.9% IV EVELINA PRN Hypotension Insulin Glargine 15 units 05/31/22 14:36 Insulin Glargine 100 Units/Ml SUB-Q QAM [facility] Insulin Human Lispro 0 unit 05/30/22 07:30 05/31/22 22:54 Insulin Lispro 100 Unit/Ml SUB-Q Not Given ACHS [facility] Protocol Isosorbide Mononitrate 120 mg 05/31/22 10:00 05/31/22 11:43 Isosorbide Mononitrate Er 60 Mg Tab PO 120 mg QDAY [facility] Administration Magnesium Hydroxide 30 ml 05/30/22 05:37 Magnesium Hydroxide (Mom) Oral Liqd Udc PO Q4H PRN Constipation Morphine Sulfate 2 mg 05/30/22 05:37 Morphine 2 Mg/1 Ml Inj IV Q4H PRN Pain, Moderate (4-6) Nifedipine 90 mg 05/31/22 10:00 05/31/22 09:27 Nifedipine Xl 90 Mg Tab PO 90 mg QDAY [facility] Administration Ondansetron HCl 4 mg 05/30/22 05:37 Ondansetron 4 Mg/2 Ml Inj IV Q8H PRN Nausea And Vomiting Sevelamer Carbonate 1,600 mg 05/31/22 09:00 05/31/22 17:58 Sevelamer Carbonate 800 Mg Tab PO 1,600 mg TIDWM [facility] Administration Sodium Chloride 10 ml 05/30/22 10:00 05/31/22 22:57 Sodium Chloride 0.9% 10 Ml Flush Syringe IV 10 ml BID KRISTINA Administration Sodium Chloride 10 ml 05/30/22 05:37 Sodium Chloride 0.9% 10 Ml Flush Syringe IV PRN PRN LINE FLUSH Spironolactone 100 mg 05/31/22 10:00 05/31/22 11:53 Spironolactone 50 Mg Tab PO Not Given QDAY KRISTINA Nutrition/Malnutrition Assess - Dietary Evaluation Nutrition/Malnutrition Findings: Nutrition Notes Start: 05/30/22 15 :09 Freq: Status: Active Protocol: Document 05/30/22 15:10 LIZETH (Rec: 05/30/22 15:21 LIZETH [id number]) Nutrition Notes Need for Assessment generated from: MD Order,dot etcher,MST, Education Initial or Follow up Assessment Current Diagnosis CKD (stage V CKD),Diabetes, Hypertension,Stroke Other Pertinent Diagnosis ESRD+HD, UTI, Hyperkalemia. Current Diet Cardiac/Consistent Carbohydrates Diet (since B ). Labs/Tests 05/30: K 5.3, Cl 108.3, CO2 11 , BUN 113, Crea 10.8, Glu 233. Pertinent Medications 05/30: Nutritionally unremarkable. Height 5 ft 6 in Weight 63.503 kg Matthews Body Weight (kg) 64.54 BMI 22.6 Intake Prior to Admission Good Weight change and time frame Pt states having, unintentionally, loss more than 34 lb recently. Weight Status Appropriate Subjective/Other Information RD consult for nutrition education dietary supplementation and risk of malnutrition assessments. No reports available on Pt's PO intake of meals at the time , will assess at F/U. Pt is on Room Air, O2 saturation @ 99%, according to Physical Assessment History notes. Pt has missing teeth, according to Physical Assessment History notes. Pt shows no signs of concern for risk of malnutrition at the time, according to Physical Assessment History notes. Pt still in critical condition , not a candidate for Nutrition Education at the time, will assess feasibility on F/U. Percent of energy/protein needs met: Prescribed Cardiac/Consistent Carbohydrates Diet provides for energy/protein needs (1, 977 Kcal/86 g) during LOS. Burn Absent Trauma Absent GI Symptoms Nausea Food Allergy No Skin Integrity/Comment Assessment WNL. 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 No Is Patient Ambulatory and/or Out of Bed Yes REE-([facility]-ambulatory/OOB) [ 1862.614 NUTR.MSJOOB] Kcal/Kg value to use for calculation 26 Approximate Energy Requirements Using 1651 kcal/Kg Calculation Used for Recommendations Kcal/kg Additional Notes Protein: 0.8-1 g/Kg ABW; 51-64 g/day. Fluids: 1 ml/Kcal, or as per MD. Nutrition Intervention Change Diet Order: Continue Cardiac/Consistent Carbohydrates Diet. Follow-Up By: 06/06/22 Additional Comments Nutrition education will be provided at F/U, if feasible. Continue monitoring food tolerance, %PO intake of meals , and BM.
[2022-05-31] MEDS: SPIRONOLACTONE 50 MG TAB PO SCH (11:53)
--- NOTE | 2022-05-31 14:58 | Consultation ---
DATE OF CONSULTATION: 05/30/2022 PULMONARY CRITICAL CARE CONSULT NOTE CONSULTING PHYSICIAN: Dr. Grubbs. REASON FOR CONSULTATION: Hypertensive emergency, altered mental status. CHIEF COMPLAINT AND HISTORY OF PRESENT ILLNESS: The patient is a now 51-year-old -[place] male, obese, with a past medical history of end-stage renal disease, on dialysis on Mondays, Wednesdays, Fridays as well as hypertension and diabetes, who presented to the Emergency Room complaining of generalized body aches and muscle cramps. He mentioned he had missed his dialysis for about 6 days, missed about 2 or 3 sessions. He denied any chest pains. He has had some mild shortness of breath. He denied cough, nausea, vomiting or abdominal pain. He denied any headache or dizziness or diaphoresis at the time. He was evaluated in the Emergency Room, found to have an elevated blood pressure, was given IV hydralazine and ultimately transferred to the dialysis suite for a semi-emergent hemodialysis. While there, a rapid response was called. The patient was undergoing dialysis and he suddenly became unresponsive. His systolic blood pressure was highest at 220s. They report that he never lost a pulse. It was a transient loss of consciousness. He remained, however, with extreme hypertension, initially was difficult to arise, by the time I responded to the rapid response, he was alert, he was crying. He seemed emotionally disturbed. He denied any chest pains. He denied fevers or chills prior. He had some dry heaves, but no overt vomiting or aspiration. Dialysis had been stopped at that time, apparently about 1.5 liters had been removed. A decision was therefore made to transfer him to the intensive care unit for initiation of an IV Cardene drip. With regards to tobacco use/abuse history, that history is unknown at this time. This really is as much of the history of presentation as I have. PAST MEDICAL HISTORY: Again, end-stage renal disease, on dialysis, diabetes, hypertension, he is obese and has a history of cerebrovascular accident. PAST SURGICAL HISTORY: He has had open heart surgery for an aortic valve repair and he has had LASIK surgery for diabetic retinopathy. MEDICATIONS: Medications he was on at the time I stopped by to see him, according to the medication physician record included the following: Tylenol 650 mg p.o. every 4 hours p.r.n. mild pain or fevers, atorvastatin 40 mg p.o. at bedtime, Bumex 1 mg p.o. b.i.d., Coreg 25 mg p.o. b.i.d., Rocephin 1 gram IV daily, Celexa 40 mg p.o. daily, heparin 5000 units subcutaneous every 8 hours, Apresoline 10 mg IV every 4 hours p.r.n. elevated blood pressure as well as 50 mg p.o. every 8 hours scheduled, Lantus insulin 20 units subcutaneous every morning as well as insulin via sliding scale, Imdur 120 mg p.o. daily, morphine sulfate 2 mg IV every 4 hours p.r.n. moderate pain and 4 mg IV every 4 hours p.r.n. severe pain, Procardia 90 mg p.o. daily, Zofran 4 mg IV every 8 hours p.r.n. nausea and vomiting and Aldactone 100 mg p.o. daily. ALLERGIES: No known drug allergies. DIET: Obese gentleman. Denies acute weight loss or gain in the preceding few weeks to months. FAMILY AND SOCIAL HISTORY: Lives in the community. No current alcohol, tobacco or illicit drug use or abuse. Remote history is unknown. FAMILY HISTORY: Otherwise unknown. REVIEW OF SYSTEMS: Difficult to obtain secondary to the patient's medical and mental condition at the time of evaluation. Since he has been here, no gross hematochezia or melena, no gross hematuria, no hematemesis, no hemoptysis, no witnessed grand mal seizures. Review of systems is otherwise unobtainable or as in body of history above. PHYSICAL EXAMINATION: VITAL SIGNS: At presentation in the Emergency Room and since he has been afebrile; at presentation, temperature of 98 degrees Fahrenheit with a pulse of 63, respiratory rate of 18 and blood pressure of 200/121, O2 sats were 100%; however, that was on 2 liters nasal cannula at the time I saw him. When he showed up, he was on room air. GENERAL: He is a middle-aged male. Normocephalic, atraumatic. Resting in bed with mildly increased respiratory effort at rest. HEAD, EYES, EARS, NOSE AND THROAT: Anicteric. No conjunctival erythema. Oropharynx was moist. NECK: No gross jugular venous distention, no thyromegaly. Grossly, there were no palpable lymph nodes in the supraclavicular or submandibular lymph node chains. LUNGS: Auscultation of both lung pena significant for posterior inspiratory rales in the bases. No wheezing. HEART: Sounds 1 and 2 were heard, regular rate and rhythm at the time of my evaluation without overt rubs or murmurs. He did have a right upper anterior chest wall vascular catheter in place. ABDOMEN: Soft, full, bowel sounds are positive, nontender, no palpable hepatosplenomegaly. EXTREMITIES: Without overt digital clubbing or cyanosis, no pedal edema. Pedal pulses were 2+ bilaterally. NEUROLOGIC: Pupils were equal, round, about 4 mm, reactive to light. Extraocular muscle movements were intact. He moved all extremities. SKIN: Normal turgor in the areas examined without overt cellulitis or rash. Please see the wound care nurses' notes for full description of his skin. PSYCHIATRIC: His mood and affect were very anxious. He was crying at the time of my initial evaluation, appeared confused, did not have intact judgment and insight. LABORATORY DATA: From my review are as follows: Admission white cell count 4900, hemoglobin 10.3, hematocrit 32.4, platelet count 137. No manual differential. Serum sodium was 139, potassium 5.3, chloride 108, bicarbonate 11, BUN 113, creatinine 10.8, glucose 233. Liver function tests within normal limits. Urinalysis showed large blood, moderate leukocyte esterase and greater than 182 white cells per high power field. Hepatitis screen is nonreactive. No microbiology studies for my review. DIAGNOSTIC DATA: Chest x-ray shows gross cardiomegaly, median sternotomy wires in place, mildly increased interstitial markings in particular in the right lung base medially. He does have cardiomegaly. Right Vas-Cath tip is in the distal SVC/right IJ junction. No gross pneumothorax, no gross bony fractures. A 2D echo done earlier this year showed a low systolic ejection fraction of 40-45%, right ventricular systolic pressures of 57 mmHg. ASSESSMENT: 1. Acute toxic metabolic encephalopathy, presumably secondary to #2. 2. Hypertensive emergency. 3. End-stage renal disease, on dialysis. 4. History of diabetes. 5. Hyperkalemia, mild. 6. Urinary tract infection. 7. Medication noncompliance and medical treatment noncompliance. 8. Anemia that is normocytic. 9. Metabolic acidosis, normal anion gap. PLAN: I do agree with current interventions including the empiric Rocephin for treatment of a possible UTI. Urine cultures will be followed and addressed as necessary. For now, he will be started on a Cardene drip and transferred to the intensive care unit for closer observation. Once his blood pressure is under better control, a CT scan of his brain will be done and addressed. I will defer to the boiler coverer helper for dialysis prescription. I believe the hyperkalemia would have been corrected with dialysis. Supplemental oxygen will be weaned to keep sats greater than or equal to about 90%. Aspiration precautions will be maintained. His oral antihypertensive medications will be reintroduced and he will be weaned off the Cardene drip. We will target initially a systolic blood pressure above 165-170 mmHg. He is appropriately on DVT prophylaxis. He will be placed on GI prophylaxis. Flu and pneumonia vaccination will be addressed per protocol. Thank you very much for the consult. I will follow along and make further recommendations as picture progresses/becomes clearer. Of note, better medication compliance and healthcare compliance will be counseled once his mental status is better. At this time, I have spent about 35-40 minutes of critical care time without overlap and excluding any procedural time that may be necessary. He is critically ill, now on life-sustaining interventions including the vasoactive medication, the Cardene drip, at very high risk of from cardiopulmonary and renal system and neurologic system decompensation. TID: [id number] RECEIPT: [id number] GINA/LOUIE/LEYDI/SILVIA
[2022-05-31] MEDS: FAMOTIDINE 20 MG TAB PO SCH (22:56)
[2022-06-01] MEDS ORDERED: EPOETIN ALFA-EPBX 10,000 UNIT/1 ML VIAL SUB-Q PRN (00:30)
[2022-06-01] MEDS ORDERED: SODIUM CHLORIDE 0.9% 100 ML IV PRN (00:30)
[2022-06-01 04:29] LABS: Hematocrit 27.7 % (35.5-45.6); Hemoglobin 8.9 gm/dl (11.8-15.2); Mean Corpuscular HGB Conc 32 % (32-34); Mean Corpuscular Volume 88 fl (84-94); Platelet Count 117 K/mm3 (140-440); Red Blood Count 3.16 M/mm3 (3.65-5.03); Red Cell Distribution Width 15.8 % (13.2-15.2)
[2022-06-01 04:43] LABS: Calcium 8.1 mg/dL (8.4-10.2)
[2022-06-01] MEDS: hydrALAZINE 25 MG TAB PO SCH ×2 (05:21→13:26)
[2022-06-01] MEDS: HEPARIN 5,000 UNIT/1 ML VIAL SUB-Q SCH ×2 (05:48→13:28)
[2022-06-01] MEDS: INSULIN LISPRO 100 UNIT/ML SUB-Q SCH ×2 (07:30→11:30)
--- NOTE | 2022-06-01 08:35 | Discharge Summary ---
Providers - Providers Date of Admission: 05/30/22 05:37 Attending physician: EDI ARAGON MD 05/30/22 05:07 Consult to Physician [CONS] Urgent Comment: Dr. Schneider spoke with Dr. Coleman @ 0509 Consulting Provider: SHARMILA COLEMAN Physician Instructions: Reason For Exam: esrd 05/30/22 05:37 Consult to Dietitian/Nutrition [CONS] Routine Physician Instructions: Reason For Exam: Reason for Consult: Diet education 05/30/22 08:53 Consult to Physician [CONS] Routine Comment: Consulting Provider: SHARMILA COLEMAN Physician Instructions: Reason For Exam: ESRD 05/30/22 12:30 Consult to Physician [CONS] Routine Comment: Consulting Provider: JONAH NIELSEN Physician Instructions: Reason For Exam: CCM, Hypertensive Emergency 05/31/22 13:34 Physical Therapy Evaluation and Treat [CONS] Routine Comment: Reason For Exam: Debility Primary care physician: SERVICE EMPLOYEE Hospitalization Reason for admission: Hypertensive emergency Condition: Stable Hospital course: This is a 51-year-old male with known past medical history of ESRD on HD (M,W,F), HTN, DM, and medical noncompliance initially admitted to the floor for fluid overload requiring HD after he missed HD for a week. Patient was transferred to ICU for hypertensive emergency requiring cardene gtt. Hospital Course to Date: 05/31: Patient is off cardene gtt, VSS this am. Continue current antihypertensive therapy, PRN hydralazine to maintain SBP less than 160. Continue HD per Nephro. Patient is stable for transfer to the floor. 06/01: Patient seen and examined today blood pressure much better. I did discuss with him about compliance with his medications as documented but he still has some medicines from 2020 at home he says now that he recently filled his medications. However yesterday had told me that he stopped taking his medication 2 weeks ago from normal results. We did provide extensive counseling of 30 minutes about importance of compliance with medication and the risk of noncompliance including but not limited to stroke, cardiac arrest on multiple organ failure and ultimately Assessment and Plan #Hypertensive Emergency #Noncompliant with medications - Code met on the floor, SBP in the 200s during HD s/p cardene gtt - Per patient he stopped taking her medications 2 weeks ago, reason not reported - VSS this am - Continue current antihypertensive regimen - Continue blood pressure monitor per protocol - PRN Hydralazine to maintain SBP less than 160 - CCM is also following #Hypertensive Encephalopathy - Brief loss consciousness during code met - Most like due to high BP - CT head/brain reviewed with no acute abnormality. See report for details - s/p Cardene gtt, BP improved and mentation normalized - Tight BP control, maintain SBP less than 160 - Maintenance of sleep-wake cycle #End-Stage Renal Disease(ESRD) on HD #Hyperkalemia #Medical Noncompliance - Patient missed HD for a week, reason not reported - Nephrology on consult, appreciated recommendation - HD aborted yesterday due to hypertensive emergency - K improved this am - Continue HD per Nephro - Strict intake and output - Avoid nephrotoxic medications; Renally dose medications - Monitor and replace electrolytes as needed #Urinary Tract Infection(UTI) - UA with pyuria, afebrile, and wbcs wnr - Urine culture pending - s/p X2 dose of IV rocephin - F/U on cultures - Daily CBC monitor #Type 2 Diabetes Mellitus - Home insulin regimen resumed - BG check and SSI ACHS - Avoid hypoglycemia #GI/DVT Prophylaxis - PPI- Pepcid - Heparin SubQ - SCDs to bilateral lower extremities while in bed #Advance Care Planning - Disease education data, care plan, diagnoses, and prognosis were discussed with the patient at the bedside. Patient is a FULL code. Patient acknowledged understanding and agreed with current care plan. Disposition: HOME / SELF CARE / HOMELESS Final Discharge Diagnosis (Prints w/discharge instructions): Hypertensive emergency with associated hypertensive encephalopathy Time spent for discharge: 35 mins Core Measure Documentation - Palliative Care Palliative Care/ Comfort Measures: Not Applicable - Core Measures Any of the following diagnoses?: none Exam - Physical Exam Narrative exam: VITAL SIGNS: Reviewed. GENERAL: The patient appears normally developed, Vital signs as documented. HEAD: No signs of head trauma. EYES: Pupils are equal. Extraocular motions intact. EARS: Hearing grossly intact. MOUTH: Oropharynx is normal. NECK: No adenopathy, no JVD. CHEST: Chest with clear breath sounds bilaterally. No wheezes, rales, or rhonchi. CARDIAC: Regular rate and rhythm. S1 and S2, without murmurs, gallops, or rubs. VASCULAR: No Edema. Peripheral pulses normal and equal in all extremities. ABDOMEN: Soft, non tender and non distended. No rebound or guarding, and no masses palpated. Bowel Sounds normal. MUSCULOSKELETAL: Good range of motion of all major joints. Extremities without clubbing, cyanosis or edema. NEUROLOGIC EXAM: Alert and oriented x 3 No focal sensory or strength deficits. Speech normal. Follows commands. PSYCHIATRIC: Mood normal. SKIN: detail exam as documented in skin assessment - Constitutional Vitals: Temp Pulse Resp BP Pulse Ox 98.1 F 69 17 148/96 98 05/31/22 15:15 06/01/22 05:21 05/31/22 20:00 06/01/22 05:21 05/31/22 20:00 Plan Activity: advance as tolerated, fall precautions Diet: renal Special Instructions: record daily weights, record daily BP diary Plan of Treatment: Please follow-up with your regular doctors in 1 week. Is important to be compliant with your blood pressure medications. Follow up with: ANIKET PETERSEN MD [Primary Care Provider] - 3-5 Days SHARMILA COLEMAN MD [Staff Physician] - 7 Days
[2022-06-01] MEDS: SEVELAMER CARBONATE 800 MG TAB PO SCH ×2 (08:51→13:01)
--- NOTE | 2022-06-01 11:33 | Progress Note ---
Assessment and Plan Acute toxic metabolic encephalopathy Hypertensive emergency End-stage renal disease, on dialysis DM II Hyperkalemia Urinary tract infection Medication noncompliance and medical treatment noncompliance Anemia that is normocytic Metabolic acidosis, normal anion gap - adjusting oral antihypertensives but off Cardene drip - prn supplemental oxygen to keep O2 sats > 90% - prn bronchodilators (ANUP & LABA) with pulm hygiene per RT - continue to avoid nephrotoxins, renally dose all medications - mobility protocols to prevent pressure ulcers - PT/OT as tolerated - Wound care per RN/WCT - continue accuchecks with glycemic control per SSI for target blood glucose < 180 mg/dL - tobacco abstinence strongly counseled at the bedside - home oxygen evaluation at discharge - GI & VTE prophylaxis - Flu & pneumovax per protocol - prn analgesia per pain score - continue other care per attending / other consultants ... re-evaluate in am & prn Subjective Date of service: 06/01/22 Principal diagnosis: AMS; HTNsive emergency; ESRD on dialysis; DM II; UTI; Hyperkalemia Interval history: Patient is seen today for: Acute toxic metabolic encephalopathy; Hypertensive emergency; ESRD on dialysis; DM II; UTI; Hyperkalemia; Medication noncompliance and medical treatment noncompliance; Anemia; Metabolic acidosis Seen and examined at bedside; 24hour events reviewed; nursing and respiratory care staff consulted; no adverse overnight events reported to me; resting in bed; denies acute chest pain or SOB; Objective Vital Signs - 12hr 06/01/22 06/01/22 05:21 09:30 Temperature 98.0 F Pulse Rate 69 67 Respiratory 18 Rate Blood Pressure 148/96 162/90 O2 Sat by Pulse 100 Oximetry [ Throughout] Constitutional: no acute distress Eyes: non-icteric ENT: oropharynx moist Neck: supple, no lymphadenopathy, no JVD Effort: normal Ascultation: Right: rhonchi (scant in bases) Percussion: Bilateral: not dull Cardiovascular: regular rate and rhythm Gastrointestinal: normoactive bowel sounds, soft, non-tender, non-distended (protuberant) Integumentary: normal Extremities: no cyanosis, no edema, pulses normal, no ischemia or petechiae Neurologic: non-focal exam, pupils equal and round, CN II-XII normal, motor strength normal and Psychiatric: mood appropriate, affect normal CBC and BMP: 06/01/22 03:57 06/01/22 03:57 Abnormal lab findings: Abnormal Labs 05/29/22 05/29/22 05/29/22 17:24 17:24 18:39 RBC Hgb 10.3 L Hct 32.4 L RDW 15.8 H Plt Count 137 L Hopkins % (Auto) Lymph # (Auto) Potassium 5.3 H Chloride 108.3 H Carbon Dioxide 11 L BUN 113 H Creatinine 10.8 H Glucose 233 H POC Glucose Calcium Phosphorus Urine Blood Large A Urine WBC (Auto) > 182.0 H 05/30/22 05/30/22 05/30/22 12:09 12:51 21:08 RBC Hgb Hct RDW Plt Count Hopkins % (Auto) Lymph # (Auto) Potassium Chloride Carbon Dioxide BUN Creatinine Glucose POC Glucose 160 H 128 H 148 H Calcium Phosphorus Urine Blood Urine WBC (Auto) 05/31/22 05/31/22 05/31/22 04:18 04:18 07:24 RBC 3.32 L Hgb 9.4 L Hct 28.6 L RDW 15.7 H Plt Count 139 L Hopkins % (Auto) 8.3 H Lymph # (Auto) 1.1 L Potassium Chloride Carbon Dioxide 19 L D BUN 73 H Creatinine 8.2 H Glucose 166 H POC Glucose 149 H Calcium 8.2 L Phosphorus Urine Blood Urine WBC (Auto) 05/31/22 05/31/22 05/31/22 11:36 17:10 21:53 RBC Hgb Hct RDW Plt Count Hopkins % (Auto) Lymph # (Auto) Potassium Chloride Carbon Dioxide BUN Creatinine Glucose POC Glucose 176 H 139 H 109 H Calcium Phosphorus Urine Blood Urine WBC (Auto) 06/01/22 06/01/22 06/01/22 01:37 03:57 03:57 RBC 3.16 L Hgb 8.9 L Hct 27.7 L RDW 15.8 H Plt Count 117 L Hopkins % (Auto) Lymph # (Auto) Potassium Chloride Carbon Dioxide 20 L BUN 80 H Creatinine 9.2 H Glucose 163 H POC Glucose 134 H Calcium 8.1 L Phosphorus 6.60 H Urine Blood Urine WBC (Auto) 06/01/22 07:44 RBC Hgb Hct RDW Plt Count Hopkins % (Auto) Lymph # (Auto) Potassium Chloride Carbon Dioxide BUN Creatinine Glucose POC Glucose 147 H Calcium Phosphorus Urine Blood Urine WBC (Auto) Allied health notes reviewed: nursing
--- NOTE | 2022-06-01 12:54 | Progress Note ---
Assessment and Plan 1. ESRD: Patient is on maintenance hemodialysis, MWF schedule. Last outpatient HD 05/17. Hemodialysis: 05/30, 06/01. 2. FEN: Hyperkalemia, HD today. Anion-gap metabolic acidosis, 2/2 missed HD, on HD, monitor. UF with HD as tolerated. Monitor lytes and volume status. 3. Uncontrolled Hypertension: 2/2 medication non-compliance. Patient still has meds filled in 2019. Counseled to take meds as prescribed. Continue home meds and adjust as needed. Monitor BP. 4. DM-2: Monitor. 5. Normochromic Anemia, POA: 2/2 ESRD. Epogen with HD as needed. Outpatient HD chair at [facility]. Subjective: Patient was seen and examined at the bedside. Doing ok. 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 Ext: no edema Hemodialysis access: R IJ tunnel catheter Subjective Date of service: 06/01/22 Principal diagnosis: AMS; HTNsive emergency; ESRD on dialysis; DM II; UTI; Hyperkalemia Objective - Vital Signs Vital signs: Vital Signs - 12hr 06/01/22 06/01/22 06/01/22 05:21 09:30 09:40 Temperature 98.0 F Pulse Rate 69 67 67 Respiratory 18 Rate Blood Pressure 148/96 162/90 156/103 O2 Sat by Pulse 100 Oximetry [ Throughout] 06/01/22 06/01/22 06/01/22 09:45 10:00 10:15 Temperature Pulse Rate 66 67 68 Respiratory Rate Blood Pressure 163/99 168/99 166/103 O2 Sat by Pulse Oximetry [ Throughout] 06/01/22 06/01/22 06/01/22 10:30 10:45 11:00 Temperature Pulse Rate 68 69 69 Respiratory Rate Blood Pressure 169/100 172/94 176/102 O2 Sat by Pulse Oximetry [ Throughout] 06/01/22 11:15 Temperature Pulse Rate 639 H Respiratory Rate Blood Pressure 180/99 O2 Sat by Pulse Oximetry [ Throughout] - Lab 06/01/22 03:57 06/01/22 03:57 Most recent lab results Calcium 8.1 mg/dL (8.4-10.2) L 06/01/22 03:57 Phosphorus 6.60 mg/dL (2.5-4.5) H 06/01/22 03:57 Medications & Allergies - Medications Allergies/Adverse Reactions: Allergies No Known Allergies Allergy (Verified 05/30/22 15:01) Home Medications: Home Medications Medication Instructions Recorded Confirmed Last Taken Type AtorvaSTATin [Lipitor] 40 mg PO QHS 05/11/22 05/30/22 05/16/22 History Bumetanide [Bumex 1 mg tab] 1 mg PO BID 05/11/22 05/30/22 05/16/22 History Insulin Glargine,Hum.rec.anlog 20 unit SQ QAM 30 Days #1 box 05/12/22 05/30/22 05/16/22 Rx [Lantus Solostar] Insulin Regular, Human [Novolin R 5 unit SQ AC 30 Days #1 box 05/12/22 05/30/22 05/16/22 Rx Flexpen] NIFEdipine XL [Procardia Xl] 90 mg PO QDAY 30 Days #30 tablet 05/12/22 05/30/22 05/16/22 Rx carvediloL [Coreg] 25 mg PO BID 30 Days #60 tab 05/12/22 05/30/22 05/16/22 Rx Sevelamer Carbonate [Renvela] 1,600 mg PO TIDWM 05/30/22 05/30/22 05/16/22 History Citalopram [Celexa] 40 mg PO DAILY tablet 06/01/22 Unknown Rx ISOSORBIDE MONOnitrate [Imdur ER] 120 mg PO QDAY tablet 06/01/22 Unknown Rx Spironolactone [Aldactone] 100 mg PO QDAY tablet 06/01/22 Unknown Rx hydrALAZINE [Apresoline TAB] 50 mg PO Q8HR tablet 06/01/22 Unknown Rx Active Medications: Generic Name Dose Route Start Last Admin Trade Name Freq PRN Reason Stop Dose Admin Acetaminophen 650 mg 05/30/22 05:37 Acetaminophen 325 Mg Tab PO Q4H PRN Pain MILD(1-3)/Fever >100.5/CLARK Atorvastatin Calcium 40 mg 05/30/22 22:00 05/31/22 22:56 Atorvastatin 40 Mg Tab PO 40 mg QHS [facility] Administration Bumetanide 1 mg 05/30/22 22:00 05/31/22 22:57 Bumetanide 1 Mg Tab PO Not Given BID [facility] Carvedilol 25 mg 05/30/22 11:30 05/31/22 22:03 Carvedilol 25 Mg Tab PO Not Given BID [facility] Citalopram Hydrobromide 40 mg 05/31/22 10:00 05/31/22 09:27 Citalopram 20 Mg Tab PO 40 mg DAILY KRISTINA Administration Dextrose 0 ml 05/30/22 05:37 Dextrose 50% In Water (25gm) 50 Ml Syringe IV Q30MIN PRN Hypoglycemia Protocol Epoetin Jb-epbx 10,000 unit 06/01/22 00:30 Epoetin Jb-Epbx 10,000 Unit/1 Ml Vial SUB-Q EVELINA PRN hemodialysis Famotidine 20 mg 05/30/22 18:00 05/31/22 22:56 Famotidine 20 Mg Tab PO 20 mg QHS [facility] Administration Heparin Sodium (Porcine) 5,000 unit 05/30/22 06:00 06/01/22 05:48 Heparin 5,000 Unit/1 Ml Vial SUB-Q Not Given Q8HR [facility] Heparin Sodium (Porcine) 3,000 unit 05/30/22 09:00 Heparin 10,000 Units/10 Ml Vial IV EVELINA PRN hemodialysis Hydralazine HCl 10 mg 05/30/22 05:39 05/30/22 11:01 Hydralazine 20 Mg/1 Ml Inj IV 10 mg Q4H PRN Administration Blood Pressure Hydralazine HCl 50 mg 05/30/22 14:00 06/01/22 05:21 Hydralazine 25 Mg Tab PO 50 mg Q8HR [facility] Administration Sodium Chloride 100 mls @ 999 mls/hr 06/01/22 00:30 Nacl 0.9% IV EVELINA PRN Hypotension Insulin Glargine 15 units 05/31/22 14:36 Insulin Glargine 100 Units/Ml SUB-Q QAM [facility] Insulin Human Lispro 0 unit 05/30/22 07:30 06/01/22 07:30 Insulin Lispro 100 Unit/Ml SUB-Q Not Given ACHS [facility] Protocol Isosorbide Mononitrate 120 mg 05/31/22 10:00 07/22/22 11:43 Isosorbide Mononitrate Er 60 Mg Tab PO 120 mg QDAY KRISTINA Administration Magnesium Hydroxide 30 ml 05/30/22 05:37 Magnesium Hydroxide (Mom) Oral Liqd Udc PO Q4H PRN Constipation Morphine Sulfate 2 mg 05/30/22 05:37 Morphine 2 Mg/1 Ml Inj IV Q4H PRN Pain, Moderate (4-6) Nifedipine 90 mg 05/31/22 10:00 05/31/22 09:27 Nifedipine Xl 90 Mg Tab PO 90 mg QDAY [facility] Administration Ondansetron HCl 4 mg 05/30/22 05:37 Ondansetron 4 Mg/2 Ml Inj IV Q8H PRN Nausea And Vomiting Sevelamer Carbonate 1,600 mg 05/31/22 09:00 06/01/22 08:51 Sevelamer Carbonate 800 Mg Tab PO 1,600 mg TIDWM KRISTINA Administration Sodium Chloride 10 ml 05/30/22 10:00 05/31/22 22:57 Sodium Chloride 0.9% 10 Ml Flush Syringe IV 10 ml BID KRISTINA Administration Sodium Chloride 10 ml 05/30/22 05:37 Sodium Chloride 0.9% 10 Ml Flush Syringe IV PRN PRN LINE FLUSH Spironolactone 100 mg 05/31/22 10:00 05/31/22 11:53 Spironolactone 50 Mg Tab PO Not Given QDAY KRISTINA
[2022-06-01] MEDS: carvediloL 25 MG TAB PO SCH (13:25)
[2022-06-01] MEDS: CITALOPRAM 20 MG TAB PO SCH (13:27)
[2022-06-01] MEDS: SPIRONOLACTONE 50 MG TAB PO SCH (13:27)
[2022-06-01] MEDS: NIFEdipine XL 90 MG TAB PO SCH (13:27)
[2022-06-01] MEDS: BUMETANIDE 1 MG TAB PO SCH (13:28)
[2022-06-01 14:58] VITALS: BP 163/92
== END 2022-06-01 16:20 | disposition home or self-care (01) | DRG 640 ==
LOC: ED 12:04 → 3A 05-30 05:37 → CC1 05-30 12:24 → 3A 05-31 14:59
PROVIDERS: ADMIT Internal Medicine Geriatric Medicine; ATTEND Internal Medicine
PROC: 5A1D70Z Performance of Urinary Filtration, Intermittent, Less than 6 Hours Per Day (ICD-10-PCS; principal; 2022-05-30)
PROC: 5A1D70Z Performance of Urinary Filtration, Intermittent, Less than 6 Hours Per Day (ICD-10-PCS; 2022-06-01)
DX: E87.5 Hyperkalemia (principal); N18.6 End stage renal disease; G92.8 Other toxic encephalopathy; N39.0 Urinary tract infection, site not specified; I16.1 Hypertensive emergency; E11.22 Type 2 diabetes mellitus with diabetic chronic kidney disease; E11.319 Type 2 diabetes mellitus with unspecified diabetic retinopathy without macular edema; I12.0 Hypertensive chronic kidney disease with stage 5 chronic kidney disease or end stage renal disease; Z91.15 Patient's noncompliance with renal dialysis; E87.2 Acidosis; D63.1 Anemia in chronic kidney disease; I67.4 Hypertensive encephalopathy; Z99.2 Dependence on renal dialysis; Z86.73 Personal history of transient ischemic attack (TIA), and cerebral infarction without residual deficits; Z79.4 Long term (current) use of insulin
CPT/HCPCS: 36415; 70450; 71045; 80048; 80053; 80074; 81001; 82962; 84100; 85025; 85027; 87086; G0378; J3490; Q9967; J0360; J0696; J1644; J1815; J2405; J7050

== ENCOUNTER 2022-07-30 05:47 | Inpatient (IN) | payer MEDICAID ==
[2022-07-30] MEDS ORDERED: ATROPINE 0.1% (1 MG/10 ML) CARDIAC SYRINGE ONE ×2 (05:53→20:55)
[2022-07-30] MEDS ORDERED: ROCURONIUM 50 MG/5 ML INJ IV ONE (05:56)
[2022-07-30] MEDS ORDERED: ETOMIDATE 20 MG/10 ML INJ IV ONE (05:56)
[2022-07-30 06:48] LABS: Basophils # (Auto) 0.1 K/mm3 (0.0-0.1); Basophils % (Auto) 1.1 % (0.0-1.8); Eosinophils # (Auto) 0.1 K/mm3 (0.0-0.4); Eosinophils % (Auto) 1.7 % (0.0-4.3); Hematocrit 27.1 % (35.5-45.6); Hemoglobin 8.9 gm/dl (11.8-15.2); Lymphocytes # (Auto) 1.7 K/mm3 (1.2-5.4); Lymphocytes % (Auto) 20.4 % (13.4-35.0); Mean Corpuscular HGB Conc 33 % (32-34); Mean Corpuscular Volume 87 fl (84-94); Monocytes # (Auto) 0.4 K/mm3 (0.0-0.8); Monocytes % (Auto) 5.3 % (0.0-7.3); Platelet Count 198 K/mm3 (140-440); Red Blood Count 3.11 M/mm3 (3.65-5.03); Red Cell Distribution Width 17.3 % (13.2-15.2)
[2022-07-30 07:19] LABS: Amphetamine Screen,Urine Negative; Benzodiazepines Screen,Urine Negative; Cannabinoid Screen,Urine Negative; Cocaine Screen,Urine Negative; Methadone Screen,Urine Negative; Opiate Screen,Urine Negative
[2022-07-30 07:21] LABS: ABG HCO3 21.8 mmol/L (20.0-26.0); ABG Methemoglobin 0.5 % (0.0-1.5); ABG Oxygen Saturation 97.4 % (95.0-99.0); ABG PCO2 37.8 mm Hg; ABG PH 7.379 pH Units (7.350-7.450); ABG PO2 95.7 mm Hg (80.0-90.0)
[2022-07-30 07:58] LABS: Calcium 8.7 mg/dL (8.4-10.2)
[2022-07-30 07:59] LABS: Albumin 3.6 g/dL (3.9-5)
[2022-07-30] MEDS ORDERED: fentaNYL DRIP Premix 1,000 MCG/100 ML BAG IV SCH (08:00)
[2022-07-30] MEDS: SODIUM CHLORIDE 0.9% IV SCH ×2 (08:10→09:30)
[2022-07-30] MEDS: EPINEPHRINE IV SCH ×2 (08:10→09:30)
--- NOTE | 2022-07-30 08:12 | XRay Report ---
CHEST 1 VIEW 07/30/2022 7:04 AM INDICATION / CLINICAL INFORMATION: sob. COMPARISON: 05/29/2022 FINDINGS: SUPPORT DEVICES: An endotracheal tube has been inserted which terminates 4.4 cm superior to the elizabeth a in adequate position. Right IJ permacath remains in good position terminating in the superior right atrium. Cardiac defibrillator pad overlies the right lower lung. HEART / MEDIASTINUM: Stable cardiomegaly with previous surgical changes. LUNGS / PLEURA: There is poor inspiration. There is hazy opacity throughout the right lung and left l ower lobe which probably represents hypoventilatory changes/atelectatic changes. No large pleural eff usion or pneumothorax. ADDITIONAL FINDINGS: No significant additional findings. IMPRESSION: 1. Adequate placement of the endotracheal tube. 2. Stable cardiomegaly. 3. Poor inspiration with bilateral lung opacities as described which probably represents hypoventilat ory changes. Infiltrates could be considered. Please correlate with the patient's clinical presentati on and follow-up. Signer Name: Alonso Lynch Jr, MD Signed: 07/30/2022 8:08 AM Workstation Name: [id number]
--- NOTE | 2022-07-30 08:20 | Emergency Department Report ---
ED General Adult HPI - General Chief complaint: Altered Mental Status Stated complaint: TACHYCARDIA Time Seen by Provider: 07/30/22 06:35 Source: patient, EMS Mode of arrival: Stretcher Limitations: No Limitations - History of Present Illness Initial comments: 51-year-old -[place] male with multiple medical problem including end- stage renal disease, complaining of increased shortness of breath this morning and being lethargic. Patient able to give more history. -: Sudden Location: head Radiation: non-radiation Consistency: constant Associated Symptoms: denies other symptoms - Related Data Home Medications Medication Instructions Recorded Confirmed Last Taken AtorvaSTATin [Lipitor] 40 mg PO QHS 05/11/22 05/30/22 05/16/22 Bumetanide [Bumex 1 mg tab] 1 mg PO BID 05/11/22 05/30/22 05/16/22 Sevelamer Carbonate [Renvela] 1,600 mg PO TIDWM 05/30/22 05/30/22 05/16/22 Previous Rx's Medication Instructions Recorded Last Taken Type Insulin Glargine,Hum.rec.anlog 20 unit SQ QAM 30 Days #1 box 05/12/22 05/16/22 Rx [Lantus Solostar] Insulin Regular, Human [Novolin R 5 unit SQ AC 30 Days #1 box 05/12/22 05/16/22 Rx Flexpen] NIFEdipine XL [Procardia Xl] 90 mg PO QDAY 30 Days #30 tablet 05/12/22 05/16/22 Rx carvediloL [Coreg] 25 mg PO BID 30 Days #60 tab 05/12/22 05/16/22 Rx Citalopram [Celexa] 40 mg PO DAILY tablet 06/01/22 Unknown Rx ISOSORBIDE MONOnitrate [Imdur ER] 120 mg PO QDAY tablet 06/01/22 Unknown Rx Spironolactone [Aldactone] 100 mg PO QDAY tablet 06/01/22 Unknown Rx hydrALAZINE [Apresoline TAB] 50 mg PO Q8HR tablet 06/01/22 Unknown Rx Allergies Allergy/AdvReac Type Severity Reaction Status Date / Time No Known Allergies Allergy Verified 05/30/22 15:01 ED Review of Systems ROS: Stated complaint: TACHYCARDIA Other details as noted in HPI Constitutional: see HPI Eyes: as per HPI ENT: as per HPI Respiratory: see HPI, orthopnea, shortness of breath Endocrine: no symptoms reported Neurological: weakness Psychiatric: as per HPI ED Past Medical Hx - Past Medical History Hx Hypertension: Yes Hx CVA: Yes Hx Congestive Heart Failure: Yes Hx Diabetes: Yes Hx Renal Disease: Yes (End-stage renal disease on hemodialysis) Hx Asthma: No Hx COPD: No - Surgical History Additional Surgical History: Open heart surgery for aortic repair, laser surgery for diabetic retinopathy - Social History Smoking Status: Current Every Day Smoker - Medications Home Medications: Home Medications Medication Instructions Recorded Confirmed Last Taken Type AtorvaSTATin [Lipitor] 40 mg PO QHS 05/11/22 05/30/22 05/16/22 History Bumetanide [Bumex 1 mg tab] 1 mg PO BID 05/11/22 05/30/22 05/16/22 History Insulin Glargine,Hum.rec.anlog 20 unit SQ QAM 30 Days #1 box 05/12/22 05/30/22 05/16/22 Rx [Lantus Solostar] Insulin Regular, Human [Novolin R 5 unit SQ AC 30 Days #1 box 05/12/22 05/30/22 05/16/22 Rx Flexpen] NIFEdipine XL [Procardia Xl] 90 mg PO QDAY 30 Days #30 tablet 05/12/22 05/30/22 05/16/22 Rx carvediloL [Coreg] 25 mg PO BID 30 Days #60 tab 05/12/22 05/30/22 05/16/22 Rx Sevelamer Carbonate [Renvela] 1,600 mg PO TIDWM 05/30/22 05/30/22 05/16/22 History Citalopram [Celexa] 40 mg PO DAILY tablet 06/01/22 Unknown Rx ISOSORBIDE MONOnitrate [Imdur ER] 120 mg PO QDAY tablet 06/01/22 Unknown Rx Spironolactone [Aldactone] 100 mg PO QDAY tablet 06/01/22 Unknown Rx hydrALAZINE [Apresoline TAB] 50 mg PO Q8HR tablet 06/01/22 Unknown Rx ED Physical Exam - General Limitations: No Limitations General appearance: anxious, lethargic - Head Head exam: Present: atraumatic, normocephalic, normal inspection - Eye Eye exam: Present: scleral icterus - ENT ENT exam: Present: normal exam - Neck Neck exam: Present: normal inspection - Respiratory Respiratory exam: Present: respiratory distress, rales, rhonchi, decreased breath sounds - Cardiovascular Cardiovascular Exam: Present: regular rate, normal rhythm, normal heart sounds - GI/Abdominal GI/Abdominal exam: Present: soft, distended. Absent: tenderness - Extremities Exam Extremities exam: Present: pedal edema - Back Exam Back exam: Present: normal inspection - Neurological Exam Neurological exam: Present: alert, CN II-XII intact - Skin Skin exam: Present: warm ED Course Vital Signs 07/30/22 07/30/22 07/30/22 06:37 06:38 06:45 Pulse Rate 42 L 34 L Respiratory 18 Rate Blood Pressure 84/49 77/45 Blood Pressure [Left] O2 Sat by Pulse 100 99 99 Oximetry 07/30/22 07/30/22 07/30/22 07:01 07:15 07:31 Pulse Rate 70 Respiratory 18 20 17 Rate Blood Pressure 80/46 76/47 72/42 Blood Pressure [Left] O2 Sat by Pulse 98 98 61 L Oximetry 07/30/22 07/30/22 07/30/22 07:45 08:01 08:15 Pulse Rate Respiratory 0 L 18 17 Rate Blood Pressure 59/36 59/36 59/36 Blood Pressure [Left] O2 Sat by Pulse Oximetry 07/30/22 07/30/22 07/30/22 08:31 08:45 09:07 Pulse Rate 63 52 L Respiratory 115 H 31 H 18 Rate Blood Pressure 208/136 151/79 Blood Pressure 137/73 [Left] O2 Sat by Pulse 78 L 94 100 Oximetry - Reevaluation(s) Reevaluation #1: 07/30/22 09:21 After intubation patient was stable stable. Patient pending ICU admission. Patient experienced 3 episodes of cardiopulmonary arrest requiring ACLS protocol. I have discussed with nephrology, medication assistant, and hospitalist for admitting the patient getting dialysis - Intubation Time Out Performed: Yes Sedative: Etomidate Mg Given: 20 Paralytic: Rocuronium Mg Given: 50 Laryngoscope: fiberoptic video scope Size: 4 ET Tube Size: 7.5 Tube Secured Depth (cm): 23 Tube Secured Location: lips Tube Placement Confirmation: visualized tube passing t Patient Tolerated Procedure: well Intubation Complications: none ED Medical Decision Making - Lab Data Result diagrams: 07/30/22 06:34 07/30/22 06:34 Critical Care Time: Yes Critical care time in (mins) excluding proc time.: 75 Critical care attestation.: If time is entered above; I have spent that time in minutes in the direct care of this critically ill patient, excluding procedure time. Critical Care Time: Requiring multiple episodes of ACLS, intubation, and managing multiple vasopressor drugs ED Disposition Clinical Impression: Respiratory arrest, Cardiopulmonary arrest, Hyperkalemia, Uremia of renal origin, Bradycardia Disposition: ADMITTED INPATIENT Is pt being admited?: Yes Does the pt Need Aspirin: No Condition: Critical Referrals: IVONNE ANSARI MD [Primary Care Provider] - 3-5 Days
[2022-07-30] MEDS ORDERED: ALBUTEROL 2.5 MG/3 ML NEBU IH ONE (08:22)
[2022-07-30] MEDS ORDERED: INSULIN REGULAR, HUMAN 100 UNITS/1 ML IV ONE (08:22)
[2022-07-30] MEDS ORDERED: CALCIUM GLUCONATE 1,000 MG in SODIUM CHLORIDE 0.9% 100 ML IV ONE (08:37)
[2022-07-30 08:44] LABS: Chol/HDL Ratio 1.5 %
[2022-07-30] MEDS ORDERED: EPOETIN ALFA-EPBX 10,000 UNIT/1 ML VIAL IV PRN (09:00)
[2022-07-30] MEDS ORDERED: SODIUM CHLORIDE 0.9% 100 ML IV PRN (09:00)
[2022-07-30] MEDS ORDERED: INSULIN REGULAR, HUMAN 100 UNITS/1 ML IV SCH (09:00)
[2022-07-30] MEDS ORDERED: DEXTROSE 50% IN WATER (25GM) 50 ML SYRINGE IV PRN (09:19)
[2022-07-30] MEDS ORDERED: ALBUTEROL 2.5 MG/3 ML NEBU IH PRN (09:19)
[2022-07-30] MEDS ORDERED: MORPHINE 4 MG/1 ML INJ IV PRN (09:19)
[2022-07-30] MEDS ORDERED: SODIUM POLYSTYRENE 15 GM/60 ML ORAL LIQD PO ONE (09:24)
--- NOTE | 2022-07-30 09:29 | History and Physical Report ---
History of Present Illness Date of examination: 07/30/22 Date of admission: 07/30/22 Chief complaint: Altered mental status Cardiac arrest History of present illness: 51-year-old -Chinese male with past medical history of end-stage renal disease on hemodialysis, CHF, CVA, diabetes was brought to the emergency room because of increased shortness of breath this morning and being lethargic. Patient patient is not able to give more history. The emergency room patient is found to have BUN of 69 and creatinine of 7.3, potassium 6.2 and troponin 0.117. In the emergency room patient has 2 cardiac arrest. Patient was found bradycardic patient was put on epinephrine drip. Nephrology is consulted for hemodialysis. We also consult critical care and cardiology for further evaluation Past History Past Medical History: diabetes, ESRD, hypertension, renal failure, stroke Past Surgical History: bowel surgery (Hemodialysis catheter), Other Medications and Allergies Allergies Allergy/AdvReac Type Severity Reaction Status Date / Time No Known Allergies Allergy Verified 05/30/22 15:01 Home Medications Medication Instructions Recorded Confirmed Last Taken Type AtorvaSTATin [Lipitor] 40 mg PO QHS 05/11/22 05/30/22 05/16/22 History Bumetanide [Bumex 1 mg tab] 1 mg PO BID 05/11/22 05/30/22 05/16/22 History Insulin Glargine,Hum.rec.anlog 20 unit SQ QAM 30 Days #1 box 05/12/22 05/30/22 05/16/22 Rx [Lantus Solostar] Insulin Regular, Human [Novolin R 5 unit SQ AC 30 Days #1 box 05/12/22 05/30/22 05/16/22 Rx Flexpen] NIFEdipine XL [Procardia Xl] 90 mg PO QDAY 30 Days #30 tablet 05/12/22 05/30/22 05/16/22 Rx carvediloL [Coreg] 25 mg PO BID 30 Days #60 tab 05/12/22 05/30/22 05/16/22 Rx Sevelamer Carbonate [Renvela] 1,600 mg PO TIDWM 05/30/22 05/30/22 05/16/22 History Citalopram [Celexa] 40 mg PO DAILY tablet 06/01/22 Unknown Rx ISOSORBIDE MONOnitrate [Imdur ER] 120 mg PO QDAY tablet 06/01/22 Unknown Rx Spironolactone [Aldactone] 100 mg PO QDAY tablet 06/01/22 Unknown Rx hydrALAZINE [Apresoline TAB] 50 mg PO Q8HR tablet 06/01/22 Unknown Rx Active Meds: Active Medications Acetaminophen (Acetaminophen 325 Mg Tab) 650 mg PO Q4H PRN PRN Reason: Pain MILD(1-3)/Fever >100.5/CLARK Albuterol (Albuterol 2.5 Mg/3 Ml Nebu) 2.5 mg IH Q3HRT PRN PRN Reason: Shortness Of Breath Albuterol/Ipratropium (Ipratropium/Albuterol Sulfate 3 Ml Ampul.Neb) 1 ampul IH Q6HRT KRISTINA Atorvastatin Calcium (Atorvastatin 40 Mg Tab) 40 mg PO QHS KRISTINA Bumetanide (Bumetanide 1 Mg Tab) 1 mg PO BID KRISTINA Carvedilol (Carvedilol 25 Mg Tab) 25 mg PO BID KRISTINA Citalopram Hydrobromide (Citalopram 20 Mg Tab) 40 mg PO DAILY [facility] Dextrose (Dextrose 50% In Water (25gm) 50 Ml Syringe) 50 ml IV Q30MIN PRN; Protocol PRN Reason: Hypoglycemia Epoetin Jb-epbx (Epoetin Jb-Epbx 10,000 Unit/1 Ml Vial) 10,000 unit IV EVELINA PRN PRN Reason: hemodialysis Famotidine (Famotidine 20 Mg/2 Ml Inj) 20 mg IV BID [facility] Heparin Sodium (Porcine) (Heparin 10,000 Units/10 Ml Vial) 3,000 unit IV EVELINA PRN PRN Reason: hemodialysis Hydralazine HCl (Hydralazine 25 Mg Tab) 50 mg PO Q8HR [facility] Epinephrine 10 mg/ Sodium (Chloride) 250 mls @ 11.907 mls/hr IV DIRECT KRISTINA; Protocol Fentanyl Citrate (Fentanyl Drip Premix) 1,000 mcg in 100 mls @ 2.5 mls/hr IV TITR KRISTINA; Protocol Sodium Chloride (Nacl 0.9%) 100 mls @ 999 mls/hr IV EVELINA PRN PRN Reason: Hypotension CALC GLUCONATE 1GM/NS 100 ML (Calcium Gluonate/Ns 1,000mg/100ml) 1 gm in 100 mls @ 300 mls/hr IV ONCE ONE Stop: 07/30/22 09:49 Insulin Human Lispro (Insulin Lispro 100 Unit/Ml) 0 unit SUB-Q Q6HR [facility]; Protocol Insulin Human Regular (Insulin Regular, Human 100 Units/1 Ml) 6 units IV ONCE@0900 [facility] Stop: 07/30/22 12:00 Isosorbide Mononitrate (Isosorbide Mononitrate Er 60 Mg Tab) 120 mg PO QDAY [facility] Miscellaneous Medication (Insulin Glargine,Hum.Rec.Anlog [Lantus Solostar]) 20 unit SQ QAM KRISTINA Morphine Sulfate (Morphine 2 Mg/1 Ml Inj) 2 mg IV Q4H PRN PRN Reason: Pain, Moderate (4-6) Morphine Sulfate (Morphine 4 Mg/1 Ml Inj) 4 mg IV Q4H PRN PRN Reason: Pain , Severe (7-10) Nifedipine (Nifedipine Xl 90 Mg Tab) 90 mg PO QDAY [facility] Ondansetron HCl (Ondansetron 4 Mg/2 Ml Inj) 4 mg IV Q8H PRN PRN Reason: Nausea And Vomiting Sevelamer Carbonate (Sevelamer Carbonate 800 Mg Tab) 1,600 mg PO TIDWM [facility] Sodium Chloride (Sodium Chloride 0.9% 10 Ml Flush Syringe) 10 ml IV BID [facility] Sodium Chloride (Sodium Chloride 0.9% 10 Ml Flush Syringe) 10 ml IV PRN PRN PRN Reason: LINE FLUSH Sodium Polystyrene Sulfonate (Sodium Polystyrene 15 Gm/60 Ml Oral Liqd) 60 gm PO ONCE ONE Stop: 07/30/22 09:25 Review of Systems All systems: negative Constitutional: fatigue, malaise, lethargy, other (Shortness of breath) Exam - Constitutional Vitals: Temp Pulse Resp BP Pulse Ox 52 L 18 137/73 100 07/30/22 09:07 07/30/22 09:07 07/30/22 09:07 07/30/22 09:07 General appearance: Present: no acute distress, severe distress, well-nourished - EENT Eyes: Present: PERRL ENT: hearing intact, clear oral mucosa - Neck Neck: Present: supple, normal ROM - Respiratory Respiratory effort: normal Respiratory: bilateral: diminished - Cardiovascular Heart Sounds: Present: S1 & S2. Absent: rub, click - Extremities Extremities: pulses symmetrical, No edema Peripheral Pulses: within normal limits - Abdominal General gastrointestinal: Present: soft, non-tender, non-distended, normal bowel sounds Male genitourinary: Present: normal - Integumentary Integumentary: Present: clear, warm, dry - Musculoskeletal Musculoskeletal: gait normal, strength equal bilaterally - Neurologic Neurologic: CNII-XII intact, moves all extremities, other (Patient is altered mental status) HEART Score - HEART Score Troponin: Troponin T 0.117 ng/mL (0.00-0.029) H* 07/30/22 06:34 Results - Labs CBC & Chem 7: 07/30/22 06:34 07/30/22 06:34 Labs: Laboratory Last Values WBC 8.4 K/mm3 (4.5-11.0) 07/30/22 06:34 RBC 3.11 M/mm3 (3.65-5.03) L 07/30/22 06:34 Hgb 8.9 gm/dl (11.8-15.2) L 07/30/22 06:34 Hct 27.1 % (35.5-45.6) L 07/30/22 06:34 MCV 87 fl (84-94) 07/30/22 06:34 MCH 29 pg (28-32) 07/30/22 06:34 MCHC 33 % (32-34) 07/30/22 06:34 RDW 17.3 % (13.2-15.2) H 07/30/22 06:34 Plt Count 198 K/mm3 (140-440) 07/30/22 06:34 Lymph % (Auto) 20.4 % (13.4-35.0) 07/30/22 06:34 [place] % (Auto) 5.3 % (0.0-7.3) 07/30/22 06:34 Eos % (Auto) 1.7 % (0.0-4.3) 07/30/22 06:34 Baso % (Auto) 1.1 % (0.0-1.8) 07/30/22 06:34 Lymph # (Auto) 1.7 K/mm3 (1.2-5.4) 07/30/22 06:34 [place] # (Auto) 0.4 K/mm3 (0.0-0.8) 07/30/22 06:34 Eos # (Auto) 0.1 K/mm3 (0.0-0.4) 07/30/22 06:34 Baso # (Auto) 0.1 K/mm3 (0.0-0.1) 07/30/22 06:34 Seg Neutrophils % 71.5 % (40.0-70.0) H 07/30/22 06:34 Seg Neutrophils # 6.0 K/mm3 (1.8-7.7) 07/30/22 06:34 ABG pH 7.379 pH Units (7.350-7.450) 07/30/22 06:56 ABG pCO2 37.8 mm Hg 07/30/22 06:56 ABG pO2 95.7 mm Hg (80.0-90.0) H 07/30/22 06:56 ABG HCO3 21.8 mmol/L (20.0-26.0) 07/30/22 06:56 ABG O2 Saturation 97.4 % (95.0-99.0) 07/30/22 06:56 ABG O2 Content 11.5 (0.0-44) 07/30/22 06:56 ABG Base Excess -3.0 mmol/L (-2.0-3.0) L 07/30/22 06:56 ABG Hemoglobin 8.5 gm/dl (14.0-18.0) L 07/30/22 06:56 ABG Carboxyhemoglobin 1.5 % (0.0-5.0) 07/30/22 06:56 ABG Methemoglobin 0.5 % (0.0-1.5) 07/30/22 06:56 Oxyhemoglobin 95.4 % (95.0-99.0) 07/30/22 06:56 FiO2 100 % 07/30/22 06:56 Sodium 135 mmol/L (137-145) L 07/30/22 06:34 Potassium 6.2 mmol/L (3.6-5.0) H* 07/30/22 06:34 Chloride 97.0 mmol/L (98-107) L 07/30/22 06:34 Carbon Dioxide 21 mmol/L (22-30) L 07/30/22 06:34 Anion Gap 23 mmol/L 07/30/22 06:34 BUN 69 mg/dL (9-20) H 07/30/22 06:34 Creatinine 7.3 mg/dL (0.8-1.3) H 07/30/22 06:34 Estimated GFR 10 ml/min 07/30/22 06:34 BUN/Creatinine Ratio 9 % 07/30/22 06:34 Glucose 335 mg/dL (75-100) H 07/30/22 06:34 Calcium 8.7 mg/dL (8.4-10.2) 07/30/22 06:34 Total Bilirubin 0.50 mg/dL (0.1-1.2) 07/30/22 06:34 AST 23 units/L (5-40) 07/30/22 06:34 ALT 18 units/L (7-56) 07/30/22 06:34 Alkaline Phosphatase 120 units/L (35-129) 07/30/22 06:34 Troponin T 0.117 ng/mL (0.00-0.029) H* 07/30/22 06:34 Total Protein 7.4 g/dL (6.3-8.2) 07/30/22 06:34 Albumin 3.6 g/dL (3.9-5) L 07/30/22 06:34 Albumin/Globulin Ratio 0.9 % 07/30/22 06:34 Triglycerides 49 mg/dL (2-149) 07/30/22 06:34 Cholesterol 86 mg/dL (50-199) 07/30/22 06:34 LDL Cholesterol Direct 24 mg/dL (50-130) L 07/30/22 06:34 HDL Cholesterol 57 mg/dL (40-59) 07/30/22 06:34 Cholesterol/HDL Ratio 1.50 % 07/30/22 06:34 Lipase 42 units/L (13-60) 07/30/22 06:34 Urine Opiates Screen Negative 07/30/22 07:03 Urine Methadone Screen Negative 07/30/22 07:03 Ur Barbiturates Screen Negative 07/30/22 07:03 Ur Phencyclidine Scrn Negative 07/30/22 07:03 Ur Amphetamines Screen Negative 07/30/22 07:03 U Benzodiazepines Scrn Negative 07/30/22 07:03 Urine Cocaine Screen Negative 07/30/22 07:03 U Marijuana (THC) Screen Negative 07/30/22 07:03 Drugs of Abuse Note Disclamer 07/30/22 07:03 - Imaging and Cardiology Chest x-ray: report reviewed Assessment and Plan VTE prophylaxis?: Chemical Plan of care discussed with patient/family: Yes - Patient Problems (1) Acute respiratory failure Current Visit: Yes Status: Acute Plan to address problem: Admit the patient to the medical ICU. Patient is status post intubation. DuoNeb by nebulizer every 4 hours. Albuterol via nebulizer every 4 hours as needed. Will consult critical care evaluation. Recheck ABG and BMP in the morning (2) Cardiopulmonary arrest Current Visit: Yes Status: Acute Plan to address problem: Patient has 2 cardiac arrest in the emergency room. Aspirin 325 mg p.o. daily. Lipitor 40 mg p.o. daily. Nitroglycerin as needed. Echocardiogram. Cardiology evaluation. Patient is on epinephrine drip (3) CHF (congestive heart failure) Current Visit: Yes Status: Acute Plan to address problem: Avoid fluid overload. Nephrology is consulted for emergent hemodialysis. Echocardiogram. Cardiology evaluation (4) Acute metabolic encephalopathy Current Visit: No Status: Acute Plan to address problem: Acute metabolic encephalopathy secondary to end-stage renal disease and cardiac arrest. Will consult nephrology for emergent hemodialysis and cardiology for further evaluation and treatment (5) Diabetes mellitus Current Visit: No Status: Acute Plan to address problem: Accu-Chek every 6 hours with Humalog moderate dose coverage. Diabetic education. Recheck BMP in the morning (6) ESRD needing dialysis Current Visit: No Status: Acute (7) Hypotension Current Visit: No Status: Acute Plan to address problem: Patient is on epinephrine drip for hypotension. We will monitor the patient closely because patient is a hemodialysis patient will consult cardiology for further evaluation and treatment (8) Hyperkalemia Current Visit: Yes Status: Acute Plan to address problem: Patient already got insulin IV, calcium gluconate 1 g IV x1 dose, Kayexalate 60 mg p.o. x1 dose. We consult nephrology for emergent hemodialysis. Recheck the BMP in 4 hours and in the morning (9) DVT prophylaxis Current Visit: No Status: Acute Plan to address problem: Heparin drip for DVT prophylaxis. Pepcid 20 mg IV every 12 hours for GI prophylaxis. Patient is a full code
[2022-07-30] MEDS ORDERED: ACETAMINOPHEN 325 MG TAB PO PRN (09:30)
[2022-07-30] MEDS ORDERED: CALC GLUCONATE 1GM/NS 100 ML 1 GM/100 ML BAG IV ONE (09:30)
[2022-07-30] MEDS ORDERED: MORPHINE 2 MG/1 ML INJ IV PRN (09:30)
--- NOTE | 2022-07-30 09:40 | Electrocardiograph Report ---
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
[2022-07-30] MEDS ORDERED: NON-FORMULARY EACH (Insulin Glargine,Hum.Rec.Anlog [Lantus Solostar] 100 UNIT/ML Insuln.Pe SQ SCH (10:00)
[2022-07-30] MEDS ORDERED: NIFEdipine XL 90 MG TAB PO SCH (10:00)
[2022-07-30] MEDS ORDERED: ONDANSETRON 4 MG/2 ML INJ IV PRN (10:00)
[2022-07-30] MEDS: INSULIN GLARGINE 100 UNITS/ML SUB-Q SCH (10:40)
[2022-07-30] MEDS ORDERED: DOPamine 800 MG/D5W 250ML 800 MG/250 ML BAG IV ONE (10:55)
--- NOTE | 2022-07-30 11:21 | XRay Report ---
XR abdomen 1V ap INDICATION: NG TUBE PLACEMENT. COMPARISON: None available. FINDINGS: The tip of the esophagogastric tube projects over the body of the stomach. Signer Name: Evan Diop MD Signed: 07/30/2022 11:17 AM Workstation Name: [id number]
[2022-07-30 11:41] LABS: Hepatitis B Surface Antigen Non-Reactive (Negative)
[2022-07-30 11:42] LABS: Hepatitis C Virus Antibody Non-Reactive (NonReactive)
[2022-07-30] MEDS: ASPIRIN 325 MG TAB PO SCH (11:58)
[2022-07-30] MEDS: BUMETANIDE 1 MG TAB PO SCH ×2 (12:17→21:51)
[2022-07-30] MEDS: CITALOPRAM 20 MG TAB PO SCH (12:18)
[2022-07-30] MEDS: carvediloL 25 MG TAB PO SCH ×2 (12:18→21:51)
[2022-07-30] MEDS: INSULIN LISPRO 100 UNIT/ML SUB-Q SCH ×2 (12:19→18:33)
[2022-07-30] MEDS: FAMOTIDINE 20 MG/2 ML INJ IV SCH ×2 (12:29→21:51)
--- NOTE | 2022-07-30 12:56 | Consultation ---
History of Present Illness Consult date: 07/30/22 Requesting physician: REGLA BRANCH Consult reason: cardiac arrest History of present illness: Pt is a 51-year-old male with a hx of ESRD on HD, HTN, and DM2 who presented via EMS for evaluation of lethargy today. History taken from chart and conversations with staff due to patient being intubated. Patient came to the ED today for complaints of shortness of breath and lethargy this a.m. In the ED patient was intubated for protection of airway due to mental status. Following intubation patient became bradycardic and lost pulses. Per conversation with staff patient had 2 cardiac arrest due to bradycardia and started on epi drip. Labs showed patient to have elevated creatinine of 7.3, potassium 6.2, and elevated troponin. Patient previously seen by practice during admission in May but did not follow-up in our office. Cardiology is consulted for elevated troponin and s/p cardiac arrest. Past History Past Medical History: diabetes, ESRD, hypertension, renal failure, stroke Past Surgical History: bowel surgery (Hemodialysis catheter), Other Social history: other (Unable to obtain) Family history: other (Unable to obtain) Medications and Allergies Allergies Allergy/AdvReac Type Severity Reaction Status Date / Time No Known Allergies Allergy Verified 05/30/22 15:01 Home Medications Medication Instructions Recorded Confirmed Last Taken Type AtorvaSTATin [Lipitor] 40 mg PO QHS 05/11/22 05/30/22 05/16/22 History Bumetanide [Bumex 1 mg tab] 1 mg PO BID 05/11/22 05/30/22 05/16/22 History Insulin Glargine,Hum.rec.anlog 20 unit SQ QAM 30 Days #1 box 05/12/22 05/30/22 05/16/22 Rx [Lantus Solostar] Insulin Regular, Human [Novolin R 5 unit SQ AC 30 Days #1 box 05/12/22 05/30/22 05/16/22 Rx Flexpen] NIFEdipine XL [Procardia Xl] 90 mg PO QDAY 30 Days #30 tablet 05/12/22 05/30/22 05/16/22 Rx carvediloL [Coreg] 25 mg PO BID 30 Days #60 tab 05/12/22 05/30/22 05/16/22 Rx Sevelamer Carbonate [Renvela] 1,600 mg PO TIDWM 05/30/22 05/30/22 05/16/22 Hi story Citalopram [Celexa] 40 mg PO DAILY tablet 06/01/22 Unknown Rx ISOSORBIDE MONOnitrate [Imdur ER] 120 mg PO QDAY tablet 06/01/22 Unknown Rx Spironolactone [Aldactone] 100 mg PO QDAY tablet 06/01/22 Unknown Rx hydrALAZINE [Apresoline TAB] 50 mg PO Q8HR tablet 06/01/22 Unknown Rx Active Meds: Active Medications Acetaminophen (Acetaminophen 325 Mg Tab) 650 mg PO Q4H PRN PRN Reason: Pain MILD(1-3)/Fever >100.5/CLARK Albuterol (Albuterol 2.5 Mg/3 Ml Nebu) 2.5 mg IH Q3HRT PRN PRN Reason: Shortness Of Breath Albuterol/Ipratropium (Ipratropium/Albuterol Sulfate 3 Ml Ampul.Neb) 1 ampul IH Q6HRT [facility] Aspirin (Aspirin 325 Mg Tab) 325 mg PO QDAY [facility] Last Admin: 07/30/22 11:58 Dose: 325 mg Atorvastatin Calcium (Atorvastatin 40 Mg Tab) 40 mg PO QHS [facility] Bumetanide (Bumetanide 1 Mg Tab) 1 mg PO BID [facility] Last Admin: 07/30/22 12:17 Dose: Not Given Carvedilol (Carvedilol 25 Mg Tab) 25 mg PO BID [facility] Last Admin: 07/30/22 12:18 Dose: Not Given Citalopram Hydrobromide (Citalopram 20 Mg Tab) 40 mg PO DAILY [facility] Last Admin: 07/30/22 12:18 Dose: Not Given Dextrose (Dextrose 50% In Water (25gm) 50 Ml Syringe) 50 ml IV Q30MIN PRN; Protocol PRN Reason: Hypoglycemia Epoetin Jb-epbx (Epoetin Jb-Epbx 10,000 Unit/1 Ml Vial) 10,000 unit IV EVELINA PRN PRN Reason: hemodialysis Famotidine (Famotidine 20 Mg/2 Ml Inj) 20 mg IV BID [facility] Last Admin: 07/30/22 12:29 Dose: 20 mg Heparin Sodium (Porcine) (Heparin 10,000 Units/10 Ml Vial) 3,000 unit IV EVELINA PRN PRN Reason: hemodialysis Hydralazine HCl (Hydralazine 25 Mg Tab) 50 mg PO Q8HR [facility] Epinephrine 10 mg/ Sodium (Chloride) 250 mls @ 11.907 mls/hr IV DIRECT KRISTINA; Protocol Last Titration: 07/30/22 09:44 Dose: 0.7 mcg/kg/min, 83.348 mls/hr Fentanyl Citrate (Fentanyl Drip Premix) 1,000 mcg in 100 mls @ 2.5 mls/hr IV TITR KRISTINA; Protocol Sodium Chloride (Nacl 0.9%) 100 mls @ 999 mls/hr IV EVELINA PRN PRN Reason: Hypotension Dopamine HCl/Dextrose (Dopamine 800 Mg/D5w 250ml) 800 mg in 250 mls @ 2.977 mls/hr IV TITR ONE; Protocol Stop: 08/02/22 22:53 Last Titration: 07/30/22 10:00 Dose: 10 mcg/kg/min, 14.884 mls/hr Insulin Glargine (Insulin Glargine 100 Units/Ml) 20 units SUB-Q QAM [facility] Last Admin: 07/30/22 10:40 Dose: Not Given Insulin Human Lispro (Insulin Lispro 100 Unit/Ml) 0 unit SUB-Q Q6HR [facility]; Protocol Last Admin: 07/30/22 12:19 Dose: Not Given Isosorbide Mononitrate (Isosorbide Mononitrate Er 60 Mg Tab) 120 mg PO QDAY [facility] Last Admin: 07/30/22 12:17 Dose: Not Given Morphine Sulfate (Morphine 2 Mg/1 Ml Inj) 2 mg IV Q4H PRN PRN Reason: Pain, Moderate (4-6) Morphine Sulfate (Morphine 4 Mg/1 Ml Inj) 4 mg IV Q4H PRN PRN Reason: Pain , Severe (7-10) Nifedipine (Nifedipine Xl 90 Mg Tab) 90 mg PO QDAY [facility] Last Admin: 07/30/22 10:37 Dose: Not Given Ondansetron HCl (Ondansetron 4 Mg/2 Ml Inj) 4 mg IV Q8H PRN PRN Reason: Nausea And Vomiting Sevelamer Carbonate (Sevelamer Carbonate 800 Mg Tab) 1,600 mg PO TIDWM [facility] Sodium Chloride (Sodium Chloride 0.9% 10 Ml Flush Syringe) 10 ml IV BID [facility] Last Admin: 07/30/22 10:37 Dose: 10 ml Sodium Chloride (Sodium Chloride 0.9% 10 Ml Flush Syringe) 10 ml IV PRN PRN PRN Reason: LINE FLUSH Review of Systems ROS unobtainable: due to endotracheal tube, due to mental status Physical Examination Vital Signs Pulse Ox 100 07/30/22 06:37 General appearance: other (Intubated) Cardiac: Positive: Regular Rhythm, Bradycardia Lungs: Positive: clear to auscultation, Ventilated Respirations Neuro: Positive: Other (Unable to assess) Abdomen: Positive: Soft Skin: Negative: Rash, Suspicious Lesions, Ulceration Extremities: Present: upper extr. pulses, edema Results 07/30/22 06:34 07/30/22 06:34 Cardiac Enzymes 07/30/22 07/30/22 07/30/22 Range/Units 06:34 06:34 06:34 WBC 8.4 (4.5-11.0) K/mm3 RBC 3.11 L (3.65-5.03) M/mm3 Hgb 8.9 L (11.8-15.2) gm/dl Hct 27.1 L (35.5-45.6) % MCV 87 (84-94) fl MCH 29 (28-32) pg MCHC 33 (32-34) % RDW 17.3 H (13.2-15.2) % Plt Count 198 (140-440) K/mm3 Lymph % (Auto) 20.4 (13.4-35.0) % [place] % (Auto) 5.3 (0.0-7.3) % Eos % (Auto) 1.7 (0.0-4.3) % Baso % (Auto) 1.1 (0.0-1.8) % Lymph # (Auto) 1.7 (1.2-5.4) K/mm3 [place] # (Auto) 0.4 (0.0-0.8) K/mm3 Eos # (Auto) 0.1 (0.0-0.4) K/mm3 Baso # (Auto) 0.1 (0.0-0.1) K/mm3 Seg Neutrophils % 71.5 H (40.0-70.0) % Seg Neutrophils # 6.0 (1.8-7.7) K/mm3 ABG pH (7.350-7.450) pH Units ABG pCO2 mm Hg ABG pO2 (80.0-90.0) mm Hg ABG HCO3 (20.0-26.0) mmol/L ABG O2 Saturation (95.0-99.0) % ABG O2 Content (0.0-44) ABG Base Excess (-2.0-3.0) mmol/L ABG Hemoglobin (14.0-18.0) gm/dl ABG Carboxyhemoglobin (0.0-5.0) % ABG Methemoglobin (0.0-1.5) % Oxyhemoglobin (95.0-99.0) % FiO2 % Sodium 135 L (137-145) mmol/L Potassium 6.2 H* (3.6-5.0) mmol/L Chloride 97.0 L (98-107) mmol/L Carbon Dioxide 21 L (22-30) mmol/L Anion Gap 23 mmol/L BUN 69 H (9-20) mg/dL Creatinine 7.3 H (0.8-1.3) mg/dL Estimated GFR 10 ml/min BUN/Creatinine Ratio 9 % Glucose 335 H (75-100) mg/dL Calcium 8.7 (8.4-10.2) mg/dL Total Bilirubin 0.50 (0.1-1.2) mg/dL AST 23 (5-40) units/L ALT 18 (7-56) units/L Alkaline Phosphatase 120 (35-129) units/L Troponin T 0.117 H* (0.00-0.029) ng/mL Total Protein 7.4 (6.3-8.2) g/dL Albumin 3.6 L (3.9-5) g/dL Albumin/Globulin Ratio 0.9 % Triglycerides 49 (2-149) mg/dL Cholesterol 86 (50-199) mg/dL LDL Cholesterol Direct 24 L (50-130) mg/dL HDL Cholesterol 57 (40-59) mg/dL Cholesterol/HDL Ratio 1.50 % Lipase 42 (13-60) units/L Urine Opiates Screen Urine Methadone Screen Ur Barbiturates Screen Ur Phencyclidine Scrn Ur Amphetamines Screen U Benzodiazepines Scrn Urine Cocaine Screen U Marijuana (THC) Screen Drugs of Abuse Note Hepatitis A IgM Ab (NonReactive) Hep Bs Antigen (Negative) Hep B Core IgM Ab (NonReactive) Hepatitis C Antibody (NonReactive) 07/30/22 07/30/22 07/30/22 Range/Units 06:56 07:03 09:02 WBC (4.5-11.0) K/mm3 RBC (3.65-5.03) M/mm3 Hgb (11.8-15.2) gm/dl Hct (35.5-45.6) % MCV (84-94) fl MCH (28-32) pg MCHC (32-34) % RDW (13.2-15.2) % Plt Count (140-440) K/mm3 Lymph % (Auto) (13.4-35.0) % [place] % (Auto) (0.0-7.3) % Eos % (Auto) (0.0-4.3) % Baso % (Auto) (0.0-1.8) % Lymph # (Auto) (1.2-5.4) K/mm3 [place] # (Auto) (0.0-0.8) K/mm3 Eos # (Auto) (0.0-0.4) K/mm3 Baso # (Auto) (0.0-0.1) K/mm3 Seg Neutrophils % (40.0-70.0) % Seg Neutrophils # (1.8-7.7) K/mm3 ABG pH 7.379 (7.350-7.450) pH Units ABG pCO2 37.8 mm Hg ABG pO2 95.7 H (80.0-90.0) mm Hg ABG HCO3 21.8 (20.0-26.0) mmol/L ABG O2 Saturation 97.4 (95.0-99.0) % ABG O2 Content 11.5 (0.0-44) ABG Base Excess -3.0 L (-2.0-3.0) mmol/L ABG Hemoglobin 8.5 L (14.0-18.0) gm/dl ABG Carboxyhemoglobin 1.5 (0.0-5.0) % ABG Methemoglobin 0.5 (0.0-1.5) % Oxyhemoglobin 95.4 (95.0-99.0) % FiO2 100 % Sodium (137-145) mmol/L Potassium (3.6-5.0) mmol/L Chloride (98-107) mmol/L Carbon Dioxide (22-30) mmol/L Anion Gap mmol/L BUN (9-20) mg/dL Creatinine (0.8-1.3) mg/dL Estimated GFR ml/min BUN/Creatinine Ratio % Glucose (75-100) mg/dL Calcium (8.4-10.2) mg/dL Total Bilirubin (0.1-1.2) mg/dL AST (5-40) units/L ALT (7-56) units/L Alkaline Phosphatase (35-129) units/L Troponin T (0.00-0.029) ng/mL Total Protein (6.3-8.2) g/dL Albumin (3.9-5) g/dL Albumin/Globulin Ratio % Triglycerides (2-149) mg/dL Cholesterol (50-199) mg/dL LDL Cholesterol Direct (50-130) mg/dL HDL Cholesterol (40-59) mg/dL Cholesterol/HDL Ratio % Lipase (13-60) units/L Urine Opiates Screen Negative Urine Methadone Screen Negative Ur Barbiturates Screen Negative Ur Phencyclidine Scrn Negative Ur Amphetamines Screen Negative U Benzodiazepines Scrn Negative Urine Cocaine Screen Negative U Marijuana (THC) Screen Negative Drugs of Abuse Note Disclamer Hepatitis A IgM Ab Non-reactive (NonReactive) Hep Bs Antigen Non-reactive (Negative) Hep B Core IgM Ab Non-reactive (NonReactive) Hepatitis C Antibody Non-reactive (NonReactive) Lipids 07/30/22 Range/Units 06:34 Triglycerides 49 (2-149) mg/dL Cholesterol 86 (50-199) mg/dL HDL Cholesterol 57 (40-59) mg/dL Cholesterol/HDL Ratio 1.50 % CBC 07/30/22 Range/Units 06:34 WBC 8.4 (4.5-11.0) K/mm3 RBC 3.11 L (3.65-5.03) M/mm3 Hgb 8.9 L (11.8-15.2) gm/dl Hct 27.1 L (35.5-45.6) % Plt Count 198 (140-440) K/mm3 Lymph # (Auto) 1.7 (1.2-5.4) K/mm3 [place] # (Auto) 0.4 (0.0-0.8) K/mm3 Eos # (Auto) 0.1 (0.0-0.4) K/mm3 Baso # (Auto) 0.1 (0.0-0.1) K/mm3 Comprehensive Metabolic Panel 07/30/22 Range/Units 06:34 Sodium 135 L (137-145) mmol/L Potassium 6.2 H* (3.6-5.0) mmol/L Chloride 97.0 L (98-107) mmol/L Carbon Dioxide 21 L (22-30) mmol/L BUN 69 H (9-20) mg/dL Creatinine 7.3 H (0.8-1.3) mg/dL Glucose 335 H (75-100) mg/dL Calcium 8.7 (8.4-10.2) mg/dL AST 23 (5-40) units/L ALT 18 (7-56) units/L Alkaline Phosphatase 120 (35-129) units/L Total Protein 7.4 (6.3-8.2) g/dL Albumin 3.6 L (3.9-5) g/dL - Imaging and Cardiology Echo: pending, report reviewed EKG: report reviewed, image reviewed EKG interpretations - Telemetry EKG Rhythm: Sinus Bradycardia - EKG Sinus rhythms and dysrhythmias: sinus bradycardia Repolarization changes or abnormalities: nonspecific abnormality, ST segment, and/or T wave Assessment and Plan Pt is a 51-year-old male with a hx of ESRD on HD, HTN, and DM2 who presented via EMS for evaluation of lethargy today found to [facility] and s/p cardiac arrestx2 s/p Cardiac arrest Acute Encephalopathy Bradyarrhythmia Hyperkalemia ESRD on HD-nephrology following Anemia Elevated Tn HTN DM2 w/Hyperglycemia Echo 05/11/2022-EF 40 to 45%. Moderate concentric LVH. Transmitral Doppler flow pattern suggests restrictive physiology. Moderate tricuspid regurgitation. Moderate pulmonary hypertension. Moderate tricuspid regurgitation. Right atrium moderately dilated. Left atrium mildly dilated. IVC dilated. IVC collapses less than 50% inspiration Plan: EKG shows sinus bradycardia 37 with nonspecific T abnormalities. No acute ischemic change Troponin is noted to be elevated however not significantly different than troponin level on prior admission. Furthermore suspect troponin elevation in setting of end-stage renal disease in need of hemodialysis and patient s/p cardiac arrest Agree with initiation of dopamine gtt and recommend increasing dopamine. Recommend stopping epi. and converting to Levophed if patient's MAP is less than 65 HD and correction of hyperK per Nephro. No AV odalys agents due to patient requiring pressors Echo pending. Continue to closely monitor Patient in conjunction with Dr. Rodrigues who agrees with this plan of care - Patient Problems (1) Bradycardia Current Visit: Yes Status: Acute (2) Cardiopulmonary arrest Current Visit: Yes Status: Acute (3) Hyperkalemia Current Visit: Yes Status: Acute (4) Advance care planning Current Visit: No Status: Acute (5) Diabetes mellitus Current Visit: No Status: Acute (6) ESRD needing dialysis Current Visit: No Status: Acute (7) Hypotension Current Visit: No Status: Acute
--- NOTE | 2022-07-30 14:26 | Consultation ---
History of Present Illness - Reason for Consult Consult date: 07/30/22 end stage renal disease, hyperkalemia, metabolic acidosis - History of Present Illness The patient is a 51 YO male known to pour service with history of Hypertension, DM, CVA, Anemia, ESRD on HD and Medical non-compliance who was brought into [facility] ED 07/30/22 by EMS with increased shortness of breath this morning and being lethargic. Patient patient is not able to give any history and there was no family member at the bedside. In the emergency room patient has 2 cardiac arrest with downtime about 20 min. Patient was found bradycardic, patient was put on epinephrine drip. Labs notable for BUN 69, creatinine 7.3, Potassium 6.2 and Troponin 0.117. Nephrology consulted for ESRD management. Past History Past Medical History: diabetes, dialysis, ESRD, hypertension, renal failure, stroke Past Surgical History: bowel surgery (Hemodialysis catheter), Other Social history: other (Unable to obtain) Family history: other (Unable to obtain) Medications and Allergies Allergies Allergy/AdvReac Type Severity Reaction Status Date / Time No Known Allergies Allergy Verified 05/30/22 15:01 Home Medications Medication Instructions Recorded Confirmed Last Taken Type AtorvaSTATin [Lipitor] 40 mg PO QHS 05/11/22 05/30/22 05/16/22 History Bumetanide [Bumex 1 mg tab] 1 mg PO BID 05/11/22 05/30/22 05/16/22 History Insulin Glargine,Hum.rec.anlog 20 unit SQ QAM 30 Days #1 box 05/12/22 05/30/22 05/16/22 Rx [Lantus Solostar] Insulin Regular, Human [Novolin R 5 unit SQ AC 30 Days #1 box 05/12/22 05/30/22 05/16/22 Rx Flexpen] NIFEdipine XL [Procardia Xl] 90 mg PO QDAY 30 Days #30 tablet 05/12/22 05/30/22 05/16/22 Rx carvediloL [Coreg] 25 mg PO BID 30 Days #60 tab 05/12/22 05/30/22 05/16/22 Rx Sevelamer Carbonate [Renvela] 1,600 mg PO TIDWM 05/30/22 05/30/22 05/16/22 History Citalopram [Celexa] 40 mg PO DAILY tablet 06/01/22 Unknown Rx ISOSORBIDE MONOnitrate [Imdur ER] 120 mg PO QDAY tablet 06/01/22 Unknown Rx Spironolactone [Aldactone] 100 mg PO QDAY tablet 06/01/22 Unknown Rx hydrALAZINE [Apresoline TAB] 50 mg PO Q8HR tablet 06/01/22 Unknown Rx Active Meds: Active Medications Acetaminophen (Acetaminophen 325 Mg Tab) 650 mg PO Q4H PRN PRN Reason: Pain MILD(1-3)/Fever >100.5/CLARK Albuterol (Albuterol 2.5 Mg/3 Ml Nebu) 2.5 mg IH Q3HRT PRN PRN Reason: Shortness Of Breath Albuterol/Ipratropium (Ipratropium/Albuterol Sulfate 3 Ml Ampul.Neb) 1 ampul IH Q6HRT [facility] Aspirin (Aspirin 325 Mg Tab) 325 mg PO QDAY [facility] Last Admin: 07/30/22 11:58 Dose: 325 mg Atorvastatin Calcium (Atorvastatin 40 Mg Tab) 40 mg PO QHS [facility] Bumetanide (Bumetanide 1 Mg Tab) 1 mg PO BID [facility] Last Admin: 07/30/22 12:17 Dose: Not Given Carvedilol (Carvedilol 25 Mg Tab) 25 mg PO BID [facility] Last Admin: 07/30/22 12:18 Dose: Not Given Citalopram Hydrobromide (Citalopram 20 Mg Tab) 40 mg PO DAILY [facility] Last Admin: 07/30/22 12:18 Dose: Not Given Dextrose (Dextrose 50% In Water (25gm) 50 Ml Syringe) 50 ml IV Q30MIN PRN; Protocol PRN Reason: Hypoglycemia Epoetin Jb-epbx (Epoetin Jb-Epbx 10,000 Unit/1 Ml Vial) 10,000 unit IV EVELINA PRN PRN Reason: hemodialysis Famotidine (Famotidine 20 Mg/2 Ml Inj) 20 mg IV BID [facility] Last Admin: 07/30/22 12:29 Dose: 20 mg Heparin Sodium (Porcine) (Heparin 10,000 Units/10 Ml Vial) 3,000 unit IV EVELINA PRN PRN Reason: hemodialysis Hydralazine HCl (Hydralazine 25 Mg Tab) 50 mg PO Q8HR [facility] Epinephrine 10 mg/ Sodium (Chloride) 250 mls @ 11.907 mls/hr IV DIRECT KRISTINA; Protocol Last Titration: 07/30/22 13:25 Dose: 0.2 mcg/kg/min, 23.814 mls/hr Fentanyl Citrate (Fentanyl Drip Premix) 1,000 mcg in 100 mls @ 2.5 mls/hr IV TITR KRISTINA; Protocol Sodium Chloride (Nacl 0.9%) 100 mls @ 999 mls/hr IV EVELINA PRN PRN Reason: Hypotension Dopamine HCl/Dextrose (Dopamine 800 Mg/D5w 250ml) 800 mg in 250 mls @ 2.977 mls /hr IV TITR ONE; Protocol Stop: 08/02/22 22:53 Last Titration: 07/30/22 10:00 Dose: 10 mcg/kg/min, 14.884 mls/hr Insulin Glargine (Insulin Glargine 100 Units/Ml) 20 units SUB-Q QAM [facility] Last Admin: 07/30/22 10:40 Dose: Not Given Insulin Human Lispro (Insulin Lispro 100 Unit/Ml) 0 unit SUB-Q Q6HR [facility]; Protocol Last Admin: 07/30/22 12:19 Dose: Not Given Isosorbide Mononitrate (Isosorbide Mononitrate Er 60 Mg Tab) 120 mg PO QDAY [facility] Last Admin: 07/30/22 12:17 Dose: Not Given Morphine Sulfate (Morphine 2 Mg/1 Ml Inj) 2 mg IV Q4H PRN PRN Reason: Pain, Moderate (4-6) Morphine Sulfate (Morphine 4 Mg/1 Ml Inj) 4 mg IV Q4H PRN PRN Reason: Pain , Severe (7-10) Nifedipine (Nifedipine Xl 90 Mg Tab) 90 mg PO QDAY [facility] Last Admin: 07/30/22 10:37 Dose: Not Given Ondansetron HCl (Ondansetron 4 Mg/2 Ml Inj) 4 mg IV Q8H PRN PRN Reason: Nausea And Vomiting Sevelamer Carbonate (Sevelamer Carbonate 800 Mg Tab) 1,600 mg PO TIDWM [facility] Sodium Chloride (Sodium Chloride 0.9% 10 Ml Flush Syringe) 10 ml IV BID [facility] Last Admin: 07/30/22 10:37 Dose: 10 ml Sodium Chloride (Sodium Chloride 0.9% 10 Ml Flush Syringe) 10 ml IV PRN PRN PRN Reason: LINE FLUSH Review of Systems ROS unobtainable: due to endotracheal tube, due to mental status Exam - Vital Signs Vital signs: Vital Signs Pulse Ox 100 07/30/22 06:37 Results - Lab Results 07/30/22 06:34 07/30/22 06:34 Most recent lab results ABG pH 7.379 pH Units (7.350-7.450) 07/30/22 06:56 ABG pCO2 37.8 mm Hg 07/30/22 06:56 ABG pO2 95.7 mm Hg (80.0-90.0) H 07/30/22 06:56 ABG HCO3 21.8 mmol/L (20.0-26.0) 07/30/22 06:56 ABG O2 Saturation 97.4 % (95.0-99.0) 07/30/22 06:56 Calcium 8.7 mg/dL (8.4-10.2) 07/30/22 06:34 Assessment and Plan 1. ESRD: Patient is on maintenance hemodialysis, MWF schedule. Hemodialysis: today. 2. FEN: Hyperkalemia, HD today. Anion-gap metabolic acidosis, HD today, monitor. UF with HD as tolerated. Monitor lytes and volume status. 3. S/p multiple Cardiac arrest: Elevated troponin. H/o CAD s/p CABG. Bradyarrhythmia. Currently on Dopamine and Epinephrine gtt. Cardiology consulted. 4. Shock: Currently on Dopamine and Epinephrine gtt. Monitor BP. 5. HFrEF. 6. Acute hypoxic respiratory failure, POA: Intubated on 07/30/22. on MV. 7. Acute metabolic encephalopathy: S/p Cardiac arrest. Monitor. 8. DM-2: Monitor. 9. Normocytic Anemia, POA: 2/2 ESRD. Epogen with HD as needed. Outpatient HD chair at [facility]. Subjective: Patient was seen and examined at the bedside. Examination: General appearance: well-developed, appears stated age, no distress, intubated, on vent HEENT: atraumatic, no icterus, pupils dilated and fixed Neck: trachea midline Respiratory: ctab Heart: S1S2, regular, no murmur Abdomen: soft, bowel sounds heard, NT Integumentary: no obvious rash Neurologic: not responding Ext: no edema Hemodialysis access: R IJ tunnel catheter
--- NOTE | 2022-07-30 15:02 | Event Note ---
Date: 07/30/22 I saw and evaluated the patient at bedside. Patient had cardiac arrest x3 episode per ER doctor. Prior to the arrest, rhythm was sinus bradycardia. Patient was administered epinephrine, calcium, bicarb and was defibrillated for the emergency room RN. He has an ejection fraction of 40-45% per cardiology. Labs are significant for potassium of 6.2, creatinine 7.9, negative UDS. Patient son was present at bedside. Son was unable to communicate patient prior medical history so patient's sister was called. Sister Sharon Kim, stated th at the patient had recently relocated from [place]. He was living in [place] 6 months ago with prior partner. Patient has prior history of CAD with CABG approximately 10 years ago per sister. When patient's health began declining, patient's sister stated that she had gone to pick patient up so that he can live with her. He appears to be full assist per my conversation with sister as she helps with ADLs (feeding, bathing, tranportationt). That said, he has been compliant with medications and follow up appointments in the last 6 months. Patient is a Friday dialysis patient. Typically the patient's sister would help assist with transport however, transportation was recently setup to make dialysis. The patient however, had difficulty utilizing this tranportation and was left at home on several occasions per son's account. He has missed at least 1 dialysis session due to the fact that he was unable to make it to the bus on time. Assessment #Cardiac arrest x3 status post ROSC #Coronary artery disease #Bradyarrhythmia #History of prior CABG procedure x10 years ago - possibly from electrolyte disturbance from missed dialysis sessions in the setting of prior CAD/CABG hx. - initiated on asa, atorvastatin, coreg, imdur, procardia - cardiology consulted, D/w Dr Rodrigues. - currently on dopamine and epinephrine gtt #Elevated troponin - elevated on admission - likely from cardiac arrest in the setting of renal failure #Acute Systolic Heart Failure - Echo 05/11/2022-EF 40 to 45%. Moderate concentric LVH. Transmitral Doppler flow pattern suggests restrictive physiology. Moderate tricuspid regurgitation. Moderate pulmonary hypertension. Moderate tricuspid regurgitation. Right atrium moderately dilated. Left atrium mildly dilated. IVC dilated. IVC collapses less than 50% inspiration - GDMT as outlined above. #Acute hypoxic respiratory failure, intubated on 07/30/22 - on MV. intubated 07/30 - keep off sedation - PCCM consulte,d/w Dr. Jc # Acute metabolic encephalopathy - will likely need assessment of mental status off of sedation - unclear if patient is anoxic, will consider CT brain tomorrow. #ESRD on hemodialysis, M/W/F #Hyperkalemia - correction of K with HD. - nephrology consulted - stat dialysis ordered by nephrology - trend electrolytes on serial renal profile #Type 2 diabetes with hyperglycemia - SSI, lantus ordered #Hypertension Dispo: MICU. Prognosis guarded/poor. unclear downtime, multiple arrests. Communicated to both family members to grave nature of patient's current clinical state The high probability of a clinically significant, sudden or life threatening deterioration of the [multi] system(s) required my full and direct attention, intervention and personal management. The aggregate critical care time was [60] minutes. This time is in addition to time spent performing reported procedures but includes the following: [x] Data Review and interpretation [x] Patient assessment and monitoring of vital signs [x] Documentation [x] Medication orders and management
[2022-07-30] MEDS: hydrALAZINE 25 MG TAB PO SCH ×2 (15:16→21:52)
[2022-07-30] MEDS: IPRATROPIUM/ALBUTEROL SULFATE 3 ML AMPUL.NEB IH SCH ×2 (15:17→20:06)
[2022-07-30] MEDS: SEVELAMER CARBONATE 800 MG TAB PO SCH ×2 (15:17→18:33)
[2022-07-30] MEDS: HEPARIN 10,000 UNITS/10 ML VIAL IV PRN (15:23)
[2022-07-30] MEDS ORDERED: CALCIUM CHLORIDE 1,000 MG/10 ML SYRINGE IV ONE (20:55)
[2022-07-30] MEDS ORDERED: AMIODARONE 150 MG/3 ML INJ IV ONE (20:55)
[2022-07-30] MEDS ORDERED: EPINEPHrine 1 MG/10 ML SYRINGE ONE (20:55)
[2022-07-30] MEDS ORDERED: SODIUM BICARB 8.4% 50 MEQ/50 ML SYRINGE IV ONE (20:55)
[2022-07-31] MEDS: INSULIN LISPRO 100 UNIT/ML SUB-Q SCH ×4 (00:34→18:51)
[2022-07-31] MEDS: IPRATROPIUM/ALBUTEROL SULFATE 3 ML AMPUL.NEB IH SCH ×4 (02:35→19:24)
[2022-07-31 05:04] LABS: Basophils % (Auto) 0.2 % (0.0-1.8); Eosinophils % (Auto) 0.1 % (0.0-4.3); Hematocrit 31.2 % (35.5-45.6); Hemoglobin 10.1 gm/dl (11.8-15.2); Lymphocytes # (Auto) 0.5 K/mm3 (1.2-5.4); Mean Corpuscular HGB Conc 33 % (32-34); Mean Corpuscular Volume 88 fl (84-94); Monocytes # (Auto) 0.5 K/mm3 (0.0-0.8); Monocytes % (Auto) 5.1 % (0.0-7.3); Platelet Count 168 K/mm3 (140-440); Red Blood Count 3.57 M/mm3 (3.65-5.03); Red Cell Distribution Width 17.3 % (13.2-15.2)
[2022-07-31 05:21] LABS: Calcium 8.7 mg/dL (8.4-10.2)
[2022-07-31 05:23] LABS: ABG Base Excess 1.4 mmol/L (-2.0-3.0); ABG HCO3 25.9 mmol/L (20.0-26.0); ABG Methemoglobin 0.6 % (0.0-1.5); ABG Oxygen Saturation 99.4 % (95.0-99.0); ABG PCO2 40.5 mm Hg; ABG PH 7.424 pH Units (7.350-7.450); ABG PO2 251.7 mm Hg (80.0-90.0)
[2022-07-31] MEDS: hydrALAZINE 25 MG TAB PO SCH ×3 (06:20→22:37)
[2022-07-31] MEDS: carvediloL 25 MG TAB PO SCH ×2 (09:40→23:07)
[2022-07-31] MEDS: ASPIRIN 325 MG TAB PO SCH (09:40)
[2022-07-31] MEDS: CITALOPRAM 20 MG TAB PO SCH (09:41)
[2022-07-31] MEDS: SEVELAMER CARBONATE 800 MG TAB PO SCH (09:41)
[2022-07-31] MEDS: BUMETANIDE 1 MG TAB PO SCH ×2 (09:41→23:06)
--- NOTE | 2022-07-31 11:13 | Progress Note ---
Assessment and Plan 1. ESRD: Patient is on maintenance hemodialysis, MWF schedule. Hemodialysis: 07/30. HD today. 2. FEN: Hyperkalemia, HD today. Anion-gap metabolic acidosis, HD today, monitor. UF with HD as tolerated. Monitor lytes and volume status. 3. S/p multiple Cardiac arrest: Elevated troponin. H/o CAD s/p CABG. Bradyarrhythmia. Followed by Cards. 4. Shock: Improved. Monitor BP. 5. HFrEF. 6. Acute hypoxic respiratory failure, POA: Intubated on 07/30/22. on MV. 7. Anoxic encephalopathy: S/p Cardiac arrest. Monitor. 8. DM-2: Monitor. 9. Normocytic Anemia, POA: 2/2 ESRD. Epogen with HD as needed. Outpatient HD chair at [facility]. Subjective: Patient was seen and examined at the bedside. Examination: General appearance: well-developed, appears stated age, no distress, intubated, on vent HEENT: atraumatic, no icterus, pupils dilated and fixed Neck: trachea midline Respiratory: ctab Heart: S1S2, regular, no murmur Abdomen: soft, bowel sounds heard, NT Integumentary: no obvious rash Neurologic: not responding Ext: LE edema Hemodialysis access: R IJ tunnel catheter Subjective Date of service: 07/31/22 Objective - Vital Signs Vital signs: Vital Signs - 12hr 07/30/22 07/30/22 07/30/22 23:21 23:30 23:41 Temperature Pulse Rate 71 71 70 Pulse Rate [ Bilateral] Pulse Rate [ From Monitor] Respiratory 18 18 18 Rate Respiratory Rate [Bilateral ] Blood Pressure 144/100 139/97 139/97 O2 Sat by Pulse 100 100 100 Oximetry 07/30/22 07/30/22 07/31/22 23:47 23:51 00:00 Temperature 99.1 F Pulse Rate 69 70 69 Pulse Rate [ Bilateral] Pulse Rate [ 69 From Monitor] Respiratory 18 18 18 Rate Respiratory Rate [Bilateral ] Blood Pressure 133/93 133/93 148/105 O2 Sat by Pulse 100 100 100 Oximetry 07/31/22 07/31/22 07/31/22 00:11 00:21 00:30 Temperature Pulse Rate 70 69 69 Pulse Rate [ Bilateral] Pulse Rate [ From Monitor] Respiratory 18 18 18 Rate Respiratory Rate [Bilateral ] Blood Pressure 129/90 132/91 138/95 O2 Sat by Pulse 100 100 99 Oximetry 07/31/22 07/31/22 07/31/22 00:40 00:43 00:50 Temperature 99.1 F Pulse Rate 70 70 Pulse Rate [ Bilateral] Pulse Rate [ From Monitor] Respiratory 18 18 Rate Respiratory Rate [Bilateral ] Blood Pressure 138/95 146/102 O2 Sat by Pulse 100 100 Oximetry 07/31/22 07/31/22 07/31/22 01:00 01:10 01:20 Temperature Pulse Rate 69 69 68 Pulse Rate [ Bilateral] Pulse Rate [ From Monitor] Respiratory 18 18 18 Rate Respiratory Rate [Bilateral ] Blood Pressure 148/105 146/102 146/103 O2 Sat by Pulse 99 100 100 Oximetry 07/31/22 07/31/22 07/31/22 01:30 01:40 01:50 Temperature Pulse Rate 68 67 67 Pulse Rate [ Bilateral] Pulse Rate [ From Monitor] Respiratory 18 18 18 Rate Respiratory Rate [Bilateral ] Blood Pressure 142/100 142/100 138/97 O2 Sat by Pulse 100 100 100 Oximetry 07/31/22 07/31/22 07/31/22 02:00 02:10 02:20 Temperature Pulse Rate 67 67 68 Pulse Rate [ Bilateral] Pulse Rate [ From Monitor] Respiratory 18 18 18 Rate Respiratory Rate [Bilateral ] Blood Pressure 138/98 138/98 137/96 O2 Sat by Pulse 100 100 100 Oximetry 07/31/22 07/31/22 07/31/22 02:30 02:34 02:40 Temperature Pulse Rate 68 68 Pulse Rate [ 68 Bilateral] Pulse Rate [ From Monitor] Respiratory 18 18 Rate Respiratory 18 Rate [Bilateral ] Blood Pressure 138/97 138/97 O2 Sat by Pulse 100 100 Oximetry 07/31/22 07/31/22 07/31/22 02:50 03:00 03:10 Temperature Pulse Rate 67 66 66 Pulse Rate [ Bilateral] Pulse Rate [ From Monitor] Respiratory 18 18 18 Rate Respiratory Rate [Bilateral ] Blood Pressure 137/95 136/94 138/97 O2 Sat by Pulse 100 100 100 Oximetry 07/31/22 07/31/22 07/31/22 03:20 03:30 03:34 Temperature 98.6 F Pulse Rate 66 65 Pulse Rate [ Bilateral] Pulse Rate [ From Monitor] Respiratory 18 18 Rate Respiratory Rate [Bilateral ] Blood Pressure 135/93 135/95 O2 Sat by Pulse 100 100 Oximetry 07/31/22 07/31/22 07/31/22 03:40 03:50 04:00 Temperature Pulse Rate 65 66 68 Pulse Rate [ Bilateral] Pulse Rate [ 68 From Monitor] Respiratory 18 18 16 Rate Respiratory Rate [Bilateral ] Blood Pressure 136/94 137/95 141/97 O2 Sat by Pulse 100 100 100 Oximetry 07/31/22 07/31/22 07/31/22 04:10 04:20 04:30 Temperature Pulse Rate 66 67 67 Pulse Rate [ Bilateral] Pulse Rate [ From Monitor] Respiratory 18 18 18 Rate Respiratory Rate [Bilateral ] Blood Pressure 141/97 142/97 144/98 O2 Sat by Pulse 100 100 100 Oximetry 07/31/22 07/31/22 07/31/22 04:33 04:40 04:50 Temperature Pulse Rate 67 66 66 Pulse Rate [ Bilateral] Pulse Rate [ From Monitor] Respiratory 17 18 Rate Respiratory Rate [Bilateral ] Blood Pressure 144/98 144/98 144/99 O2 Sat by Pulse 100 100 100 Oximetry 07/31/22 07/31/22 07/31/22 05:00 05:10 05:20 Temperature Pulse Rate 66 66 66 Pulse Rate [ Bilateral] Pulse Rate [ From Monitor] Respiratory 18 18 18 Rate Respiratory Rate [Bilateral ] Blood Pressure 145/98 145/98 146/98 O2 Sat by Pulse 100 100 100 Oximetry 07/31/22 07/31/22 07/31/22 05:30 05:40 05:50 Temperature Pulse Rate 66 65 65 Pulse Rate [ Bilateral] Pulse Rate [ From Monitor] Respiratory 18 18 18 Rate Respiratory Rate [Bilateral ] Blood Pressure 147/100 147/100 147/98 O2 Sat by Pulse 100 100 100 Oximetry 07/31/22 07/31/22 07/31/22 06:00 06:10 06:20 Temperature Pulse Rate 65 65 65 Pulse Rate [ Bilateral] Pulse Rate [ From Monitor] Respiratory 18 18 18 Rate Respiratory Rate [Bilateral ] Blood Pressure 147/99 147/99 148/100 O2 Sat by Pulse 100 100 100 Oximetry 07/31/22 07/31/22 07/31/22 06:30 06:40 06:50 Temperature Pulse Rate 64 64 64 Pulse Rate [ Bilateral] Pulse Rate [ From Monitor] Respiratory 18 18 18 Rate Respiratory Rate [Bilateral ] Blood Pressure 138/96 138/96 132/90 O2 Sat by Pulse 100 100 100 Oximetry 07/31/22 07/31/22 07/31/22 07:00 07:10 07:20 Temperature Pulse Rate 63 63 63 Pulse Rate [ Bilateral] Pulse Rate [ From Monitor] Respiratory 18 18 18 Rate Respiratory Rate [Bilateral ] Blood Pressure 126/86 126/86 124/85 O2 Sat by Pulse 100 100 100 Oximetry 07/31/22 07/31/22 07/31/22 07:30 07:40 07:50 Temperature Pulse Rate 63 63 63 Pulse Rate [ Bilateral] Pulse Rate [ From Monitor] Respiratory 18 18 18 Rate Respiratory Rate [Bilateral ] Blood Pressure 127/86 127/86 128/85 O2 Sat by Pulse 99 100 100 Oximetry 07/31/22 07/31/22 07/31/22 08:00 08:04 08:05 Temperature 96 F L Pulse Rate 62 Pulse Rate [ 65 Bilateral] Pulse Rate [ From Monitor] Respiratory 18 Rate Respiratory 18 Rate [Bilateral ] Blood Pressure 126/86 O2 Sat by Pulse 100 100 Oximetry 07/31/22 07/31/22 07/31/22 08:10 08:20 08:30 Temperature Pulse Rate 62 63 63 Pulse Rate [ Bilateral] Pulse Rate [ From Monitor] Respiratory 18 18 18 Rate Respiratory Rate [Bilateral ] Blood Pressure 126/86 126/86 135/89 O2 Sat by Pulse 100 100 99 Oximetry 07/31/22 07/31/22 07/31/22 08:40 08:50 09:00 Temperature Pulse Rate 63 63 63 Pulse Rate [ Bilateral] Pulse Rate [ From Monitor] Respiratory 18 18 18 Rate Respiratory Rate [Bilateral ] Blood Pressure 135/89 135/87 138/89 O2 Sat by Pulse 100 100 100 Oximetry 07/31/22 07/31/22 07/31/22 09:10 09:20 09:30 Temperature Pulse Rate 64 64 64 Pulse Rate [ Bilateral] Pulse Rate [ From Monitor] Respiratory 18 18 18 Rate Respiratory Rate [Bilateral ] Blood Pressure 138/89 139/90 140/90 O2 Sat by Pulse 100 100 98 Oximetry 07/31/22 07/31/22 07/31/22 09:40 09:50 10:00 Temperature Pulse Rate 65 65 65 Pulse Rate [ Bilateral] Pulse Rate [ From Monitor] Respiratory 15 18 18 Rate Respiratory Rate [Bilateral ] Blood Pressure 140/90 137/91 136/90 O2 Sat by Pulse 100 100 99 Oximetry 07/31/22 07/31/2207/31/22 10:10 10:20 10:30 Temperature Pulse Rate 64 64 63 Pulse Rate [ Bilateral] Pulse Rate [ From Monitor] Respiratory 18 18 18 Rate Respiratory Rate [Bilateral ] Blood Pressure 136/90 140/90 135/90 O2 Sat by Pulse 100 100 100 Oximetry - Lab 07/31/22 04:20 07/31/22 04:20 Most recent lab results ABG pH 7.424 pH Units (7.350-7.450) 07/31/22 04:45 ABG pCO2 40.5 mm Hg 07/31/22 04:45 ABG pO2 251.7 mm Hg (80.0-90.0) H 07/31/22 04:45 ABG HCO3 25.9 mmol/L (20.0-26.0) 07/31/22 04:45 ABG O2 Saturation 99.4 % (95.0-99.0) H 07/31/22 04:45 Calcium 8.7 mg/dL (8.4-10.2) 07/31/22 04:20 Medications & Allergies - Medications Allergies/Adverse Reactions: Allergies No Known Allergies Allergy (Verified 05/30/22 15:01) Home Medications: Home Medications Medication Instructions Recorded Confirmed Last Taken Type AtorvaSTATin [Lipitor] 40 mg PO QHS 05/11/22 05/30/22 05/16/22 History Bumetanide [Bumex 1 mg tab] 1 mg PO BID 05/11/22 05/30/22 05/16/22 History Insulin Glargine,Hum.rec.anlog 20 unit SQ QAM 30 Days #1 box 05/12/22 05/30/22 05/16/22 Rx [Lantus Solostar] Insulin Regular, Human [Novolin R 5 unit SQ AC 30 Days #1 box 05/12/22 05/30/22 05/16/22 Rx Flexpen] NIFEdipine XL [Procardia Xl] 90 mg PO QDAY 30 Days #30 tablet 05/12/22 05/30/22 05/16/22 Rx carvediloL [Coreg] 25 mg PO BID 30 Days #60 tab 05/12/22 05/30/22 05/16/22 Rx Sevelamer Carbonate [Renvela] 1,600 mg PO TIDWM 05/30/22 05/30/22 05/16/22 History Citalopram [Celexa] 40 mg PO DAILY tablet 06/01/22 Unknown Rx ISOSORBIDE MONOnitrate [Imdur ER] 120 mg PO QDAY tablet 06/01/22 Unknown Rx Spironolactone [Aldactone] 100 mg PO QDAY tablet 06/01/22 Unknown Rx hydrALAZINE [Apresoline TAB] 50 mg PO Q8HR tablet 06/01/22 Unknown Rx Active Medications: Generic Name Dose Route Start Last Admin Trade Name Freq PRN Reason Stop Dose Admin Acetaminophen 650 mg 07/30/22 09:30 Acetaminophen 325 Mg Tab PO Q4H PRN Pain MILD(1-3)/Fever >100.5/CLARK Albuterol 2.5 mg 07/30/22 09:19 Albuterol 2.5 Mg/3 Ml Nebu IH Q3HRT PRN Shortness Of Breath Albuterol/Ipratropium 1 ampul 07/30/22 14:00 07/31/22 08:04 Ipratropium/Albuterol Sulfate 3 Ml Ampul.Neb IH 1 ampul Q6HRT KRISTINA Administration Aspirin 325 mg 07/30/22 10:00 07/31/22 09:40 Aspirin 325 Mg Tab PO 325 mg QDAY KRISTINA Administration Atorvastatin Calcium 40 mg 07/30/22 22:00 07/30/22 21:52 Atorvastatin 40 Mg Tab PO 40 mg QHS KRISTINA Administration Bumetanide 1 mg 07/30/22 10:00 07/31/22 09:41 Bumetanide 1 Mg Tab PO 1 mg BID KRISTINA Administration Carvedilol 25 mg 07/30/22 11:00 07/31/22 09:40 Carvedilol 25 Mg Tab PO 25 mg BID KRISTINA Administration Citalopram Hydrobromide 40 mg 07/30/22 10:00 07/31/22 09:41 Citalopram 20 Mg Tab PO 40 mg DAILY KRISTINA Administration Dextrose 50 ml 07/30/22 09:19 Dextrose 50% In Water (25gm) 50 Ml Syringe IV Q30MIN PRN Hypoglycemia Protocol Epoetin Jb-epbx 10,000 unit 07/30/22 09:00 07/30/22 18:23 Epoetin Jb-Epbx 10,000 Unit/1 Ml Vial IV 10,000 unit EVELINA PRN Administration hemodialysis Famotidine 20 mg 07/31/22 10:00 Famotidine 20 Mg/2 Ml Inj IV DAILY [facility] Heparin Sodium (Porcine) 3,000 unit 07/30/22 09:00 07/30/22 15:23 Heparin 10,000 Units/10 Ml Vial IV 3,000 unit EVELINA PRN Administration hemodialysis Hydralazine HCl 50 mg 07/30/22 14:00 07/31/22 06:20 Hydralazine 25 Mg Tab PO 50 mg Q8HR KRISTINA Administration Fentanyl Citrate 1,000 mcg in 100 mls @ 2.5 mls/hr 07/30/22 08:00 Fentanyl Drip Premix IV TITR [facility] Protocol 25 MCG/HR Sodium Chloride 100 mls @ 999 mls/hr 07/30/22 09:00 Nacl 0.9% IV EVELINA PRN Hypotension Insulin Glargine 20 units 07/30/22 10:30 07/30/22 10:40 Insulin Glargine 100 Units/Ml SUB-Q Not Given QAM [facility] Insulin Human Lispro 0 unit 07/30/22 12:00 07/31/22 06:16 Insulin Lispro 100 Unit/Ml SUB-Q Not Given Q6HR [facility] Protocol Ondansetron HCl 4 mg 07/30/22 10:00 Ondansetron 4 Mg/2 Ml Inj IV Q8H PRN Nausea And Vomiting Sodium Chloride 10 ml 07/30/22 10:00 07/31/22 09:42 Sodium Chloride 0.9% 10 Ml Flush Syringe IV 10 ml BID KRISTINA Administration Sodium Chloride 10 ml 07/30/22 10:00 Sodium Chloride 0.9% 10 Ml Flush Syringe IV PRN PRN LINE FLUSH
[2022-07-31] MEDS: INSULIN GLARGINE 100 UNITS/ML SUB-Q SCH (11:15)
[2022-07-31] MEDS: FAMOTIDINE 20 MG/2 ML INJ IV SCH (13:05)
--- NOTE | 2022-07-31 13:56 | Consultation ---
History of Present Illness Consult date: 07/31/22 Reason for consult: other (cardiac arrest) History of present illness: 51 y/o male admitted via ED with altered mental state and acute respiratory failure. Pt intubated in ED and then coded x3. Currently unresponsive on vent. Off pressors. Pupils are fixed and dilated. No cough no gag. Remainder of the review is negative or unobtainable. Past History Past Medical History: diabetes, dialysis, ESRD, hypertension, renal failure, stroke Past Surgical History: bowel surgery (Hemodialysis catheter), Other Social history: other (Unable to obtain) Family history: other (Unable to obtain) Medications and Allergies Allergies Allergy/AdvReac Type Severity Reaction Status Date / Time No Known Allergies Allergy Verified 05/30/22 15:01 Home Medications Medication Instructions Recorded Confirmed Last Taken Type AtorvaSTATin [Lipitor] 40 mg PO QHS 05/11/22 05/30/22 05/16/22 History Bumetanide [Bumex 1 mg tab] 1 mg PO BID 05/11/22 05/30/22 05/16/22 History Insulin Glargine,Hum.rec.anlog 20 unit SQ QAM 30 Days #1 box 05/12/22 05/30/22 05/16/22 Rx [Lantus Solostar] Insulin Regular, Human [Novolin R 5 unit SQ AC 30 Days #1 box 05/12/22 05/30/22 05/16/22 Rx Flexpen] NIFEdipine XL [Procardia Xl] 90 mg PO QDAY 30 Days #30 tablet 05/12/22 05/30/22 05/16/22 Rx carvediloL [Coreg] 25 mg PO BID 30 Days #60 tab 05/12/22 05/30/22 05/16/22 Rx Sevelamer Carbonate [Renvela] 1,600 mg PO TIDWM 05/30/22 05/30/22 05/16/22 His tory Citalopram [Celexa] 40 mg PO DAILY tablet 06/01/22 Unknown Rx ISOSORBIDE MONOnitrate [Imdur ER] 120 mg PO QDAY tablet 06/01/22 Unknown Rx Spironolactone [Aldactone] 100 mg PO QDAY tablet 06/01/22 Unknown Rx hydrALAZINE [Apresoline TAB] 50 mg PO Q8HR tablet 06/01/22 Unknown Rx Active Meds: Active Medications Acetaminophen (Acetaminophen 325 Mg Tab) 650 mg PO Q4H PRN PRN Reason: Pain MILD(1-3)/Fever >100.5/CLARK Albuterol (Albuterol 2.5 Mg/3 Ml Nebu) 2.5 mg IH Q3HRT PRN PRN Reason: Shortness Of Breath Albuterol/Ipratropium (Ipratropium/Albuterol Sulfate 3 Ml Ampul.Neb) 1 ampul IH Q6HRT [facility] Last Admin: 07/31/22 08:04 Dose: 1 ampul Aspirin (Aspirin 325 Mg Tab) 325 mg PO QDAY [facility] Last Admin: 07/31/22 09:40 Dose: 325 mg Atorvastatin Calcium (Atorvastatin 40 Mg Tab) 40 mg PO QHS [facility] Last Admin: 07/30/22 21:52 Dose: 40 mg Bumetanide (Bumetanide 1 Mg Tab) 1 mg PO BID [facility] Last Admin: 07/31/22 09:41 Dose: 1 mg Carvedilol (Carvedilol 25 Mg Tab) 25 mg PO BID [facility] Last Admin: 07/31/22 09:40 Dose: 25 mg Citalopram Hydrobromide (Citalopram 20 Mg Tab) 40 mg PO DAILY [facility] Last Admin: 07/31/22 09:41 Dose: 40 mg Dextrose (Dextrose 50% In Water (25gm) 50 Ml Syringe) 50 ml IV Q30MIN PRN; Protocol PRN Reason: Hypoglycemia Epoetin Jb-epbx (Epoetin Jb-Epbx 10,000 Unit/1 Ml Vial) 10,000 unit IV EVELINA PRN PRN Reason: hemodialysis Last Admin: 07/30/22 18:23 Dose: 10,000 unit Famotidine (Famotidine 20 Mg/2 Ml Inj) 20 mg IV DAILY [facility] Last Admin: 07/31/22 13:05 Dose: 20 mg Heparin Sodium (Porcine) (Heparin 10,000 Units/10 Ml Vial) 3,000 unit IV EVELINA PRN PRN Reason: hemodialysis Last Admin: 07/30/22 15:23 Dose: 3,000 unit Hydralazine HCl (Hydralazine 25 Mg Tab) 50 mg PO Q8HR [facility] Last Admin: 07/31/22 13:02 Dose: 50 mg Fentanyl Citrate (Fentanyl Drip Premix) 1,000 mcg in 100 mls @ 2.5 mls/hr IV TI TR KRISTINA; Protocol Sodium Chloride (Nacl 0.9%) 100 mls @ 999 mls/hr IV EVELINA PRN PRN Reason: Hypotension Insulin Glargine (Insulin Glargine 100 Units/Ml) 20 units SUB-Q QAM KRISTINA Last Admin: 07/31/22 11:15 Dose: Not Given Insulin Human Lispro (Insulin Lispro 100 Unit/Ml) 0 unit SUB-Q Q6HR KRISTINA; Pro tocol Last Admin: 07/31/22 13:01 Dose: 2 unit Ondansetron HCl (Ondansetron 4 Mg/2 Ml Inj) 4 mg IV Q8H PRN PRN Reason: Nausea And Vomiting Sodium Chloride (Sodium Chloride 0.9% 10 Ml Flush Syringe) 10 ml IV BID [facility] Last Admin: 07/31/22 09:42 Dose: 10 ml Sodium Chloride (Sodium Chloride 0.9% 10 Ml Flush Syringe) 10 ml IV PRN PRN PRN Reason: LINE FLUSH Review of Systems ROS unobtainable: due to endotracheal tube, due to mental status Physical Examination Vital signs: Vital Signs Pulse Ox 100 07/30/22 06:37 General appearance: comatose Eyes: non-icteric ENT: other (orally intubated) Neck: supple Effort: normal Ascultation: Bilateral: clear, rales Results - Laboratory Findings CBC and BMP: 07/31/22 04:20 07/31/22 04:20 ABG ABG pH 7.424 pH Units (7.350-7.450) 07/31/22 04:45 ABG pCO2 40.5 mm Hg 07/31/22 04:45 ABG pO2 251.7 mm Hg (80.0-90.0) H 07/31/22 04:45 ABG O2 Saturation 99.4 % (95.0-99.0) H 07/31/22 04:45 Abnormal lab findings: Abnormal Labs 07/30/22 07/30/22 07/30/22 06:34 06:34 06:34 RBC 3.11 L Hgb 8.9 L Hct 27.1 L RDW 17.3 H Lymph % (Auto) Lymph # (Auto) Seg Neutrophils % 71.5 H Seg Neutrophils # ABG pO2 ABG O2 Saturation ABG Base Excess ABG Hemoglobin Sodium 135 L Potassium 6.2 H* Chloride 97.0 L Carbon Dioxide 21 L BUN 69 H Creatinine 7.3 H Glucose 335 H POC Glucose Troponin T 0.117 H* Albumin 3.6 L LDL Cholesterol Direct 24 L 07/30/22 07/30/22 07/31/22 06:56 18:07 00:33 RBC Hgb Hct RDW Lymph % (Auto) Lymph # (Auto) Seg Neutrophils % Seg Neutrophils # ABG pO2 95.7 H ABG O2 Saturation ABG Base Excess -3.0 L ABG Hemoglobin 8.5 L Sodium Potassium Chloride Carbon Dioxide BUN Creatinine Glucose POC Glucose 186 H 174 H Troponin T Albumin LDL Cholesterol Direct 07/31/22 07/31/22 07/31/22 04:20 04:20 04:45 RBC 3.57 L Hgb 10.1 L Hct 31.2 L RDW 17.3 H Lymph % (Auto) 6.0 L Lymph # (Auto) 0.5 L Seg Neutrophils % 88.6 H Seg Neutrophils # 8.0 H ABG pO2 251.7 H ABG O2 Saturation 99.4 H ABG Base Excess ABG Hemoglobin 9.7 L Sodium 136 L Potassium 5.3 H Chloride Carbon Dioxide BUN 45 H Creatinine 4.8 H Glucose 166 H POC Glucose Troponin T Albumin LDL Cholesterol Direct 07/31/22 07/31/22 05:07 12:55 RBC Hgb Hct RDW Lymph % (Auto) Lymph # (Auto) Seg Neutrophils % Seg Neutrophils # ABG pO2 ABG O2 Saturation ABG Base Excess ABG Hemoglobin Sodium Potassium Chloride Carbon Dioxide BUN Creatinine Glucose POC Glucose 177 H 199 H Troponin T Albumin LDL Cholesterol Direct - Diagnostic Findings Chest x-ray: report reviewed Assessment and Plan 51 y/o male with cardiac arrest x3, acute respiratory failure now with en cephalopathy, concern for anoxic brain injury. 1. Will get Head CT today. 2. Continue to wean FiO2 for sats >88%. Continue PEEP at 8 3. HD per renal. They plan to dialyze today. 4. Guarded to poor prognosis. CCT 31
--- NOTE | 2022-07-31 14:00 | Progress Note ---
Assessment and Plan Pt is a 51-year-old male with a hx of ESRD on HD, HTN, and DM2 who presented via EMS for evaluation of lethargy today found to [facility] and s/p cardiac arrestx2 s/p Cardiac arrest Acute Encephalopathy Bradyarrhythmia Hyperkalemia ESRD on HD-nephrology following Anemia Elevated Tn HTN DM2 w/Hyperglycemia Echo 05/11/2022-EF 40 to 45%. Moderate concentric LVH. Transmitral Doppler flow pattern suggests restrictive physiology. Moderate tricuspid regurgitation. Moderate pulmonary hypertension. Moderate tricuspid regurgitation. Right atrium moderately dilated. Left atrium mildly dilated. IVC dilated. IVC collapses less than 50% inspiration Echo 07/30/2022-EF 40 to 45%. Moderate concentric LVH. Severe diastolic dysfunction present restrictive filling. Right ventricle is mildly dilated. Right ventricle systolic function is normal. Left atrium moderately dilated. Atrial septum is aneurysmal. Mild to moderate pulmonary regurgitation. Mild tricuspid regurgitation. Plan: Telemetry reviewed patient currently sinus 60s Troponin is noted to be elevated however not significantly different than troponin level on prior admission. Furthermore suspect troponin elevation in setting of end-stage renal disease in need of hemodialysis and patient s/p cardiac arrest Patient has been weaned off of pressors Patiently currently on aspirin, atorvastatin 40 mg p.o. nightly, carvedilol 25 mg p.o. twice daily, HD and correction of hyperK per Nephro. Continue to closely monitor Patient has fixed pupils and per conversation with staff absent gag reflex. Guarded prognosis Patient seen in conjunction with Dr. Rodrigues who agrees with this plan of care - Patient Problems (1) Bradycardia Current Visit: Yes Status: Acute (2) Cardiopulmonary arrest Current Visit: Yes Status: Acute (3) Hyperkalemia Current Visit: Yes Status: Acute (4) Advance care planning Current Visit: No Status: Acute (5) Diabetes mellitus Current Visit: No Status: Acute (6) ESRD needing dialysis Current Visit: No Status: Acute (7) Hypotension Current Visit: No Status: Acute Subjective Date of service: 07/31/22 Principal diagnosis: s/p cardiac arrest, ESRD on HD, AMS Interval history: Patient remains intubated . Patient's pupils are fixed and dilated sinus 60s on monitor Objective Vital Signs Temp Pulse Pulse Pulse Resp Resp BP 07/31/22 13:02 60 128/87 07/31/22 12:08 61 124/85 07/31/22 11:20 63 18 132/89 07/31/22 11:10 64 18 133/90 07/31/22 11:00 64 18 133/90 07/31/22 10:50 64 18 133/89 07/31/22 10:40 64 18 135/90 07/31/22 10:30 63 18 135/90 07/31/22 10:20 64 18 140/90 07/31/22 10:10 64 18 136/90 07/31/22 10:00 65 18 136/90 07/31/22 09:50 65 18 137/91 07/31/22 09:40 65 15 140/90 07/31/22 09:30 64 18 140/90 07/31/22 09:20 64 18 139/90 07/31/22 09:10 64 18 138/89 07/31/22 09:00 63 18 138/89 07/31/22 08:50 63 18 135/87 07/31/22 08:40 63 18 135/89 07/31/22 08:30 63 18 135/89 07/31/22 08:20 63 18 126/86 07/31/22 08:10 62 18 126/86 07/31/22 08:05 07/31/22 08:04 65 18 07/31/22 08:00 96 F L 62 18 126/86 07/31/22 07:50 63 18 128/85 07/31/22 07:40 63 18 127/86 07/31/22 07:30 63 18 127/86 07/31/22 07:20 63 18 124/85 07/31/22 07:10 63 18 126/86 07/31/22 07:00 63 18 126/86 07/31/22 06:50 64 18 132/90 07/31/22 06:40 64 18 138/96 07/31/22 06:30 64 18 138/96 07/31/22 06:20 65 18 148/100 07/31/22 06:10 65 18 147/99 07/31/22 06:00 65 18 147/99 07/31/22 05:50 65 18 147/98 07/31/22 05:40 65 18 147/100 07/31/22 05:30 66 18 147/100 07/31/22 05:20 66 18 146/98 07/31/22 05:10 66 18 145/98 07/31/22 05:00 66 18 145/98 07/31/22 04:50 66 18 144/99 07/31/22 04:40 66 17 144/98 07/31/22 04:33 67 144/98 07/31/22 04:30 67 18 144/98 07/31/22 04:20 67 18 142/97 07/31/22 04:10 66 18 141/97 07/31/22 04:00 68 68 16 141/97 07/31/22 03:50 66 18 137/95 07/31/22 03:40 65 18 136/94 07/31/22 03:34 98.6 F 07/31/22 03:30 65 18 135/95 07/31/22 03:20 66 18 135/93 07/31/22 03:10 66 18 138/97 07/31/22 03:00 66 18 136/94 07/31/22 02:50 67 18 137/95 07/31/22 02:40 68 18 138/97 07/31/22 02:34 68 18 07/31/22 02:30 68 18 138/97 07/31/22 02:20 68 18 137/96 07/31/22 02:10 67 18 138/98 07/31/22 02:00 67 18 138/98 07/31/22 01:50 67 18 138/97 07/31/22 01:40 67 18 142/100 07/31/22 01:30 68 18 142/100 07/31/22 01:20 68 18 146/103 07/31/22 01:10 69 18 146/102 07/31/22 01:00 69 18 148/105 07/31/22 00:50 70 18 146/102 07/31/22 00:43 99.1 F 07/31/22 00:40 70 18 138/95 07/31/22 00:30 69 18 138/95 07/31/22 00:21 69 18 132/91 07/31/22 00:11 70 18 129/90 07/31/22 00:00 99.1 F 69 69 18 148/105 07/30/22 23:51 70 18 133/93 07/30/22 23:47 69 18 133/93 07/30/22 23:41 70 18 139/97 07/30/22 23:30 71 18 139/97 07/30/22 23:21 71 18 144/100 07/30/22 23:11 71 19 145/98 07/30/22 23:00 72 21 145/98 07/30/22 22:51 71 13 152/97 07/30/22 22:41 72 18 154/102 07/30/22 22:36 07/30/22 22:30 72 17 154/102 07/30/22 22:21 71 12 159/108 07/30/22 22:10 72 20 163/105 07/30/22 22:00 72 19 159/106 07/30/22 21:52 73 159/102 07/30/22 21:51 73 22 159/102 07/30/22 21:41 71 11 L 155/101 07/30/22 21:30 74 12 155/101 07/30/22 21:21 73 13 155/100 07/30/22 21:11 72 13 162/98 07/30/22 21:00 72 17 162/98 07/30/22 20:51 72 17 07/30/22 20:49 73 07/30/22 20:40 72 19 156/94 07/30/22 20:30 71 12 156/94 07/30/22 20:21 72 15 155/92 07/30/22 20:11 71 16 158/90 07/30/22 20:06 71 27 H 07/30/22 20:00 97.3 F L 71 72 20 149/93 07/30/22 19:51 69 11 L 157/90 07/30/22 19:40 69 11 L 158/90 07/30/22 19:30 69 12 158/90 07/30/22 19:25 95.9 F L 07/30/22 19:21 68 18 162/92 07/30/22 19:11 68 10 L 158/91 07/30/22 19:00 67 12 158/91 07/30/22 18:51 67 13 157/89 07/30/22 18:45 96.1 F L 66 19 157/89 07/30/22 18:41 66 10 L 148/95 07/30/22 18:30 65 20 148/95 07/30/22 18:23 160 H 148/95 07/30/22 18:21 65 20 166/93 07/30/22 18:15 64 166/93 07/30/22 18:11 64 13 169/93 07/30/22 18:00 64 11 L 165/94 07/30/22 17:51 64 15 169/93 07/30/22 17:45 63 169/93 07/30/22 17:41 63 12 169/94 07/30/22 17:30 62 14 169/94 07/30/22 17:21 61 17 169/93 07/30/22 17:15 61 169/93 07/30/22 17:11 61 14 170/95 07/30/22 17:00 61 18 170/95 07/30/22 16:51 60 58 L 16 164/95 07/30/22 16:49 58 L 07/30/22 16:45 60 164/95 07/30/22 16:41 60 13 167/94 07/30/22 16:30 59 L 14 167/94 07/30/22 16:21 59 L 16 158/92 07/30/22 16:15 59 L 158/92 07/30/22 16:11 59 L 15 157/88 07/30/22 16:00 58 L 17 157/88 07/30/22 15:51 58 L 17 142/87 07/30/22 15:45 57 L 147/91 07/30/22 15:41 57 L 19 07/30/22 15:30 56 L 18 137/81 07/30/22 15:23 55 L 137/81 07/30/22 15:20 55 L 17 134/82 07/30/22 15:15 92.7 F L 54 L 19 134/82 07/30/22 15:10 54 L 20 139/78 07/30/22 15:00 55 L 11 L 133/88 07/30/22 14:55 56 L 133/88 07/30/22 14:50 60 10 L 07/30/22 14:48 60 11 L 07/30/22 14:31 57 L 8 L 131/75 07/30/22 14:21 58 L 10 L 136/75 07/30/22 14:11 59 L 10 L 136/75 07/30/22 14:01 59 L 9 L 136/74 Pulse Ox Pulse Ox 07/31/22 13:02 07/31/22 12:08 100 07/31/22 11:20 100 07/31/22 11:10 100 07/31/22 11:00 99 07/31/22 10:50 100 07/31/22 10:40 100 07/31/22 10:30 100 07/31/22 10:20 100 07/31/22 10:10 100 07/31/22 10:00 99 07/31/22 09:50 100 07/31/22 09:40 100 07/31/22 09:30 98 07/31/22 09:20 100 07/31/22 09:10 100 07/31/22 09:00 100 07/31/22 08:50 100 07/31/22 08:40 100 07/31/22 08:30 99 07/31/22 08:20 100 07/31/22 08:10 100 07/31/22 08:05 100 07/31/22 08:04 07/31/22 08:00 100 07/31/22 07:50 100 07/31/22 07:40 100 07/31/22 07:30 99 07/31/22 07:20 100 07/31/22 07:10 100 07/31/22 07:00 100 07/31/22 06:50 100 07/31/22 06:40 100 07/31/22 06:30 100 07/31/22 06:20 100 07/31/22 06:10 100 07/31/22 06:00 100 07/31/22 05:50 100 07/31/22 05:40 100 07/31/22 05:30 100 07/31/22 05:20 100 07/31/22 05:10 100 07/31/22 05:00 100 07/31/22 04:50 100 07/31/22 04:40 100 07/31/22 04:33 100 07/31/22 04:30 100 07/31/22 04:20 100 07/31/22 04:10 100 07/31/22 04:00 100 07/31/22 03:50 100 07/31/22 03:40 100 07/31/22 03:34 07/31/22 03:30 100 07/31/22 03:20 100 07/31/22 03:10 100 07/31/22 03:00 100 07/31/22 02:50 100 07/31/22 02:40 100 07/31/22 02:34 07/31/22 02:30 100 07/31/22 02:20 100 07/31/22 02:10 100 07/31/22 02:00 100 07/31/22 01:50 100 07/31/22 01:40 100 07/31/22 01:30 100 07/31/22 01:20 100 07/31/22 01:10 100 07/31/22 01:00 99 07/31/22 00:50 100 07/31/22 00:43 07/31/22 00:40 100 07/31/22 00:30 99 07/31/22 00:21 100 07/31/22 00:11 100 07/31/22 00:00 100 07/30/22 23:51 100 07/30/22 23:47 100 07/30/22 23:41 100 07/30/22 23:30 100 07/30/22 23:21 100 07/30/22 23:11 99 07/30/22 23:00 99 07/30/22 22:51 100 07/30/22 22:41 100 07/30/22 22:36 100 07/30/22 22:30 99 07/30/22 22:21 100 07/30/22 22:10 99 07/30/22 22:00 99 07/30/22 21:52 07/30/22 21:51 100 07/30/22 21:41 100 07/30/22 21:30 99 07/30/22 21:21 100 07/30/22 21:11 100 07/30/22 21:00 98 07/30/22 20:51 100 07/30/22 20:49 07/30/22 20:40 100 07/30/22 20:30 99 07/30/22 20:21 100 07/30/22 20:11 100 07/30/22 20:06 07/30/22 20:00 100 07/30/22 19:51 100 07/30/22 19:40 100 07/30/22 19:30 99 07/30/22 19:25 07/30/22 19:21 100 07/30/22 19:11 07/30/22 19:00 07/30/22 18:51 07/30/22 18:45 07/30/22 18:41 07/30/22 18:30 07/30/22 18:23 07/30/22 18:21 07/30/22 18:15 07/30/22 18:11 07/30/22 18:00 07/30/22 17:51 07/30/22 17:45 07/30/22 17:41 07/30/22 17:30 07/30/22 17:21 07/30/22 17:15 07/30/22 17:11 07/30/22 17:00 07/30/22 16:51 07/30/22 16:49 07/30/22 16:45 07/30/22 16:41 07/30/22 16:30 07/30/22 16:21 07/30/22 16:15 07/30/22 16:11 07/30/22 16:00 07/30/22 15:51 07/30/22 15:45 07/30/22 15:41 07/30/22 15:30 07/30/22 15:23 07/30/22 15:20 07/30/22 15:15 07/30/22 15:10 07/30/22 15:00 07/30/22 14:55 07/30/22 14:50 07/30/22 14:48 07/30/22 14:31 07/30/22 14:21 07/30/22 14:11 07/30/22 14:01 100 - Physical Examination General: Other (Intubated) Neck: Positive: trachea midline Cardiac: Positive: Reg Rate and Rhythm Lungs: Positive: Ventilated Respirations Neuro: Positive: Other (Unable to assess) Abdomen: Positive: Soft Skin: Negative: Rash, Suspicious Lesions, Ulceration Extremities: Present: upper extr. pulses, edema - Labs and Meds CBC 07/31/22 Range/Units 04:20 WBC 9.0 (4.5-11.0) K/mm3 RBC 3.57 L (3.65-5.03) M/mm3 Hgb 10.1 L (11.8-15.2) gm/dl Hct 31.2 L (35.5-45.6) % Plt Count 168 (140-440) K/mm3 Lymph # (Auto) 0.5 L (1.2-5.4) K/mm3 Iron # (Auto) 0.5 (0.0-0.8) K/mm3 Eos # (Auto) 0.0 (0.0-0.4) K/mm3 Baso # (Auto) 0.0 (0.0-0.1) K/mm3 Comprehensive Metabolic Panel 07/31/22 Range/Units 04:20 Sodium 136 L (137-145) mmol/L Potassium 5.3 H (3.6-5.0) mmol/L Chloride 98.4 (98-107) mmol/L Carbon Dioxide 22 (22-30) mmol/L BUN 45 H (9-20) mg/dL Creatinine 4.8 H (0.8-1.3) mg/dL Glucose 166 H (75-100) mg/dL Calcium 8.7 (8.4-10.2) mg/dL - Imaging and Cardiology EKG: report reviewed, image reviewed Echo: report reviewed - Telemetry EKG Rhythm: Sinus Rhythm - EKG Sinus rhythms and dysrhythmias: sinus rhythm, sinus bradycardia Repolarization changes or abnormalities: nonspecific abnormality, ST segment, and/or T wave
[2022-07-31] MEDS ORDERED: NORepinephrine/NS 8 MG-250 ML 8 MG/250 ML INFUS..BTL IV ONE (14:58)
--- NOTE | 2022-07-31 15:06 | Progress Note ---
Assessment and Plan Assessment and plan: This is a 51-year-old male with CAD s/p CABG, ESRD on HD, CHF, CVA, DM admitted s/p cardiac arrest, acute systolic heart failure, acute hypoxic respiratory failure Neuro: Acute metabolic encephalopathy, r/o anoxic brain injury -Reorientation as needed -Maintain sleep-wake cycle -As needed analgesia -CT head pending -Continue celexa Cardiac: S/p cardiac arrest x3 post ROSC, elevated troponins, acute systolic heart failure, h/o CAD s/p CABG, HTN -Cardiology consulted, appreciate recommendations -Blood pressure monitoring per protocol -Echocardiogram shows ejection fraction of 40 to 45% -s/p dopamine and epinephrine -Coreg, Bumex, Lipitor, Aspirin -Hydralazine PRN Respiratory: Acute hypoxic respiratory failure -CCM consulted, appreciate recommendations -Intubated on 07/30 with 7.5 OETT at 24 at the lips -A.m. vent settings: AC TV 400, Rate 18, PEEP 8, FiO2 60% -See RT notes for titration -A.m. ABG and CXR noted -VAP bundle -SPO2 monitoring GI: Moderate protein calorie malnutrition, obesity -24 hours +261 mL -PPI -NTR consulted for tube feedings : ESRD on HD -Nephrology consulted, appreciate recommendations -HD per nephrology -Renally dose medications -Avoid nephrotoxic medications -Trend BMP ID: NAD -Monitor WBC and temperature curve Endo: h/o type II DM -Avoid hypoglycemia -SSI -Accu-Cheks q. 6 -Long-acting insulin, titrate as needed Heme: AOCD -Trend CBC -Transfuse hemoglobin less than 7 -SCDs to BLE while in bed The high probability of a clinically significant, sudden or life threatening deterioration of the [multi] system(s) required my full and direct attention, intervention and personal management. The aggregate critical care time was [] minutes. This time is in addition to time spent performing reported procedures but includes the following: [x] Data Review and interpretation [x] Patient assessment and monitoring of vital signs [x] Documentation [x] Medication orders and management Disposition Plan: icu Total Time Spent with Patient (Minutes): 60 History Interval history: This is a 51-year-old male with ESRD on HD, CHF, CVA, CAD s/p CABG (10 years ago) DM presents emergency department on 07/30 due to shortness of breath and lethargy. In the emergency department patient was found to have a BUN/creatinine of 69/1.3, hyperkalemia 6.2, elevated troponin at 0.117. Emergency department patient suffered a cardiac arrest x3 and prior to the arrest he was in sinus bradycardic. ROSC was achieved in the ED. Patient was admitted to the hospitalist service with consults to cardiology, nephrology and [facility] s/p cardiac arrest with acute hypoxic respiratory failure. Hospital course to date: 07/31: No cough/gag, no pupillary response. CT head ordered. Nephrology plans to HD today. No acute events reported overnight. Updated niece at bedside Hospitalist Physical - Constitutional Vitals: Temp Pulse Resp BP Pulse Ox 96 F L 59 L 18 128/87 100 07/31/22 08:00 07/31/22 14:08 07/31/22 14:08 07/31/22 13:02 07/31/22 12:08 General appearance: Present: other (Intubated) - EENT Eyes: Absent: PERRL, EOM intact ENT: dentition normal - Respiratory Respiratory effort: normal Respiratory: bilateral: CTA - Cardiovascular Rhythm: regular Heart Sounds: Present: S1 & S2. Absent: systolic murmur, diastolic murmur - Extremities Extremities: no ischemia, pulses intact, pulses symmetrical, No edema, normal temperature, normal color Peripheral Pulses: within normal limits - Abdominal General gastrointestinal: soft, non-tender, non-distended, normal bowel sounds - Integumentary Integumentary: Present: warm, dry - Psychiatric Psychiatric: other - Neurologic Neurologic: other (pupils fixed, no cough/gag, no response to painful stimuli) - Allied Health Allied health notes reviewed: nursing, RT, social work HEART Score - HEART Score Troponin: Troponin T 0.117 ng/mL (0.00-0.029) H* 07/30/22 06:34 Results - Labs CBC & Chem 7: 07/31/22 04:20 07/31/22 04:20 Labs: Laboratory Last Values WBC 9.0 K/mm3 (4.5-11.0) 07/31/22 04:20 RBC 3.57 M/mm3 (3.65-5.03) L 07/31/22 04:20 Hgb 10.1 gm/dl (11.8-15.2) L 07/31/22 04:20 Hct 31.2 % (35.5-45.6) L 07/31/22 04:20 MCV 88 fl (84-94) 07/31/22 04:20 MCH 28 pg (28-32) 07/31/22 04:20 MCHC 33 % (32-34) 07/31/22 04:20 RDW 17.3 % (13.2-15.2) H 07/31/22 04:20 Plt Count 168 K/mm3 (140-440) 07/31/22 04:20 Lymph % (Auto) 6.0 % (13.4-35.0) L 07/31/22 04:20 [place] % (Auto) 5.1 % (0.0-7.3) 07/31/22 04:20 Eos % (Auto) 0.1 % (0.0-4.3) 07/31/22 04:20 Baso % (Auto) 0.2 % (0.0-1.8) 07/31/22 04:20 Lymph # (Auto) 0.5 K/mm3 (1.2-5.4) L 07/31/22 04:20 [place] # (Auto) 0.5 K/mm3 (0.0-0.8) 07/31/22 04:20 Eos # (Auto) 0.0 K/mm3 (0.0-0.4) 07/31/22 04:20 Baso # (Auto) 0.0 K/mm3 (0.0-0.1) 07/31/22 04:20 Seg Neutrophils % 88.6 % (40.0-70.0) H 07/31/22 04:20 Seg Neutrophils # 8.0 K/mm3 (1.8-7.7) H 07/31/22 04:20 ABG pH 7.424 pH Units (7.350-7.450) 07/31/22 04:45 ABG pCO2 40.5 mm Hg 07/31/22 04:45 ABG pO2 251.7 mm Hg (80.0-90.0) H 07/31/22 04:45 ABG HCO3 25.9 mmol/L (20.0-26.0) 07/31/22 04:45 ABG O2 Saturation 99.4 % (95.0-99.0) H 07/31/22 04:45 ABG O2 Content 14.0 (0.0-44) 07/31/22 04:45 ABG Base Excess 1.4 mmol/L (-2.0-3.0) 07/31/22 04:45 ABG Hemoglobin 9.7 gm/dl (14.0-18.0) L 07/31/22 04:45 ABG Carboxyhemoglobin 1.1 % (0.0-5.0) 07/31/22 04:45 ABG Methemoglobin 0.6 % (0.0-1.5) 07/31/22 04:45 Oxyhemoglobin 97.7 % (95.0-99.0) 07/31/22 04:45 FiO2 70 % 07/31/22 04:45 Sodium 136 mmol/L (137-145) L 07/31/22 04:20 Potassium 5.3 mmol/L (3.6-5.0) H 07/31/22 04:20 Chloride 98.4 mmol/L (98-107) 07/31/22 04:20 Carbon Dioxide 22 mmol/L (22-30) 07/31/22 04:20 Anion Gap 21 mmol/L 07/31/22 04:20 BUN 45 mg/dL (9-20) H 07/31/22 04:20 Creatinine 4.8 mg/dL (0.8-1.3) H 07/31/22 04:20 Estimated GFR 16 ml/min 07/31/22 04:20 BUN/Creatinine Ratio 9 % 07/31/22 04:20 Glucose 166 mg/dL (75-100) H 07/31/22 04:20 POC Glucose 199 mg/dL (70-105) H 07/31/22 12:55 Calcium 8.7 mg/dL (8.4-10.2) 07/31/22 04:20 Total Bilirubin 0.50 mg/dL (0.1-1.2) 07/30/22 06:34 AST 23 units/L (5-40) 07/30/22 06:34 ALT 18 units/L (7-56) 07/30/22 06:34 Alkaline Phosphatase 120 units/L (35-129) 07/30/22 06:34 Troponin T 0.117 ng/mL (0.00-0.029) H* 07/30/22 06:34 Total Protein 7.4 g/dL (6.3-8.2) 07/30/22 06:34 Albumin 3.6 g/dL (3.9-5) L 07/30/22 06:34 Albumin/Globulin Ratio 0.9 % 07/30/22 06:34 Triglycerides 49 mg/dL (2-149) 07/30/22 06:34 Cholesterol 86 mg/dL (50-199) 07/30/22 06:34 LDL Cholesterol Direct 24 mg/dL (50-130) L 07/30/22 06:34 HDL Cholesterol 57 mg/dL (40-59) 07/30/22 06:34 Cholesterol/HDL Ratio 1.50 % 07/30/22 06:34 Lipase 42 units/L (13-60) 07/30/22 06:34 Urine Opiates Screen Negative 07/30/22 07:03 Urine Methadone Screen Negative 07/30/22 07:03 Ur Barbiturates Screen Negative 07/30/22 07:03 Ur Phencyclidine Scrn Negative 07/30/22 07:03 Ur Amphetamines Screen Negative 07/30/22 07:03 U Benzodiazepines Scrn Negative 07/30/22 07:03 Urine Cocaine Screen Negative 07/30/22 07:03 U Marijuana (THC) Screen Negative 07/30/22 07:03 Drugs of Abuse Note Disclamer 07/30/22 07:03 Hepatitis A IgM Ab Non-reactive (NonReactive) 07/30/22 09:02 Hep Bs Antigen Non-reactive (Negative) 07/30/22 09:02 Hep B Core IgM Ab Non-reactive (NonReactive) 07/30/22 09:02 Hepatitis C Antibody Non-reactive (NonReactive) 07/30/22 09:02 He/IV: Voiding Method Indwelling Catheter Active Medications - Current Medications Current Medications: Generic Name Dose Route Start Last Admin Trade Name Freq PRN Reason Stop Dose Admin Acetaminophen 650 mg 07/30/22 09:30 Acetaminophen 325 Mg Tab PO Q4H PRN Pain MILD(1-3)/Fever >100.5/CLARK Albuterol 2.5 mg 07/30/22 09:19 Albuterol 2.5 Mg/3 Ml Nebu IH Q3HRT PRN Shortness Of Breath Albuterol/Ipratropium 1 ampul 07/30/22 14:00 07/31/22 14:08 Ipratropium/Albuterol Sulfate 3 Ml Ampul.Neb IH 1 ampul Q6HRT KRISTINA Administration Aspirin 325 mg 07/30/22 10:00 07/31/22 09:40 Aspirin 325 Mg Tab PO 325 mg QDAY KRISTINA Administration Atorvastatin Calcium 40 mg 07/30/22 22:00 07/30/22 21:52 Atorvastatin 40 Mg Tab PO 40 mg QHS KRISTINA Administration Bumetanide 1 mg 07/30/22 10:00 07/31/22 09:41 Bumetanide 1 Mg Tab PO 1 mg BID KRISTINA Administration Carvedilol 25 mg 07/30/22 11:00 07/31/22 09:40 Carvedilol 25 Mg Tab PO 25 mg BID KRISTINA Administration Citalopram Hydrobromide 40 mg 07/30/22 10:00 07/31/22 09:41 Citalopram 20 Mg Tab PO 40 mg DAILY KRISTINA Administration Dextrose 50 ml 07/30/22 09:19 Dextrose 50% In Water (25gm) 50 Ml Syringe IV Q30MIN PRN Hypoglycemia Protocol Epoetin Jb-epbx 10,000 unit 07/30/22 09:00 07/30/22 18:23 Epoetin Jb-Epbx 10,000 Unit/1 Ml Vial IV 10,000 unit EVELINA PRN Administration hemodialysis Famotidine 20 mg 07/31/22 10:00 07/31/22 13:05 Famotidine 20 Mg/2 Ml Inj IV 20 mg DAILY KRISTINA Administration Heparin Sodium (Porcine) 3,000 unit 07/30/22 09:00 07/30/22 15:23 Heparin 10,000 Units/10 Ml Vial IV 3,000 unit EVELINA PRN Administration hemodialysis Hydralazine HCl 50 mg 07/30/22 14:00 07/31/22 13:02 Hydralazine 25 Mg Tab PO 50 mg Q8HR KRISTINA Administration Fentanyl Citrate 1,000 mcg in 100 mls @ 2.5 mls/hr 07/30/22 08:00 Fentanyl Drip Premix IV TITR KRISTINA Protocol 25 MCG/HR Sodium Chloride 100 mls @ 999 mls/hr 07/30/22 09:00 Nacl 0.9% IV EVELINA PRN Hypotension Insulin Glargine 20 units 07/30/22 10:30 07/31/22 11:15 Insulin Glargine 100 Units/Ml SUB-Q Not Given QAM [facility] Insulin Human Lispro 0 unit 07/30/22 12:00 07/31/22 13:01 Insulin Lispro 100 Unit/Ml SUB-Q 2 unit Q6HR KRISTINA Administration Protocol Ondansetron HCl 4 mg 07/30/22 10:00 Ondansetron 4 Mg/2 Ml Inj IV Q8H PRN Nausea And Vomiting Sodium Chloride 10 ml 07/30/22 10:00 07/31/22 09:42 Sodium Chloride 0.9% 10 Ml Flush Syringe IV 10 ml BID KRISTINA Administration Sodium Chloride 10 ml 07/30/22 10:00 Sodium Chloride 0.9% 10 Ml Flush Syringe IV PRN PRN LINE FLUSH Nutrition/Malnutrition Assess - Dietary Evaluation Nutrition/Malnutrition Findings: Nutrition Notes Start: 07/30/22 13:12 Freq: Status: Active Protocol: Document 07/30/22 13:12 LIZETH (Rec: 07/30/22 13:27 LIZETH [id number]) Nutrition Notes Need for Assessment generated from: MD Order,Education Initial or Follow up Brief Note Current Diagnosis CKD (stage V CKD),Diabetes, Hypertension,Respiratory Failure,Stroke Other Pertinent Diagnosis ESRD+HD, CHF, s/p Cardiopulmonary Arrest x2, Metabolic Encephalopathy, ... Current Diet NPO (since 07/30 09:20). Height 5 ft 6 in Weight 79.379 kg [place] Body Weight (kg) 64.54 BMI 28.2 Weight change and time frame None provided at admission. Weight Status Overweight Subjective/Other Information RD consult for nutrition education assessment. Pt is on NPO. Pt is on Mechanical Ventilation, O2 saturation @ 100%, according to V[facility] Signs notes. Pt still in critical condition , not a candidate for Nutrition Education at the time, will assess feasibility on F/U. Percent of energy/protein needs met: Pt is on NPO. Nutrition Intervention Follow-Up By: 08/01/22 Additional Comments Nutrition education will be provided at F/U, if feasible. When pertinent, advance to PO diet and start monitoring food tolerance, %PO intake of meals, and BM.
--- NOTE | 2022-07-31 15:51 | Cat Scan Report ---
CT head/brain wo con INDICATION: s/p cardiac arrest. TECHNIQUE: CT head. All CT scans at this location are performed using CT dose reduction for ALARA by means of automated exposure control. COMPARISON: 05/30/2022 FINDINGS: There is diffuse cerebral edema with complete effacement of the sulci and relatively increased densit y of the falx and tentorium. The ventricles are smaller in caliber compared to prior examination rela sivakumar to mass effect. The basal cisterns are effaced and there is crowding of the foramen magnum. No he morrhage. Remote right frontoparietal lobe infarction. IMPRESSION: 1. Findings consistent with diffuse hypoxic ischemic injury. There is developing herniation with bas ilar cistern effacement and crowding the foramen magnum. Informed the nurse at 2:46. Signer Name: Son Alvarado MD Signed: 07/31/2022 3:47 PM Workstation Name: [id number]
[2022-07-31] MEDS: HEPARIN 10,000 UNITS/10 ML VIAL IV PRN (18:40)
[2022-08-01] MEDS: IPRATROPIUM/ALBUTEROL SULFATE 3 ML AMPUL.NEB IH SCH ×3 (01:41→17:57)
[2022-08-01] MEDS: INSULIN LISPRO 100 UNIT/ML SUB-Q SCH ×3 (01:45→11:57)
[2022-08-01 04:01] LABS: ABG Base Excess 3.7 mmol/L (-2.0-3.0); ABG HCO3 27.3 mmol/L (20.0-26.0); ABG Methemoglobin 0.5 % (0.0-1.5); ABG Oxygen Saturation 97.7 % (95.0-99.0); ABG PCO2 37.2 mm Hg; ABG PH 7.483 pH Units (7.350-7.450); ABG PO2 98.2 mm Hg (80.0-90.0)
[2022-08-01] MEDS: hydrALAZINE 25 MG TAB PO SCH (06:46)
[2022-08-01] MEDS ORDERED: MIDODRINE 10 MG TAB PO SCH (08:47)
--- NOTE | 2022-08-01 09:25 | Progress Note ---
Assessment and Plan 51 y/o male with cardiac arrest x3, acute respiratory failure now with encephalopathy, concern for anoxic brain injury. 08/01/22: Very poor prognosis. Spoke with imS yesterday and plans to set up family meeting. Likelihood of recovery is slim to none. With clinical exam very doubtful of recovery. Continue supportive measures. Poor poor prognosis. 1. Will get Head CT today. 2. Continue to wean FiO2 for sats >88%. Continue PEEP at 8 3. HD per renal. They plan to dialyze today. 4. Guarded to poor prognosis. CCT 31 Subjective Date of service: 08/01/22 Principal diagnosis: s/p cardiac arrest, ESRD on HD, AMS Interval history: CT head shows diffuse cerebral edema with impending herniation consistent with diffuse severe anoxic brain injury. Objective Vital Signs - 12hr 07/31/22 07/31/22 07/31/22 21:30 21:40 21:43 Temperature 96.8 F L Pulse Rate 60 61 61 Pulse Rate [ Anterior Bilateral] Pulse Rate [ Bilateral] Pulse Rate [ From Monitor] Respiratory 19 Rate Respiratory Rate [Anterior Bilateral] Respiratory Rate [Bilateral ] Blood Pressure 110/73 116/76 113/75 O2 Sat by Pulse Oximetry O2 Sat by Pulse 100 Oximetry [ Anterior Bilateral] O2 Sat by Pulse 100 Oximetry [ Bilateral] 07/31/22 07/31/22 07/31/22 22:00 22:37 23:00 Temperature Pulse Rate 62 62 63 Pulse Rate [ Anterior Bilateral] Pulse Rate [ Bilateral] Pulse Rate [ From Monitor] Respiratory 13 16 Rate Respiratory Rate [Anterior Bilateral] Respiratory Rate [Bilateral ] Blood Pressure 106/70 106/71 106/71 O2 Sat by Pulse 99 100 Oximetry O2 Sat by Pulse Oximetry [ Anterior Bilateral] O2 Sat by Pulse Oximetry [ Bilateral] 07/31/22 07/31/22 07/31/22 23:07 23:20 23:30 Temperature Pulse Rate 63 63 63 Pulse Rate [ Anterior Bilateral] Pulse Rate [ Bilateral] Pulse Rate [ From Monitor] Respiratory 17 Rate Respiratory Rate [Anterior Bilateral] Respiratory Rate [Bilateral ] Blood Pressure 106/71 106/71 106/71 O2 Sat by Pulse 100 100 Oximetry O2 Sat by Pulse Oximetry [ Anterior Bilateral] O2 Sat by Pulse Oximetry [ Bilateral] 08/01/22 08/01/22 08/01/22 00:00 01:00 01:42 Temperature 96.6 F L Pulse Rate 63 62 Pulse Rate [ Anterior Bilateral] Pulse Rate [ 64 Bilateral] Pulse Rate [ From Monitor] Respiratory 13 15 Rate Respiratory Rate [Anterior Bilateral] Respiratory 22 Rate [Bilateral ] Blood Pressure 107/72 105/72 O2 Sat by Pulse 98 100 Oximetry O2 Sat by Pulse Oximetry [ Anterior Bilateral] O2 Sat by Pulse Oximetry [ Bilateral] 08/01/22 08/01/22 08/01/22 02:00 03:00 04:00 Temperature 95.1 F L Pulse Rate 63 62 61 Pulse Rate [ Anterior Bilateral] Pulse Rate [ Bilateral] Pulse Rate [ From Monitor] Respiratory 13 20 18 Rate Respiratory Rate [Anterior Bilateral] Respiratory Rate [Bilateral ] Blood Pressure 108/74 99/67 102/70 O2 Sat by Pulse 100 100 100 Oximetry O2 Sat by Pulse Oximetry [ Anterior Bilateral] O2 Sat by Pulse Oximetry [ Bilateral] 08/01/22 08/01/22 08/01/22 05:00 06:00 06:46 Temperature Pulse Rate 61 61 Pulse Rate [ Anterior Bilateral] Pulse Rate [ Bilateral] Pulse Rate [ From Monitor] Respiratory 19 15 Rate Respiratory Rate [Anterior Bilateral] Respiratory Rate [Bilateral ] Blood Pressure 84/54 82/54 82/54 O2 Sat by Pulse 92 94 Oximetry O2 Sat by Pulse Oximetry [ Anterior Bilateral] O2 Sat by Pulse Oximetry [ Bilateral] 08/01/22 08/01/22 08/01/22 07:00 07:28 07:35 Temperature Pulse Rate 62 62 Pulse Rate [ 62 Anterior Bilateral] Pulse Rate [ 64 Bilateral] Pulse Rate [ From Monitor] Respiratory 14 Rate Respiratory 18 Rate [Anterior Bilateral] Respiratory 18 Rate [Bilateral ] Blood Pressure 80/49 80/49 O2 Sat by Pulse 96 97 Oximetry O2 Sat by Pulse Oximetry [ Anterior Bilateral] O2 Sat by Pulse Oximetry [ Bilateral] 08/01/22 08/01/22 07:42 08:00 Temperature 96.3 F L Pulse Rate 64 Pulse Rate [ Anterior Bilateral] Pulse Rate [ Bilateral] Pulse Rate [ 63 From Monitor] Respiratory 11 L Rate Respiratory Rate [Anterior Bilateral] Respiratory Rate [Bilateral ] Blood Pressure 80/51 O2 Sat by Pulse 98 Oximetry O2 Sat by Pulse Oximetry [ Anterior Bilateral] O2 Sat by Pulse Oximetry [ Bilateral] Constitutional: comatose Eyes: non-icteric ENT: other (orally intubated) Neck: supple Effort: normal Ascultation: Bilateral: clear, rales CBC and BMP: 07/31/22 04:20 08/01/22 04:34 ABG, PT/INR, D-dimer: ABG ABG pH 7.483 pH Units (7.350-7.450) H 08/01/22 03:30 ABG pCO2 37.2 mm Hg 08/01/22 03:30 ABG pO2 98.2 mm Hg (80.0-90.0) H 08/01/22 03:30 ABG O2 Saturation 97.7 % (95.0-99.0) 08/01/22 03:30 Abnormal lab findings: Abnormal Labs 07/30/22 07/30/22 07/30/22 06:34 06:34 06:34 RBC 3.11 L Hgb 8.9 L Hct 27.1 L RDW 17.3 H Lymph % (Auto) Lymph # (Auto) Seg Neutrophils % 71.5 H Seg Neutrophils # ABG pH ABG pO2 ABG HCO3 ABG O2 Saturation ABG Base Excess ABG Hemoglobin Sodium 135 L Potassium 6.2 H* Chloride 97.0 L Carbon Dioxide 21 L BUN 69 H Creatinine 7.3 H Glucose 335 H POC Glucose Calcium Troponin T 0.117 H* Albumin 3.6 L LDL Cholesterol Direct 24 L 07/30/22 07/30/22 07/31/22 06:56 18:07 00:33 RBC Hgb Hct RDW Lymph % (Auto) Lymph # (Auto) Seg Neutrophils % Seg Neutrophils # ABG pH ABG pO2 95.7 H ABG HCO3 ABG O2 Saturation ABG Base Excess -3.0 L ABG Hemoglobin 8.5 L Sodium Potassium Chloride Carbon Dioxide BUN Creatinine Glucose POC Glucose 186 H 174 H Calcium Troponin T Albumin LDL Cholesterol Direct 07/31/22 07/31/22 07/31/22 04:20 04:20 04:45 RBC 3.57 L Hgb 10.1 L Hct 31.2 L RDW 17.3 H Lymph % (Auto) 6.0 L Lymph # (Auto) 0.5 L Seg Neutrophils % 88.6 H Seg Neutrophils # 8.0 H ABG pH ABG pO2 251.7 H ABG HCO3 ABG O2 Saturation 99.4 H ABG Base Excess ABG Hemoglobin 9.7 L Sodium 136 L Potassium 5.3 H Chloride Carbon Dioxide BUN 45 H Creatinine 4.8 H Glucose 166 H POC Glucose Calcium Troponin T Albumin LDL Cholesterol Direct 07/31/22 07/31/22 08/01/22 05:07 12:55 01:21 RBC Hgb Hct RDW Lymph % (Auto) Lymph # (Auto) Seg Neutrophils % Seg Neutrophils # ABG pH ABG pO2 ABG HCO3 ABG O2 Saturation ABG Base Excess ABG Hemoglobin Sodium Potassium Chloride Carbon Dioxide BUN Creatinine Glucose POC Glucose 177 H 199 H 124 H Calcium Troponin T Albumin LDL Cholesterol Direct 08/01/22 08/01/22 03:30 04:34 RBC Hgb Hct RDW Lymph % (Auto) Lymph # (Auto) Seg Neutrophils % Seg Neutrophils # ABG pH 7.483 H ABG pO2 98.2 H ABG HCO3 27.3 H ABG O2 Saturation ABG Base Excess 3.7 H ABG Hemoglobin 9.5 L Sodium Potassium 3.5 L D Chloride Carbon Dioxide BUN 27 H Creatinine 3.9 H Glucose 113 H POC Glucose Calcium 8.0 L Troponin T Albumin LDL Cholesterol Direct
[2022-08-01] MEDS: FAMOTIDINE 20 MG/2 ML INJ IV SCH (09:45)
[2022-08-01] MEDS: BUMETANIDE 1 MG TAB PO SCH (09:45)
[2022-08-01] MEDS: ASPIRIN 325 MG TAB PO SCH (09:45)
[2022-08-01] MEDS: CITALOPRAM 20 MG TAB PO SCH (09:45)
[2022-08-01] MEDS: INSULIN GLARGINE 100 UNITS/ML SUB-Q SCH (09:55)
[2022-08-01] MEDS: carvediloL 25 MG TAB PO SCH (09:56)
[2022-08-01] MEDS: MIDODRINE 10 MG TAB FEEDTUBE SCH ×2 (10:09→11:57)
--- NOTE | 2022-08-01 10:16 | Progress Note ---
Assessment and Plan 1. ESRD: Patient is on maintenance hemodialysis, MWF schedule. Hemodialysis: 07/30, 07/31. 2. FEN: Hyperkalemia, improved with HD. Anion-gap metabolic acidosis, improved with HD, monitor. UF with HD as tolerated. Monitor lytes and volume status. 3. S/p multiple Cardiac arrest: Elevated troponin. H/o CAD s/p CABG. Bradyarrhythmia. Followed by Cards. 4. Shock: Pressors as needed. Monitor BP. 5. HFrEF. 6. Acute hypoxic respiratory failure, POA: Intubated on 07/30/22. on MV. 7. Anoxic encephalopathy: S/p Cardiac arrest. Monitor. 8. DM-2: Monitor. 9. Normocytic Anemia, POA: 2/2 ESRD. Epogen with HD as needed. Outpatient HD chair at [facility]. Subjective: Patient was seen and examined at the bedside. Examination: General appearance: well-developed, appears stated age, no distress, intubated, on vent HEENT: atraumatic, no icterus, pupils dilated and fixed Neck: trachea midline Respiratory: ctab Heart: S1S2, regular, no murmur Abdomen: soft, bowel sounds heard, NT Integumentary: no obvious rash Neurologic: not responding Ext: slight LE edema Hemodialysis access: R IJ tunnel catheter Subjective Date of service: 08/01/22 Principal diagnosis: s/p cardiac arrest, ESRD on HD, AMS Objective - Vital Signs Vital signs: Vital Signs - 12hr 07/31/22 07/31/22 07/31/22 22:37 23:00 23:07 Temperature Pulse Rate 62 63 63 Pulse Rate [ Anterior Bilateral] Pulse Rate [ Bilateral] Pulse Rate [ From Monitor] Respiratory 16 Rate Respiratory Rate [Anterior Bilateral] Respiratory Rate [Bilateral ] Blood Pressure 106/71 106/71 106/71 O2 Sat by Pulse 100 Oximetry 07/31/22 07/31/22 08/01/22 23:20 23:30 00:00 Temperature 96.6 F L Pulse Rate 63 63 63 Pulse Rate [ Anterior Bilateral] Pulse Rate [ Bilateral] Pulse Rate [ From Monitor] Respiratory 17 13 Rate Respiratory Rate [Anterior Bilateral] Respiratory Rate [Bilateral ] Blood Pressure 106/71 106/71 107/72 O2 Sat by Pulse 100 100 98 Oximetry 08/01/22 08/01/22 08/01/22 01:00 01:42 02:00 Temperature Pulse Rate 62 63 Pulse Rate [ Anterior Bilateral] Pulse Rate [ 64 Bilateral] Pulse Rate [ From Monitor] Respiratory 15 13 Rate Respiratory Rate [Anterior Bilateral] Respiratory 22 Rate [Bilateral ] Blood Pressure 105/72 108/74 O2 Sat by Pulse 100 100 Oximetry 08/01/22 08/01/22 08/01/22 03:00 04:00 05:00 Temperature 95.1 F L Pulse Rate 62 61 61 Pulse Rate [ Anterior Bilateral] Pulse Rate [ Bilateral] Pulse Rate [ From Monitor] Respiratory 20 18 19 Rate Respiratory Rate [Anterior Bilateral] Respiratory Rate [Bilateral ] Blood Pressure 99/67 102/70 84/54 O2 Sat by Pulse 100 100 92 Oximetry 08/01/22 08/01/22 08/01/22 06:00 06:46 07:00 Temperature Pulse Rate 61 62 Pulse Rate [ Anterior Bilateral] Pulse Rate [ Bilateral] Pulse Rate [ From Monitor] Respiratory 15 14 Rate Respiratory Rate [Anterior Bilateral] Respiratory Rate [Bilateral ] Blood Pressure 82/54 82/54 80/49 O2 Sat by Pulse 94 96 Oximetry 08/01/22 08/01/22 08/01/22 07:28 07:35 07:42 Temperature 96.3 F L Pulse Rate 62 Pulse Rate [ 62 Anterior Bilateral] Pulse Rate [ 64 Bilateral] Pulse Rate [ From Monitor] Respiratory Rate Respiratory 18 Rate [Anterior Bilateral] Respiratory 18 Rate [Bilateral ] Blood Pressure 80/49 O2 Sat by Pulse 97 Oximetry 08/01/22 08/01/22 08:00 09:00 Temperature Pulse Rate 64 64 Pulse Rate [ Anterior Bilateral] Pulse Rate [ Bilateral] Pulse Rate [ 63 From Monitor] Respiratory 11 L 12 Rate Respiratory Rate [Anterior Bilateral] Respiratory Rate [Bilateral ] Blood Pressure 80/51 87/59 O2 Sat by Pulse 98 98 Oximetry - Lab 07/31/22 04:20 08/01/22 04:34 Most recent lab results ABG pH 7.483 pH Units (7.350-7.450) H 08/01/22 03:30 ABG pCO2 37.2 mm Hg 08/01/22 03:30 ABG pO2 98.2 mm Hg (80.0-90.0) H 08/01/22 03:30 ABG HCO3 27.3 mmol/L (20.0-26.0) H 08/01/22 03:30 ABG O2 Saturation 97.7 % (95.0-99.0) 08/01/22 03:30 Calcium 8.0 mg/dL (8.4-10.2) L 08/01/22 04:34 Medications & Allergies - Medications Allergies/Adverse Reactions: Allergies No Known Allergies Allergy (Verified 05/30/22 15:01) Home Medications: Home Medications Medication Instructions Recorded Confirmed Last Taken Type AtorvaSTATin [Lipitor] 40 mg PO QHS 05/11/22 05/30/22 05/16/22 History Bumetanide [Bumex 1 mg tab] 1 mg PO BID 05/11/22 05/30/22 05/16/22 History Insulin Glargine,Hum.rec.anlog 20 unit SQ QAM 30 Days #1 box 05/12/22 05/30/22 05/16/22 Rx [Lantus Solostar] Insulin Regular, Human [Novolin R 5 unit SQ AC 30 Days #1 box 05/12/22 05/30/22 05/16/22 Rx Flexpen] NIFEdipine XL [Procardia Xl] 90 mg PO QDAY 30 Days #30 tablet 05/12/22 05/30/22 05/16/22 Rx carvediloL [Coreg] 25 mg PO BID 30 Days #60 tab 05/12/22 05/30/22 05/16/22 Rx Sevelamer Carbonate [Renvela] 1,600 mg PO TIDWM 05/30/22 05/30/22 05/16/22 History Citalopram [Celexa] 40 mg PO DAILY tablet 06/01/22 Unknown Rx ISOSORBIDE MONOnitrate [Imdur ER] 120 mg PO QDAY tablet 06/01/22 Unknown Rx Spironolactone [Aldactone] 100 mg PO QDAY tablet 06/01/22 Unknown Rx hydrALAZINE [Apresoline TAB] 50 mg PO Q8HR tablet 06/01/22 Unknown Rx Active Medications: Generic Name Dose Route Start Last Admin Trade Name Freq PRN Reason Stop Dose Admin Acetaminophen 650 mg 07/30/22 09:30 Acetaminophen 325 Mg Tab PO Q4H PRN Pain MILD(1-3)/Fever >100.5/CLARK Albuterol 2.5 mg 07/30/22 09:19 Albuterol 2.5 Mg/3 Ml Nebu IH Q3HRT PRN Shortness Of Breath Albuterol/Ipratropium 1 ampul 07/30/22 14:00 08/01/22 07:34 Ipratropium/Albuterol Sulfate 3 Ml Ampul.Neb IH 1 ampul Q6HRT KRISTINA Administration Aspirin 325 mg 07/30/22 10:00 08/01/22 09:45 Aspirin 325 Mg Tab PO 325 mg QDAY KRISTINA Administration Atorvastatin Calcium 40 mg 07/30/22 22:00 07/31/22 23:06 Atorvastatin 40 Mg Tab PO 40 mg QHS KRISTINA Administration Bumetanide 1 mg 07/30/22 10:00 08/01/22 09:45 Bumetanide 1 Mg Tab PO 1 mg BID KRISTINA Administration Citalopram Hydrobromide 40 mg 07/30/22 10:00 08/01/22 09:45 Citalopram 20 Mg Tab PO 40 mg DAILY KRISTINA Administration Dextrose 50 ml 07/30/22 09:19 Dextrose 50% In Water (25gm) 50 Ml Syringe IV Q30MIN PRN Hypoglycemia Protocol Epoetin Jb-epbx 10,000 unit 07/30/22 09:00 07/30/22 18:23 Epoetin Jb-Epbx 10,000 Unit/1 Ml Vial IV 10,000 unit EVELINA PRN Administration hemodialysis Famotidine 20 mg 07/31/22 10:00 08/01/22 09:45 Famotidine 20 Mg/2 Ml Inj IV 20 mg DAILY KRISTINA Administration Heparin Sodium (Porcine) 3,000 unit 07/30/22 09:00 07/31/22 18:40 Heparin 10,000 Units/10 Ml Vial IV 3,000 unit EVELINA PRN Administration hemodialysis Fentanyl Citrate 1,000 mcg in 100 mls @ 2.5 mls/hr 07/30/22 08:00 Fentanyl Drip Premix IV TITR KRISTINA Protocol 25 MCG/HR Sodium Chloride 100 mls @ 999 mls/hr 07/30/22 09:00 Nacl 0.9% IV EVELINA PRN Hypotension Insulin Glargine 20 units 07/30/22 10:30 08/01/22 09:55 Insulin Glargine 100 Units/Ml SUB-Q 20 units QAM KRISTINA Administration Insulin Human Lispro 0 unit 07/30/22 12:00 08/01/22 06:47 Insulin Lispro 100 Unit/Ml SUB-Q Not Given Q6HR KRISTINA Protocol Midodrine 10 mg 08/01/22 09:30 08/01/22 10:09 Midodrine 10 Mg Tab FEEDTUBE 10 mg TID@0800,1200,1600 KRISTINA Administration Ondansetron HCl 4 mg 07/30/22 10:00 Ondansetron 4 Mg/2 Ml Inj IV Q8H PRN Nausea And Vomiting Sodium Chloride 10 ml 07/30/22 10:00 08/01/22 09:55 Sodium Chloride 0.9% 10 Ml Flush Syringe IV 10 ml BID KRISTINA Administration Sodium Chloride 10 ml 07/30/22 10:00 Sodium Chloride 0.9% 10 Ml Flush Syringe IV PRN PRN LINE FLUSH
--- NOTE | 2022-08-01 11:45 | Progress Note ---
Assessment and Plan Pt is a 51-year-old male with a hx of ESRD on HD, HTN, and DM2 who presented via EMS for evaluation of lethargy today found to amish [facility]witt and s/p cardiac arrestx2 s/p Cardiac arrest Acute Encephalopathy Bradyarrhythmia Hyperkalemia ESRD on HD-nephrology following Anemia Elevated Tn HTN DM2 w/Hyperglycemia Echo 05/11/2022-EF 40 to 45%. Moderate concentric LVH. Transmitral Doppler flow pattern suggests restrictive physiology. Moderate tricuspid regurgitation. Moderate pulmonary hypertension. Moderate tricuspid regurgitation. Right atrium moderately dilated. Left atrium mildly dilated. IVC dilated. IVC collapses less than 50% inspiration Echo 07/30/2022-EF 40 to 45%. Moderate concentric LVH. Severe diastolic dysfunction present restrictive filling. Right ventricle is mildly dilated. Right ventricle systolic function is normal. Left atrium moderately dilated. Atrial septum is aneurysmal. Mild to moderate pulmonary regurgitation. Mild tricuspid regurgitation. Plan: Telemetry reviewed patient currently sinus 60s Troponin is noted to be elevated however not significantly different than troponin level on prior admission. Furthermore suspect troponin elevation in setting of end-stage renal disease in need of hemodialysis and patient s/p cardiac arrest Patient is hypotensive we will hold carvedilol and hydralazine Patiently currently on aspirin, atorvastatin 40 mg p.o. nightly, Volume management nephrology Continue to closely monitor Patient has fixed pupils and per conversation with staff absent gag reflex. CT head showed anoxic brain injury Per staff and documentation family meeting to be held today regarding goals of care Guarded prognosis Patient seen in conjunction with Dr. Palafox who agrees with this plan of care 30 minutes of critical care time spent care coordination of patient - Patient Problems (1) Bradycardia Current Visit: Yes Status: Acute (2) Cardiopulmonary arrest Current Visit: Yes Status: Acute (3) Hyperkalemia Current Visit: Yes Status: Acute (4) Advance care planning Current Visit: No Status: Acute (5) Diabetes mellitus Current Visit: No Status: Acute (6) ESRD needing dialysis Current Visit: No Status: Acute (7) Hypotension Current Visit: No Status: Acute Subjective Date of service: 08/01/22 Principal diagnosis: s/p cardiac arrest, ESRD on HD, AMS Interval history: Patient remains intubated . Patient's pupils are fixed and dilated sinus 60s on monitor Objective Vital Signs Temp Pulse Pulse Pulse Pulse Resp Resp 08/01/22 11:00 64 19 09/22/22 10:00 64 19 08/01/22 09:00 64 12 08/01/22 08:00 64 63 11 L 08/01/22 07:42 96.3 F L 08/01/22 07:35 62 64 18 08/01/22 07:28 62 08/01/22 07:00 62 14 08/01/22 06:46 08/01/22 06:00 61 15 08/01/22 05:00 61 19 08/01/22 04:00 95.1 F L 61 18 08/01/22 03:00 62 20 08/01/22 02:00 63 13 08/01/22 01:42 64 08/01/22 01:00 62 15 08/01/22 00:00 96.6 F L 63 13 07/31/22 23:30 63 07/31/22 23:20 63 17 07/31/22 23:07 63 07/31/22 23:00 63 16 07/31/22 22:37 62 07/31/22 22:00 62 13 07/31/22 21:43 96.8 F L 61 19 07/31/22 21:40 61 07/31/22 21:30 60 07/31/22 21:15 60 07/31/22 21:00 60 17 07/31/22 20:45 61 07/31/22 20:30 61 07/31/22 20:15 60 07/31/22 20:00 96.9 F L 59 L 18 07/31/22 19:45 59 L 07/31/22 19:30 57 L 07/31/22 19:29 58 L 07/31/22 19:25 56 L 07/31/22 19:15 56 L 07/31/22 19:00 55 L 9 L 07/31/22 18:45 56 L 07/31/22 18:44 55 L 07/31/22 18:40 55 L 12 07/31/22 18:30 55 L 16 07/31/22 18:20 55 L 17 07/31/22 18:15 94.3 F L 54 L 13 07/31/22 18:10 55 L 14 07/31/22 18:00 54 L 18 07/31/22 17:50 54 L 15 07/31/22 17:40 54 L 14 07/31/22 17:30 54 L 11 L 07/31/22 17:20 53 L 14 07/31/22 17:10 53 L 17 07/31/22 17:00 53 L 15 07/31/22 16:50 53 L 13 07/31/22 16:40 54 L 14 07/31/22 16:30 54 L 11 L 07/31/22 16:20 54 L 13 07/31/22 16:15 54 L 07/31/22 16:10 55 L 12 07/31/22 16:00 96 F L 55 L 16 07/31/22 15:50 56 L 14 07/31/22 15:40 57 L 31 H 07/31/22 15:10 58 L 13 07/31/22 15:00 59 L 15 07/31/22 14:50 60 13 07/31/22 14:40 61 18 07/31/22 14:30 61 18 07/31/22 14:20 61 18 07/31/22 14:10 59 L 18 07/31/22 14:08 59 L 07/31/22 14:00 60 13 07/31/22 13:50 60 13 07/31/22 13:40 59 L 18 07/31/22 13:30 59 L 18 07/31/22 13:20 60 18 07/31/22 13:10 60 18 07/31/22 13:02 60 07/31/22 13:00 60 18 07/31/22 12:50 60 18 07/31/22 12:40 60 19 07/31/22 12:30 61 18 07/31/22 12:20 61 18 07/31/22 12:10 61 18 07/31/22 12:08 61 07/31/22 12:00 95.9 F L 61 18 07/31/22 11:50 61 18 Resp BP Pulse Ox Pulse Ox Pulse Ox 08/01/22 11:00 81/55 91 08/01/22 10:00 85/57 95 08/01/22 09:00 87/59 98 08/01/22 08:00 80/51 98 08/01/22 07:42 08/01/22 07:35 18 08/01/22 07:28 80/49 97 08/01/22 07:00 80/49 96 08/01/22 06:46 82/54 08/01/22 06:00 82/54 94 08/01/22 05:00 84/54 92 08/01/22 04:00 102/70 100 08/01/22 03:00 99/67 100 08/01/22 02:00 108/74 100 08/01/22 01:42 22 08/01/22 01:00 105/72 100 08/01/22 00:00 107/72 98 07/31/22 23:30 106/71 100 07/31/22 23:20 106/71 100 07/31/22 23:07 106/71 07/31/22 23:00 106/71 100 07/31/22 22:37 106/71 07/31/22 22:00 106/70 99 07/31/22 21:43 113/75 100 100 07/31/22 21:40 116/76 07/31/22 21:30 110/73 07/31/22 21:15 109/73 07/31/22 21:00 108/74 100 07/31/22 20:45 112/78 07/31/22 20:30 113/76 07/31/22 20:15 112/76 07/31/22 20:00 110/77 96 07/31/22 19:45 111/78 07/31/22 19:30 108/76 07/31/22 19:29 18 07/31/22 19:25 105/74 100 07/31/22 19:15 105/74 07/31/22 19:00 101/72 100 07/31/22 18:45 110/80 07/31/22 18:44 109/77 07/31/22 18:40 95/69 100 07/31/22 18:30 98/69 95 07/31/22 18:20 103/73 99 07/31/22 18:15 103/73 100 100 07/31/22 18:10 108/75 94 07/31/22 18:00 108/75 99 07/31/22 17:50 100/71 92 07/31/22 17:40 104/74 93 07/31/22 17:30 104/74 92 07/31/22 17:20 104/74 95 07/31/22 17:10 111/78 95 07/31/22 17:00 111/78 91 07/31/22 16:50 111/79 97 07/31/22 16:40 113/81 95 07/31/22 16:30 113/81 96 07/31/22 16:20 117/83 100 07/31/22 16:15 117/83 96 07/31/22 16:10 131/91 07/31/22 16:00 122/86 99 07/31/22 15:50 131/90 07/31/22 15:40 126/87 07/31/22 15:10 131/92 07/31/22 15:00 131/91 07/31/22 14:50 131/92 07/31/22 14:40 131/90 07/31/22 14:30 131/90 07/31/22 14:20 127/86 07/31/22 14:10 127/90 07/31/22 14:08 18 07/31/22 14:00 127/90 07/31/22 13:50 128/87 07/31/22 13:40 130/88 07/31/22 13:30 130/88 07/31/22 13:20 129/88 07/31/22 13:10 128/87 07/31/22 13:02 128/87 07/31/22 13:00 128/87 07/31/22 12:50 07/31/22 12:40 126/85 07/31/22 12:30 126/85 07/31/22 12:20 123/84 07/31/22 12:10 124/85 07/31/22 12:08 124/85 07/31/22 12:00 124/85 07/31/22 11:50 125/84 100 - Physical Examination General: Other (Intubated) Neck: Positive: trachea midline Cardiac: Positive: Reg Rate and Rhythm Lungs: Positive: Ventilated Respirations Neuro: Positive: Other (Unable to assess) Abdomen: Positive: Soft Skin: Negative: Rash, Suspicious Lesions, Ulceration Extremities: Present: upper extr. pulses, edema - Labs and Meds Comprehensive Metabolic Panel 08/01/22 Range/Units 04:34 Sodium 138 (137-145) mmol/L Potassium 3.5 L D (3.6-5.0) mmol/L Chloride 99.2 (98-107) mmol/L Carbon Dioxide 26 (22-30) mmol/L BUN 27 H (9-20) mg/dL Creatinine 3.9 H (0.8-1.3) mg/dL Glucose 113 H (75-100) mg/dL Calcium 8.0 L (8.4-10.2) mg/dL - Imaging and Cardiology EKG: report reviewed, image reviewed Echo: report reviewed - Telemetry EKG Rhythm: Sinus Rhythm - EKG Sinus rhythms and dysrhythmias: sinus rhythm, sinus bradycardia Repolarization changes or abnormalities: nonspecific abnormality, ST segment, and/or T wave
[2022-08-01] MEDS ORDERED: PHENYLEPHRINE 100 MG in SODIUM CHLORIDE 0.9% 250ML 240 ML IV SCH (14:15)
[2022-08-01] MEDS ORDERED: ATROPINE 0.1% (1 MG/10 ML) CARDIAC SYRINGE ONE (14:18)
[2022-08-01 14:19] VITALS: BP 70/43
--- NOTE | 2022-08-01 14:28 | Progress Note ---
Assessment and Plan Assessment and plan: This is a 51-year-old male with CAD s/p CABG, ESRD on HD, CHF, CVA, DM admitted s/p cardiac arrest, acute systolic heart failure, acute hypoxic respiratory failure The high probability of a clinically significant, sudden or life threatening deterioration of the [multi] system(s) required my full and direct attention, intervention and personal management. The aggregate critical care time was [] guero resendez. This time is in addition to time spent performing reported procedures but includes the following: [x] Data Review and interpretation [x] Patient assessment and monitoring of vital signs [x] Documentation [x] Medication orders and management Disposition Plan: icu Total Time Spent with Patient (Minutes): 60 History Interval history: This is a 51-year-old male with ESRD on HD, CHF, CVA, CAD s/p CABG (10 years ago) DM presents emergency department on 07/30 due to shortness of breath and lethargy. In the emergency department patient was found to have a BUN/creatinine of 69/1.3, hyperkalemia 6.2, elevated troponin at 0.117. Emergency department patient suffered a cardiac arrest x3 and prior to the arrest he was in sinus bradycardic. ROSC was achieved in the ED. Patient was admitted to the hospitalist service with consults to cardiology, nephrology and [facility] s/p cardiac arrest with acute hypoxic respiratory failure. Hospital course to date: 07/31: No cough/gag, no pupillary response. CT head ordered. Nephrology plans to HD today. No acute events reported overnight. Updated niece at bedside 08/01: Patient had a nuclear brain flow study today. Trocar sites changed to DNR. Ordered for blood pressure. Family meeting compelted Hospitalist Physical - Constitutional Vitals: Temp Pulse Resp BP Pulse Ox 96.1 F L 54 L 18 70/43 93 08/01/22 11:57 08/01/22 14:00 08/01/22 14:00 08/01/22 14:00 08/01/22 14:00 General appearance: Present: other (Intubated) HEART Score - HEART Score Troponin: Troponin T 0.117 ng/mL (0.00-0.029) H* 07/30/22 06:34 Results - Labs CBC & Chem 7: 07/31/22 04:20 08/01/22 04:34 Labs: Laboratory Last Values WBC 9.0 K/mm3 (4.5-11.0) 07/31/22 04:20 RBC 3.57 M/mm3 (3.65-5.03) L 07/31/22 04:20 Hgb 10.1 gm/dl (11.8-15.2) L 07/31/22 04:20 Hct 31.2 % (35.5-45.6) L 07/31/22 04:20 MCV 88 fl (84-94) 07/31/22 04:20 MCH 28 pg (28-32) 07/31/22 04:20 MCHC 33 % (32-34) 07/31/22 04:20 RDW 17.3 % (13.2-15.2) H 07/31/22 04:20 Plt Count 168 K/mm3 (140-440) 07/31/22 04:20 Lymph % (Auto) 6.0 % (13.4-35.0) L 07/31/22 04:20 Morrill % (Auto) 5.1 % (0.0-7.3) 07/31/22 04:20 Eos % (Auto) 0.1 % (0.0-4.3) 07/31/22 04:20 Baso % (Auto) 0.2 % (0.0-1.8) 07/31/22 04:20 Lymph # (Auto) 0.5 K/mm3 (1.2-5.4) L 07/31/22 04:20 Morrill # (Auto) 0.5 K/mm3 (0.0-0.8) 07/31/22 04:20 Eos # (Auto) 0.0 K/mm3 (0.0-0.4) 07/31/22 04:20 Baso # (Auto) 0.0 K/mm3 (0.0-0.1) 07/31/22 04:20 Seg Neutrophils % 88.6 % (40.0-70.0) H 07/31/22 04:20 Seg Neutrophils # 8.0 K/mm3 (1.8-7.7) H 07/31/22 04:20 ABG pH 7.483 pH Units (7.350-7.450) H 08/01/22 03:30 ABG pCO2 37.2 mm Hg 08/01/22 03:30 ABG pO2 98.2 mm Hg (80.0-90.0) H 08/01/22 03:30 ABG HCO3 27.3 mmol/L (20.0-26.0) H 08/01/22 03:30 ABG O2 Saturation 97.7 % (95.0-99.0) 08/01/22 03:30 ABG O2 Content 13.0 (0.0-44) 08/01/22 03:30 ABG Base Excess 3.7 mmol/L (-2.0-3.0) H 08/01/22 03:30 ABG Hemoglobin 9.5 gm/dl (14.0-18.0) L 08/01/22 03:30 ABG Carboxyhemoglobin 1.4 % (0.0-5.0) 08/01/22 03:30 ABG Methemoglobin 0.5 % (0.0-1.5) 08/01/22 03:30 Oxyhemoglobin 95.9 % (95.0-99.0) 08/01/22 03:30 FiO2 50 % 08/01/22 03:30 Sodium 138 mmol/L (137-145) 08/01/22 04:34 Potassium 3.5 mmol/L (3.6-5.0) L D 08/01/22 04:34 Chloride 99.2 mmol/L (98-107) 08/01/22 04:34 Carbon Dioxide 26 mmol/L (22-30) 08/01/22 04:34 Anion Gap 16 mmol/L 08/01/22 04:34 BUN 27 mg/dL (9-20) H 08/01/22 04:34 Creatinine 3.9 mg/dL (0.8-1.3) H 08/01/22 04:34 Estimated GFR 20 ml/min 08/01/22 04:34 BUN/Creatinine Ratio 7 % 08/01/22 04:34 Glucose 113 mg/dL (75-100) H 08/01/22 04:34 POC Glucose 122 mg/dL (70-105) H 08/01/22 11:53 Calcium 8.0 mg/dL (8.4-10.2) L 08/01/22 04:34 Total Bilirubin 0.50 mg/dL (0.1-1.2) 08/01/22 11:29 AST 48 units/L (5-40) H 08/01/22 11:29 ALT 48 units/L (7-56) 08/01/22 11:29 Alkaline Phosphatase 100 units/L (35-129) 08/01/22 11:29 Troponin T 0.117 ng/mL (0.00-0.029) H* 07/30/22 06:34 Total Protein 7.4 g/dL (6.3-8.2) 07/30/22 06:34 Albumin 3.6 g/dL (3.9-5) L 07/30/22 06:34 Albumin/Globulin Ratio 0.9 % 07/30/22 06:34 Triglycerides 49 mg/dL (2-149) 07/30/22 06:34 Cholesterol 86 mg/dL (50-199) 07/30/22 06:34 LDL Cholesterol Direct 24 mg/dL (50-130) L 07/30/22 06:34 HDL Cholesterol 57 mg/dL (40-59) 07/30/22 06:34 Cholesterol/HDL Ratio 1.50 % 07/30/22 06:34 Lipase 42 units/L (13-60) 07/30/22 06:34 Urine Opiates Screen Negative 07/30/22 07:03 Urine Methadone Screen Negative 07/30/22 07:03 Ur Barbiturates Screen Negative 07/30/22 07:03 Ur Phencyclidine Scrn Negative 07/30/22 07:03 Ur Amphetamines Screen Negative 07/30/22 07:03 U Benzodiazepines Scrn Negative 07/30/22 07:03 Urine Cocaine Screen Negative 07/30/22 07:03 U Marijuana (THC) Screen Negative 07/30/22 07:03 Drugs of Abuse Note Disclamer 07/30/22 07:03 Hepatitis A IgM Ab Non-reactive (NonReactive) 07/30/22 09:02 Hep Bs Antigen Non-reactive (Negative) 07/30/22 09:02 Hep B Core IgM Ab Non-reactive (NonReactive) 07/30/22 09:02 Hepatitis C Antibody Non-reactive (NonReactive) 07/30/22 09:02 He/IV: Voiding Method Indwelling Catheter Active Medications - Current Medications Current Medications: Generic Name Dose Route Start Last Admin Trade Name Freq PRN Reason Stop Dose Admin Acetaminophen 650 mg 07/30/22 09:30 Acetaminophen 325 Mg Tab PO Q4H PRN Pain MILD(1-3)/Fever >100.5/CLARK Albuterol 2.5 mg 07/30/22 09:19 Albuterol 2.5 Mg/3 Ml Nebu IH Q3HRT PRN Shortness Of Breath Albuterol/Ipratropium 1 ampul 07/30/22 14:00 08/01/22 07:34 Ipratropium/Albuterol Sulfate 3 Ml Ampul.Neb IH 1 ampul Q6HRT KRISTINA Administration Aspirin 325 mg 07/30/22 10:00 08/01/22 09:45 Aspirin 325 Mg Tab PO 325 mg QDAY KRISTINA Administration Atorvastatin Calcium 40 mg 07/30/22 22:00 07/31/22 23:06 Atorvastatin 40 Mg Tab PO 40 mg QHS KRISTINA Administration Bumetanide 1 mg 07/30/22 10:00 08/01/22 09:45 Bumetanide 1 Mg Tab PO 1 mg BID KRISTINA Administration Citalopram Hydrobromide 40 mg 07/30/22 10:00 08/01/22 09:45 Citalopram 20 Mg Tab PO 40 mg DAILY KRISTINA Administration Dextrose 50 ml 07/30/22 09:19 Dextrose 50% In Water (25gm) 50 Ml Syringe IV Q30MIN PRN Hypoglycemia Protocol Epoetin Jb-epbx 10,000 unit 07/30/22 09:00 07/30/22 18:23 Epoetin Jb-Epbx 10,000 Unit/1 Ml Vial IV 10,000 unit EVELINA PRN Administration hemodialysis Famotidine 20 mg 07/31/22 10:00 08/01/22 09:45 Famotidine 20 Mg/2 Ml Inj IV 20 mg DAILY KRISTINA Administration Heparin Sodium (Porcine) 3,000 unit 07/30/22 09:00 07/31/22 18:40 Heparin 10,000 Units/10 Ml Vial IV 3,000 unit EVELINA PRN Administration hemodialysis Fentanyl Citrate 1,000 mcg in 100 mls @ 2.5 mls/hr 07/30/22 08:00 Fentanyl Drip Premix IV TITR KRISTINA Protocol 25 MCG/HR Sodium Chloride 100 mls @ 999 mls/hr 07/30/22 09:00 Nacl 0.9% IV EVELINA PRN Hypotension NORepinephrine/NS 8 MG-250 ML 8 mg in 250 mls @ 14.884 mls/hr 08/01/22 15:00 08/01/22 14:15 Norepinephrine/Ns 8 Mg-250 Ml (Double Conc) IV 0.1 mcg/kg/min TITRATE KRISTINA 14.884 mls/hr Administration Protocol 0.1 MCG/KG/MIN Phenylephrine HCl 100 mg/ 250 mls @ 5.953 mls/hr 08/01/22 14:15 Sodium Chloride IV TITRATE KRISTINA Protocol 0.5 MCG/KG/MIN Insulin Glargine 20 units 07/30/22 10:30 08/01/22 09:55 Insulin Glargine 100 Units/Ml SUB-Q 20 units QAM KRISTINA Administration Insulin Human Lispro 0 unit 07/30/22 12:00 08/01/22 11:57 Insulin Lispro 100 Unit/Ml SUB-Q Not Given Q6HR KRISTINA Protocol Midodrine 10 mg 08/01/22 09:30 08/01/22 11:57 Midodrine 10 Mg Tab FEEDTUBE 10 mg TID@0800,1200,1600 KRISTINA Administration Ondansetron HCl 4 mg 07/30/22 10:00 Ondansetron 4 Mg/2 Ml Inj IV Q8H PRN Nausea And Vomiting Sodium Chloride 10 ml 07/30/22 10:00 08/01/22 09:55 Sodium Chloride 0.9% 10 Ml Flush Syringe IV 10 ml BID KRISTINA Administration Sodium Chloride 10 ml 07/30/22 10:00 Sodium Chloride 0.9% 10 Ml Flush Syringe IV PRN PRN LINE FLUSH Nutrition/Malnutrition Assess - Dietary Evaluation Nutrition/Malnutrition Findings: Nutrition Notes Start: 07/30/22 13:12 Freq: Status: Active Protocol: Document 08/01/22 14:18 LIZETH (Rec: 08/01/22 14:23 LIZETH [id number]) Nutrition Notes Initial or Follow up Brief Note Current Diagnosis CKD (stage V CKD),Diabetes, Hypertension,Respiratory Failure,Stroke Other Pertinent Diagnosis ESRD+HD, CHF, s/p Cardiopulmonary Arrest x2, Metabolic Encephalopathy, ... Current Diet NPO (since 07/30 09:20). Height 5 ft 6 in Weight 79.379 kg [place] Body Weight (kg) 64.54 BMI 28.2 Weight change and time frame No body weight change reported in 2 days. Weight Status Overweight Subjective/Other Information RD consult for routine F/U on dietary advancement. Pt continues on NPO. Pt is on Mechanical Ventilation, O2 saturation @ 99%, according to [facility] notes. Pt still in critical condition , not a candidate for Nutrition Education at the time, will assess feasibility on F/U. Percent of energy/protein needs met: Pt continues on NPO. Nutrition Intervention Follow-Up By: 08/03/22 Additional Comments Nutrition education will be provided at F/U, if feasible. When pertinent, advance to PO diet and start monitoring food tolerance, %PO intake of meals, and BM.
--- NOTE | 2022-08-01 14:30 | Death Summary ---
Summary - Providers Date of service: 08/01/22 Consults: 07/30/22 09:19 Consult to Dietitian/Nutrition [CONS] Routine Physician Instructions: Reason For Exam: Reason for Consult: Diet education Consult to Physician [CONS] Routine Comment: Consulting Provider: BARBIE GRACIA Physician Instructions: Reason For Exam: Cardiac arrest Consult to Physician [CONS] Routine Comment: Consulting Provider: SHARMILA COLEMAN Physician Instructions: Reason For Exam: esrd 07/30/22 09:23 Consult to Physician [CONS] Routine Comment: Consulting Provider: STEVEN EVANS Physician Instructions: Reason For Exam: Cardiac arrest Attending: DALIA PARKER MD - summary Date of admission: 07/30/22 09:19 Date of : 08/01/22 Significant findings: This is a 51-year-old male with ESRD on HD, CHF, CVA, CAD s/p CABG (10 years ago) DM presents emergency department on 07/30 due to shortness of breath and lethargy. In the emergency department patient was found to have a BUN/creatinine of 69/1.3, hyperkalemia 6.2, elevated troponin at 0.117. Emergency department patient suffered a cardiac arrest x3 and prior to the arrest he was in sinus bradycardic. ROSC was achieved in the ED. Patient was admitted to the hospitalist service with consults to cardiology, nephrology and [facility] s/p cardiac arrest with acute hypoxic respiratory failure. 07/31 patient received hemodialysis. Patient is CT head which showed findings consistent with diffuse hypoxic ischemic injury, developing herniation with basilar cisterns effacement and crowding of the foramen magnum. Today patient had a nuclear brain flow study which still pending official read. Family did elect to change patient's status to allow natural . Time of at 1427 and patient was pronounced by Dr. Parker. Anoxic brain injury S/p cardiac arrest x3 post ROSC Elevated troponins Acute systolic heart failure h/o CAD s/p CABG, HTN Acute hypoxic respiratory failure Moderate protein calorie malnutrition, obesity ESRD on HD h/o type II DM AOCD
--- NOTE | 2022-08-01 14:38 | Nuclear Medicine Report ---
NUCLEAR MEDICINE BRAIN FLOW HISTORY: Cardiac arrest x3. No cough, gag or pupillary response. Evaluate for brain . TECHNIQUE: Anterior images of the head and neck were obtained following injection of 22.0 mCi of tech netium 99m pertechnetate. Static images were also obtained in AP and lateral projections. COMPARISON: CT head dated 07/31/2022. FINDINGS: There is symmetric and normal flow overlying the common carotid arteries. No intracranial flow is det ected overlying the cerebral hemispheres. Flow is identified in the external carotid artery territori es. IMPRESSION: No evidence for intracranial blood flow. Signer Name: Alonso Lynch Jr, MD Signed: 08/01/2022 2:34 PM Workstation Name: [id number]
[2022-08-01] MEDS ORDERED: NORepinephrine/NS 8 MG-250 ML 8 MG/250 ML INFUS..BTL IV SCH (15:00)
== END 2022-08-01 14:27 | DRG 208 ==
LOC: ED 05:47 → CC1 09:19
PROVIDERS: ADMIT Hospitalist; ATTEND Internal Medicine
PROC: 5A1945Z Respiratory Ventilation, 24-96 Consecutive Hours (ICD-10-PCS; principal; 2022-07-30)
PROC: 0BH17EZ Insertion of Endotracheal Airway into Trachea, Via Natural or Artificial Opening (ICD-10-PCS; 2022-07-30)
PROC: 5A1D70Z Performance of Urinary Filtration, Intermittent, Less than 6 Hours Per Day (ICD-10-PCS; 2022-07-30)
PROC: 4A033R1 Measurement of Arterial Saturation, Peripheral, Percutaneous Approach (ICD-10-PCS; 2022-07-31)
PROC: 5A1D70Z Performance of Urinary Filtration, Intermittent, Less than 6 Hours Per Day (ICD-10-PCS; 2022-07-31)
DX: J96.01 Acute respiratory failure with hypoxia (principal); G93.41 Metabolic encephalopathy; N18.6 End stage renal disease; I50.21 Acute systolic (congestive) heart failure; I13.2 Hypertensive heart and chronic kidney disease with heart failure and with stage 5 chronic kidney disease, or end stage renal disease; E87.5 Hyperkalemia; E11.22 Type 2 diabetes mellitus with diabetic chronic kidney disease; Z99.2 Dependence on renal dialysis; F17.200 Nicotine dependence, unspecified, uncomplicated; E11.319 Type 2 diabetes mellitus with unspecified diabetic retinopathy without macular edema; I46.9 Cardiac arrest, cause unspecified; E11.65 Type 2 diabetes mellitus with hyperglycemia; D63.8 Anemia in other chronic diseases classified elsewhere; G93.1 Anoxic brain damage, not elsewhere classified; E66.9 Obesity, unspecified; I49.8 Other specified cardiac arrhythmias; R57.9 Shock, unspecified; I25.10 Atherosclerotic heart disease of native coronary artery without angina pectoris; Z86.73 Personal history of transient ischemic attack (TIA), and cerebral infarction without residual deficits; Z95.1 Presence of aortocoronary bypass graft; Z79.4 Long term (current) use of insulin
CPT/HCPCS: 36415; 36600; 70450; 71045; 74018; 78601; 80048; 80053; 80061; 80074; 80307; 82247; 82803; 82962; 83690; 84075; 84450; 84460; 84484; 85025; 93005; 93306; 94002; 94003; 94640; 96374; 96375; 99291; 99292; G0378; J2354; J3490; Q9967; A9512; C8929; J0171; J0282; J0461; J0610; J0885; J1265; J1644; J1815; J7050